=== PATIENT | female | born 1935 | race Caucasian/White ===

== ENCOUNTER → 2016-08-29 | Outpatient (CLI) | payer MEDICARE ==
[2016-08-29 14:19] LABS: CH 32.8; CHCM 34.4; HCT 41.4 % (34.0-46.0); HDW 2.51; HGB 13.8 gm/dL (11.4-16.0); MCH 31.9 pg (25.0-35.0); MCHC 33.3 g/dL (31.0-37.0); MCV 95.7 fL (80.0-100.0); Mean Platelet Volume 7.5; RBC 4.33 m/uL (3.80-5.40); WBC 6.5 k/uL (3.8-10.6)
== END | disposition home or self-care (01) ==
LOC: LABPAT 13:53
PROVIDERS: ATTEND Otolaryngology
DX: Z01.818 Encounter for other preprocedural examination (principal)
CPT/HCPCS: 85027

== ENCOUNTER 2016-09-07 10:24 | Day surgery (SDC) | payer MEDICARE ==
[2016-09-06 08:41] VITALS: BMI 30.2
--- NOTE | 2016-09-07 07:22 | HP ---
DATE OF ADMISSION: CHIEF COMPLAINT: Perforation of the left tympanic membrane. HISTORY OF PRESENT ILLNESS: This patient is a 81-year-old female who was recently seen in my office complaining having a plugged sensation in both ears. She wears bilateral hearing aids. At a time that she was seen in my office, clinical examination of the ears initially revealed bilaterally impacted cerumen which was removed without any difficulty. In addition to this, it was noted that there was a perforation in the left tympanic membrane. The patient states that she has had multiple ear surgeries at the [facility] over the years. The patient was advised that that the perforation could be closed using the Kartush patch and this would most likely improve the efficiency hearing aid. Therefore, she is scheduled undergo insertion of a left Kartush patch to a perforation of the left tympanic membrane under IV sedation or general anesthetic, depending on the Anesthesia Department's preference. Past medical history reveals the patient has ALLERGIES TO PENICILLIN AND SULFA. Current medications include Prevacid, losartan, Zoloft and hydrochlorothiazide. REVIEW OF SYSTEMS: Cardiovascular is positive for hypertension. Gastrointestinal system is positive for GERD. The remainder of the review of systems is essentially unremarkable. PHYSICAL EXAMINATION: This patient is a very pleasant 81-year-old female who is alert and cooperative. HEENT EXAMINATION: Patient is normocephalic. Right tympanic membrane is unremarkable. Left tympanic membrane has a small central perforation in the left tympanic membrane. The middle ear space appears to be free of any fluid or infection. Pupils are equal, round, and reactive to light and accommodation. Extraocular movements are within normal limits. Intranasal examination reveals moderate septal deviation with compensatory hypertrophy of inferior turbinates and a moderate amount of mucus on the mucous membranes and draining down the posterior pharyngeal wall. Palpation of the neck, cranial nerves II through XII and the remainder of the head and neck exam are all within normal limits. CHEST/CARDIOVASCULAR: Both lung gonzales are clear to percussion and auscultation. Patient is in regular sinus rhythm. S1 and S2 are present without any murmurs, S3s or S4s. Peripheral pulses are bilaterally symmetrical. ABDOMEN: There is no evidence of any masses, megaly or tenderness. The abdomen is soft. Skin is unremarkable. Musculoskeletal and neurological are within normal limits. PELVIC/RECTAL EXAM: The pelvic rectal exam is deferred at this time because the patient has done a regular basis at her family physician's office. The remainder of physical exam is unremarkable. IMPRESSION: Perforation of the left tympanic membrane. PLAN: The patient is scheduled to undergo insertion of a Kartush patch to a perforation of the left tympanic membrane under either IV sedation or general anesthesia, depending upon the anesthesia department's preference. Attention RNs in the presurgical area: I have not ordered any presurgical medications for this patient. That is to say, I have not ordered any presurgical prophylactic antibiotics for this patient. If the pharmacy department sends any presurgical prophylactic antibiotics to the presurgical area for this patient they should be returned and the patient's account should be credited appropriately. Again, I have not ordered any presurgical medications for this patient. I have explained the operation/procedure to the patient, including the risks, benefits, side effects, alternative therapies (including not receiving the proposed treatment or service), the likelihood of the patient achieving his/her goals, and potential recuperation problems for the procedure/sedation/analgesia, as well as any blood products, if indicated. I also explained to the patient the risks, benefits, and side effects of the alternatives, as well as the risks related to not receiving the proposed procedure, care treatment or services.
[~2016-09-07 10:24] MED LIST: DEXAMETHASONE SOD PHOSPHATE 10 MG/ML 1 ML VIAL IV ONE; HYDROmorphone 1 MG/ML 1 ML SYRINGE IVP PRN; LACTATED RINGERS 1,000 ML IV SCH; MIDAZOLAM 2 MG/2 ML VIAL IV PRN; ONDANSETRON 4 MG/2 ML VIAL IVP ONE; Pre Op ABX Message 1 EACH MISC MISCELLANE ONE; SCOPOLAMINE 1.5MG/72HR PATCH TRANSDERM ONE
[2016-09-07 10:47] VITALS: RESP 16; TEMP 97.4
[2016-09-07] MEDS ORDERED: LIDOCAINE 1% 20 ML VIAL (10MG/ML) FOR IV START INTRADERMA ONE (10:47)
[2016-09-07] MEDS ORDERED: OFLOXACIN 0.3% OPHTH DROPS 5 ML BOTTLE LEFT EAR ONE (12:14)
[2016-09-07] MEDS ORDERED: LIDOCAINE 1% INJ 10MG/ML (20 ML MDV) ONE (12:26)
[2016-09-07] MEDS ORDERED: PROPOFOL 10 MG/ML 20 ML VIAL IV ONE (12:26)
[2016-09-07] MEDS ORDERED: fentaNYL (PF) 50 MCG/ML 2 ML AMP ONE (12:26)
[2016-09-07] MEDS ORDERED: MIDAZOLAM 2 MG/2 ML VIAL ONE (12:26)
[2016-09-07 14:08] VITALS: BP 143/77; PULSE 77
--- NOTE | 2016-09-09 14:55 | OP ---
DATE OF SERVICE: 09/07/2016 SURGEON: CELENA CAPELLAN MD NUTRITIONALIST: PREOPERATIVE DIAGNOSIS: Perforation of the left tympanic membrane. POSTOPERATIVE DIAGNOSIS: Perforation of the left tympanic membrane. OPERATION: Insertion of a 5 mm Kartush patch to a perforation of the left tympanic membrane. ANESTHESIA: IV sedation with MAC. ESTIMATED BLOOD LOSS: Zero. SPECIMENS REMOVED: COMPLICATIONS: None. OPERATIVE FINDINGS: DESCRIPTION OF PROCEDURE: The patient was placed on the operating table in the supine position after uneventful IV induction and mask anesthesia, satisfactory IV sedation was obtained. Next, the patient's left ear was draped in the usual and customary fashion, and following this, using the Zeiss operating microscope and #3 Aural speculum, the left external auditory canal was cleansed of all wax and debris. Inspection revealed the patient had a central perforation and it was elected to use a 5 mm Kartush patch to cover this perforation. This patch was initially dipped in Ofloxacin otic solution and subsequently the lower leaf of the patch was trimmed to accommodate the ossicles in the middle ear space. Next, the patch was carefully placed in the perforation in the usual fashion and was carefully seated appropriately to cover the entire perforation. This was done without any significant difficulty. At this point, the procedure was terminated. There were no intraoperative complications. The patient tolerated the procedure well and was returned to the recovery room in satisfactory condition.
== END 2016-09-07 14:40 | disposition home or self-care (01) ==
LOC: OR 10:24
PROVIDERS: ATTEND Otolaryngology
DX: H72.92 Unspecified perforation of tympanic membrane, left ear (principal); I10 Essential (primary) hypertension; E78.5 Hyperlipidemia, unspecified; K21.9 Gastro-esophageal reflux disease without esophagitis; Z88.0 Allergy status to penicillin; Z88.2 Allergy status to sulfonamides; Z79.899 Other long term (current) drug therapy
CPT/HCPCS: 69610; J2250; J1100; J2405; J2001; J3010; J2704

== ENCOUNTER 2016-10-22 08:39 | Day surgery (SDC) | payer MEDICARE ==
[2016-10-18 15:04] VITALS: BMI 30.2
--- NOTE | 2016-10-22 05:13 | HP ---
DATE OF ADMISSION: Chief complaint is fluid in the right ear. HISTORY OF PRESENT ILLNESS: This patient is a 81-year-old female who was recently seen in my office complaining of a plugged sensation in her right ear. At this time the patient was seen in my office, clinical examination of the right ear revealed evidence of fluid and negative pressure in the right middle ear space representing, so-called chronic right serous otitis media. Patient was placed on a course of oral steroids namely Decadron for a period of approximately 10 days. Approximately 2 weeks later the patient was re-examined in the office and at that time stated that the right ear still felt as if it was plugged. Clinical examination once again revealed the patient had chronic right serous otitis media, so-called glue ear. It was therefore recommended that the patient undergo a right myringotomy with insertion of a ventilation tube under IV sedation with MAC. Past medical history reveals that the patient has allergies to PENICILLIN and to SULFA. Current medications include Prevacid, losartan, Zoloft and Symbicort inhaler. Previous surgeries include breast biopsy, which was positive for carcinoma, reconstruction of the left middle ear, right strabismus surgery, hysterectomy for cancer of the uterus, tonsillectomy, adenoidectomy, left knee replacement, multiple skin cancers removed, bunionectomy, urethral lithotomy, insertion of a left Kartush patch. ( ) is negative for diabetes mellitus, but positive for hypertension and asthma. Review of systems reveals that the cardiovascular system is positive for hypertension. Respiratory system is positive for asthma. Gastrointestinal system is positive for GERD. The remainder of review of systems is unremarkable. PHYSICAL EXAMINATION: This patient is a 81-year-old female who is alert and cooperative. HEENT EXAMINATION: Patient is normocephalic. Examination of left ear revealed the patient has a Kartush patch that is intact and in place. Examination of right ear reveals right tympanic membrane is dull with fluid in the right middle ear space. Pupils equal, round, and reactive to light and accommodation. Extraocular movements are within normal limits. Intranasal examination reveals moderate to severe septal deviation with compensatory hypertrophy of the inferior turbinates and moderate amount of mucus on mucous membranes draining down the posterior pharynx. Examination of oropharynx, palpation of the neck, cranial nerves 2 through 12 and remainder of the head and neck exam are all within normal limits. CHEST/CARDIOVASCULAR: Both lung gonzales are clear to percussion and auscultation. The patient is in regular sinus rhythm. S1 and S2 are present without any murmurs, S3s or S4s. Peripheral pulses are bilaterally symmetrical and within normal limits. ABDOMEN: There is no evidence of any masses, megaly or tenderness. The abdomen is soft. Skin is unremarkable. Musculoskeletal and neurological are within normal limits. PELVIC/RECTAL EXAM: The pelvic rectal exam is deferred at this time because the patient has this done on a regular basis at her family physician's office. The remainder of physical exam is essentially unremarkable. IMPRESSION: Chronic right serous otitis media. PLAN: The patient is scheduled to undergo a right myringotomy with insertion of a ventilation tube under IV sedation with MAC in the a.m. ATTENTION RNS IN THE PRESURGICAL AREA: I have not ordered any presurgical prophylactic antibiotics for this patient and therefore if the pharmacy department sends any presurgical prophylactic antibiotics to the presurgical area for this patient, please cancel that order and return the medication to the pharmacy department and make sure that the patient's account is credited appropriately. I have not ordered any presurgical medications for this patient. I have explained the operation/procedure to the patient, including the risks, benefits, side effects, alternative therapies (including not receiving the proposed treatment or service), the likelihood of the patient achieving his/her goals, and potential recuperation problems for the procedure/sedation/analgesia, as well as any blood products, if indicated. I also explained to the patient the risks, benefits, and side effects of the alternatives, as well as the risks related to not receiving the proposed procedure, care treatment or services.
[~2016-10-22 08:39] MED LIST changes: -DEXAMETHASONE SOD PHOSPHATE 10 MG/ML 1 ML VIAL IV ONE; -SCOPOLAMINE 1.5MG/72HR PATCH TRANSDERM ONE
[2016-10-22 09:02] VITALS: RESP 16; TEMP 97.9
[2016-10-22] MEDS ORDERED: LIDOCAINE 1% 20 ML VIAL (10MG/ML) FOR IV START INTRADERMA ONE (09:29)
[2016-10-22] MEDS ORDERED: OFLOXACIN 0.3% OTIC DROPS 5 ML BTL RIGHT EAR ONE (09:44)
[2016-10-22] MEDS ORDERED: PROPOFOL 10 MG/ML 20 ML VIAL IV ONE (10:13)
[2016-10-22] MEDS ORDERED: fentaNYL (PF) 50 MCG/ML 2 ML AMP ONE (10:13)
[2016-10-22] MEDS ORDERED: MIDAZOLAM 2 MG/2 ML VIAL ONE (10:13)
[2016-10-22] MEDS ORDERED: LIDOCAINE 1% INJ 10MG/ML (20 ML MDV) ONE (10:13)
[2016-10-22 11:02] VITALS: BP 137/78; PULSE 67
--- NOTE | 2016-10-22 23:33 | OP ---
DATE OF SERVICE: 10/22/2016 SURGEON: CELENA CAPELLAN MD NURSE LICENSED PRACTICAL: PREOPERATIVE DIAGNOSIS: Chronic right serous otitis media. POSTOPERATIVE DIAGNOSIS: Chronic right serous otitis media. OPERATION: Right myringotomy with insertion of an Activent ventilation tube. ANESTHESIA: IV sedation with M.A.C. ESTIMATED BLOOD LOSS: SPECIMENS REMOVED: COMPLICATIONS: None. OPERATIVE PROCEDURE: The patient was placed on the operating table in supine position. After uneventful induction and IV sedation, satisfactory sedation was obtained. Next the patient's right ear was draped in the usual and customary fashion, following which, using the Zeiss operating microscope and a #3 aural speculum, the right external auditory canal was cleansed of all wax and debris. 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 Using the myringotomy knife, an incision was made in the anterior/inferior quadrant of the right tympanic membrane. Middle ear space was suctioned free of a small amount of fluid and an Activent Khushi-Bobbin type ventilation tube was inserted through the previously made myringotomy incision without difficulty. At this point the procedure was terminated. There were no intraoperative complications. The patient tolerated the procedure well and was returned to the recovery room in satisfactory condition.
== END 2016-10-22 11:43 | disposition home or self-care (01) ==
LOC: OR 08:39
PROVIDERS: ATTEND Otolaryngology
DX: H65.21 Chronic serous otitis media, right ear (principal); J34.2 Deviated nasal septum; J34.3 Hypertrophy of nasal turbinates; H74.01 Tympanosclerosis, right ear; I10 Essential (primary) hypertension; J45.909 Unspecified asthma, uncomplicated; K21.9 Gastro-esophageal reflux disease without esophagitis; Z87.891 Personal history of nicotine dependence; Z79.51 Long term (current) use of inhaled steroids; Z79.899 Other long term (current) drug therapy; Z88.0 Allergy status to penicillin; Z88.2 Allergy status to sulfonamides
CPT/HCPCS: 69436; J2250; J2405; J2001; J3010; J2704

== ENCOUNTER → 2016-10-30 | Outpatient (CLI) | payer MEDICARE ==
--- NOTE | 2016-11-01 10:11 | MM ---
Reason for exam: history of breast cancer, mastectomy. Last mammogram was performed 1 year and 3 months ago. History: Patient is postmenopausal, has history of ovarian cancer at age 61, has history of breast cancer at age 48, has history of high-risk lesion on a previous biopsy at age 48, and is nulliparous. Family history of breast cancer in paternal aunt. Mastectomy of the left breast, 1983. Physical Findings: Nurse did not find any significant physical abnormalities on exam. MG Diagnostic Mammo RT w CAD CC and MLO view(s) were taken of the right breast. Prior study comparison: July 28, 2015, right breast MG 3d diag mammo w/cad RT. The breast tissue is heterogeneously dense. This may lower the sensitivity of mammography. No significant new findings when compared with previous films. These results were verbally communicated with the patient and result sheet given to the patient on 10/30/16. ASSESSMENT: Benign, BI-RAD 2 RECOMMENDATION: Follow-up diagnostic mammogram of the right breast in 1 year.
== END | disposition home or self-care (01) ==
LOC: RADMAMWWP 13:27
PROVIDERS: ATTEND Family Medicine
DX: Z08 Encounter for follow-up examination after completed treatment for malignant neoplasm (principal); Z85.3 Personal history of malignant neoplasm of breast

== ENCOUNTER → 2018-01-23 | Outpatient (CLI) | payer MEDICARE ==
--- NOTE | 2018-01-25 10:06 | MM ---
Reason for exam: additional evaluation requested from prior study. Last mammogram was performed 1 year and 3 months ago. History: Patient is postmenopausal, has history of ovarian cancer at age 61, has history of breast cancer at age 48, has history of high-risk lesion on a previous biopsy at age 48, and is nulliparous. Family history of breast cancer in paternal aunt. Mastectomy of the left breast, 1983. Physical Findings: Nurse did not find any significant physical abnormalities on exam. MG 3D Diag Mammo W/Cad RT CC, MLO, and ML view(s) were taken of the right breast. Prior study comparison: October 30, 2016, right breast MG diagnostic mammo RT w CAD. July 28, 2015, right breast MG 3d diag mammo w/cad RT. May 03, 2014, right breast MG diagnostic mammo RT w CAD. The breast tissue is heterogeneously dense. This may lower the sensitivity of mammography. Finding: There are benign vascular, round, linear, diffuse and grouped calcifications in the right breast. No discrete abnormality. These results were verbally communicated with the patient and result sheet given to the patient on 01/23/18. ASSESSMENT: Benign, BI-RAD 2 RECOMMENDATION: Follow-up diagnostic mammogram of the right breast in 1 year.
== END | disposition home or self-care (01) ==
LOC: RADMAMWWP 12:47
PROVIDERS: ATTEND Family Medicine
DX: Z08 Encounter for follow-up examination after completed treatment for malignant neoplasm (principal); Z85.3 Personal history of malignant neoplasm of breast
CPT/HCPCS: 77065; G0279; 77061

== ENCOUNTER → 2019-01-01 | Outpatient (CLI) | payer MEDICARE ==
--- NOTE | 2019-01-01 15:53 | US ---
EXAMINATION TYPE: US venous doppler duplex LE RT DATE OF EXAM: 01/01/2019 3:43 PM COMPARISON: NONE CLINICAL HISTORY: DVT RT Leg, knee area. Posterior right knee pain. No hx of blood clots. No blood t hinners. No redness or swelling. SIDE PERFORMED: Right TECHNIQUE: The lower extremity deep venous system is examined utilizing real time linear array sonog nithin with graded compression, doppler sonography and color-flow sonography. VESSELS IMAGED: External Iliac Vein (EIV) Common Femoral Vein Deep Femoral Vein Greater Saphenous Vein * Femoral Vein Popliteal Vein Small Saphenous Vein * Proximal Calf Veins (* superficial vessels) Right Leg: Negative for DVT Grayscale, color doppler, spectral doppler imaging performed of the deep veins of the right lower ext remity. There is normal flow, compressibility, vascular waveforms. IMPRESSION: No ultrasound evidence for acute DVT in the right lower extremity.
== END | disposition home or self-care (01) ==
LOC: RADMAMWWP 15:16
PROVIDERS: ATTEND Podiatrist Foot & Ankle Surgery
DX: I82.401 Acute embolism and thrombosis of unspecified deep veins of right lower extremity (principal)

== ENCOUNTER → 2019-01-27 | Outpatient (CLI) | payer MEDICARE ==
--- NOTE | 2019-01-27 14:21 | MM ---
Reason for exam: additional evaluation requested from prior study. Last mammogram was performed 1 year ago. History: Patient is postmenopausal, has history of ovarian cancer at age 61, has history of breast cancer at age 48, has history of high-risk lesion on a previous biopsy at age 48, and is nulliparous. Family history of breast cancer in paternal aunt. Mastectomy of the left breast, 1983. Physical Findings: Nurse did not find any significant physical abnormalities on exam. MG 3D Diag Mammo W/Cad RT CC, MLO, and ML view(s) were taken of the right breast. Prior study comparison: January 23, 2018, right breast MG 3d diag mammo w/cad RT. October 30, 2016, right breast MG diagnostic mammo RT w CAD. The breast tissue is heterogeneously dense. This may lower the sensitivity of mammography. There are benign appearing right calcifications. Posterior depth superior breast group on MLO is stable from 2016. No suspicious abnormality. No significant new findings when compared with previous films. These results were verbally communicated with the patient and result sheet given to the patient on 01/27/19. ASSESSMENT: Benign, BI-RAD 2 RECOMMENDATION: Follow-up diagnostic mammogram of the right breast in 1 year.
== END | disposition home or self-care (01) ==
LOC: RADMAMWWP 12:57
PROVIDERS: ATTEND Family Medicine
DX: Z85.3 Personal history of malignant neoplasm of breast (principal)
CPT/HCPCS: 77065; G0279; 77061

== ENCOUNTER 2020-08-01 09:10 | Day surgery (SDC) | payer MEDICARE ==
[2020-07-29 11:24] VITALS: BMI 29.2
--- NOTE | 2020-07-31 19:55 | HP ---
HISTORY AND PHYSICAL CHIEF COMPLAINT: Fluid in the left ear. HISTORY OF PRESENT ILLNESS: This patient is an 85-year-old female who was recently seen in my office for evaluation of decreased hearing in her left ear. She underwent a tympanoplasty without mastoidectomy with reconstruction of the ossicles of her left ear at the [facility] several years ago. At that time she had a ventilation tube placed in the left ear after surgery. There is extensive scar tissue of the left tympanic membrane. At the time that she was seen in my office, clinical examination of the left ear revealed that the left tympanic membrane was dull with evidence of fluid in the left middle ear space. The patient was placed on multiple courses of oral antibiotics and oral steroids without any significant improvement. On the last visit, the patient said that the left ear still felt blocked and clinical examination revealed that there was still fluid in the left middle ear space without evidence of any perforation. It was therefore recommended that the patient undergo a left myringotomy, insertion of a ventilation tube, possible possibly a Jaye T-type ventilation tubes under IV sedation with MAC. PAST MEDICAL HISTORY: Past medical history reveals patient has: ALLERGIES: TO PENICILLIN AND SULFA. CURRENT MEDICATIONS: Include Olmesartan/HCTZ, Flovent, Prevacid, Effexor. REVIEW OF SYSTEMS: Cardiovascular: Positive for hypertension. RESPIRATORY: Positive for asthma. Metabolic/endocrine is negative. GASTROINTESTINAL: Positive for GERD, gastroesophageal reflux disorder. The remainder of the review of systems in unremarkable. PREVIOUS SURGERIES: Include right myringotomy, with insertion of right ventilation tube, insertion of a left Kartush patch, left knee replacement, mastectomy for carcinoma, right strabismus surgery, hysterectomy for carcinoma of the uterus, tonsillectomy, adenoidectomy, tympanoplasty without mastoidectomy and reconstruction of the middle ear ossicles, urethral lithotomy, bunionectomy, and multiple skin cancers removed. PHYSICAL EXAMINATION: This patient is an 85-year-old female who was alert and cooperative. HEENT exam: The patient is normocephalic. Examination right ear is unremarkable. Examination of the left ear reveals left tympanic membrane shows scar tissue and evidence of fluid in the left middle ear space. Pupils equal, round, react to light and accommodation. Extraocular movements within normal limits. Intranasal examination reveals moderate to severe septal deviation with compensatory hypertrophy of the inferior turbinates and a moderate amount of mucus on the mucous membranes and draining down the posterior pharynx. Examination of the oropharynx, cranial nerves 2 through 12 and the remainder of the head and neck exam are within normal limits. Chest/cardiovascular: Both lung gonzales are clear to percussion and auscultation. The patient is in regular sinus rhythm. S1 and S2 are present. No murmurs S3s or S4s. Peripheral pulses are bilaterally symmetrical and within normal limits. ABDOMEN: There is no evidence any masses, megaly or tenderness. The abdomen is soft. Skin, neurological are within normal limits. MUSCULOSKELETAL: Within normal limits. Pelvic/rectal exam: The pelvic rectal exam is deferred at this time because the patient has this done on a regular basis at her family physician's office.The remainder of the physical exam is within normal limits. IMPRESSION: Chronic left serous otitis media. PLAN: The patient is scheduled to undergo a left myringotomy with insertion of a ventilation tube, possibly a Jaye T-type ventilation tube, with IV sedation with M.A.C.. Attention RNs in the pre-surgical area: The only pre-surgical prophylactic antibiotic that I have ordered for this patient is clindamycin 900 mg IV to be given in the pre- surgical area before surgery. If the pharmacy department sends a different pre- surgical prophylactic/antibiotic combination, please cancel that order and return the medication to the pharmacy department and make sure that the patient's account is credited appropriately. The patient is given clindamycin because of an ALLERGY TO PENICILLIN and because of a previous left knee replacement. MMODL / IJN: [id number] / MTDD
[~2020-08-01 09:10] MED LIST changes: -HYDROmorphone 1 MG/ML 1 ML SYRINGE IVP PRN; -LACTATED RINGERS 1,000 ML IV SCH; -MIDAZOLAM 2 MG/2 ML VIAL IV PRN; -ONDANSETRON 4 MG/2 ML VIAL IVP ONE
[2020-08-01] MEDS ORDERED: CLINDAMYCIN 900 MG in DEXTROSE 5% IN WATER 50 ML IVPB ONE ×2 (09:45)
[2020-08-01] MEDS ORDERED: LACTATED RINGERS 1,000 ML IV ONE ×2 (09:50→12:29)
[2020-08-01] MEDS ORDERED: LIDOCAINE 1% (10MG/ML) FOR IV START INTRADERMA ONE (09:51)
[2020-08-01] MEDS ORDERED: ONDANSETRON 4 MG/2 ML VIAL ONE (10:05)
[2020-08-01] MEDS ORDERED: ONDANSETRON 4 MG/2 ML VIAL IVP ONE (10:08)
[2020-08-01] MEDS ORDERED: ePHEDrine SULFATE/0.9% NACL/PF 50 MG/5 ML SYRINGE IV ONE (11:49)
[2020-08-01] MEDS ORDERED: fentaNYL (PF) 50 MCG/ML 2 ML AMP ONE (11:49)
[2020-08-01] MEDS ORDERED: PROPOFOL 10 MG/ML 20 ML VIAL IV ONE (11:49)
[2020-08-01] MEDS ORDERED: LIDOCAINE 1% INJ 10MG/ML (20 ML MDV) ONE (11:49)
[2020-08-01] MEDS ORDERED: MIDAZOLAM 2 MG/2 ML VIAL ONE (11:49)
[2020-08-01] MEDS ORDERED: OFLOXACIN 0.3% OPHTH DROPS 5 ML BOTTLE LEFT EAR ONE (12:10)
[2020-08-01] MEDS ORDERED: EPINEPHrine (PF) 1 MG/ML AMP MISCELLANE ONE (12:15)
[2020-08-01 12:42] VITALS: TEMP 97.2
[2020-08-01 12:55] VITALS: RESP 16
[2020-08-01 13:35] VITALS: BP 105/62; PULSE 100
--- NOTE | 2020-08-01 19:34 | OP ---
OPERATIVE REPORT DATE OF SURGERY: 08/01/2020. PREOPERATIVE DIAGNOSIS: Chronic left serous otitis media. POSTOPERATIVE DIAGNOSIS: Chronic left serous otitis media. ANESTHESIA: IV sedation with M.A.C. OPERATIVE PROCEDURE: Left myringotomy with insertion of a Jaye-type T-tube. SURGEON: Dr. Russell Armando COMPLICATIONS: None. ESTIMATED BLOOD LOSS: Zero. OPERATIVE PROCEDURE DESCRIPTION: The patient was placed on the operating table in supine position. After uneventful IV sedation, satisfactory sedation was obtained. Next, the patient's left ear was prepped and draped in the usual and customary fashion. Following this, using the Zeiss operating microscope and a #3 aural speculum, the left external auditory canal was cleansed of all wax and debris. Inspection of the left tympanic membrane revealed that approximately 85% of the tympanic membrane was scarred with tympanosclerosis and calcium deposits. Centrally there was an area of viable tympanic membrane where an incision could be made. Therefore, using the myringotomy knife, an incision was made in this area in the anterior inferior quadrant, and the left middle ear space was suctioned free of all fluid. There also appeared to be some additional material in the left middle ear space which most likely related to the patient's previous ossicular reconstruction. Next, a Jaye-type T-tube was inserted through the previously made myringotomy incision without difficulty. At this point, the procedure was terminated. There were no intraoperative complications. The patient tolerated the procedure well and was returned to the recovery room in satisfactory condition. MMODL / IJN: [id number] /
== END 2020-08-01 13:45 | disposition home or self-care (01) ==
LOC: OR 09:10
PROVIDERS: ATTEND Otolaryngology
DX: H65.22 Chronic serous otitis media, left ear (principal); I10 Essential (primary) hypertension; E78.5 Hyperlipidemia, unspecified; J44.9 Chronic obstructive pulmonary disease, unspecified; K21.9 Gastro-esophageal reflux disease without esophagitis; Z88.0 Allergy status to penicillin; Z88.2 Allergy status to sulfonamides; Z87.891 Personal history of nicotine dependence; Z87.442 Personal history of urinary calculi; Z79.899 Other long term (current) drug therapy
CPT/HCPCS: 69436; J2250; J2405; J0171; J2001; J3010; J2704

== ENCOUNTER → 2020-10-26 | Outpatient (CLI) | payer MEDICARE ==
--- NOTE | 2020-10-26 15:16 | CONS ---
CONSULTATION DATE OF SERVICE: 10/26/2020 INTERVAL HISTORY: This 85-year-old lady has been evaluated in the sleep center for possible obstructive sleep apnea-hypopnea syndrome and for significant amount of leg movements during the sleep. HISTORY OF PRESENT ILLNESS/SLEEP-WAKE EVALUATION: Patient's usual sleep schedule from 11 p.m. until 8 a.m. and she usually gets out of bed around 10 a.m. No problems with falling asleep. No TV in the bedroom. She sleeps in different position. She snores and wakes up from sleep 3 times with a dry mouth, heartburn and sweating. No history of nocturia. In the morning patient wakes up tired and has difficulties paying attention, problems with the memory, concentration, irritability, depression and anxiety. [place] Sleepiness Scale increased to 14. PAST MEDICAL HISTORY: Positive for hypertension, anxiety, arthritis of the neck and hands, lungs problems, possible COPD, prediabetes. PAST SURGICAL HISTORY: Treatment for cancer of the left breast with left side mastectomy, hysterectomy for ovarian cancer, left knee replacement, surgery for left ear problems for reconstruction of the middle ear. MEDICATIONS: Olmesartan hydrochlorothiazide 40-25 mg once a day, Flovent 44 mcg 3 times a day, lansoprazole once a day, sertraline 100 mg once a day, folic acid, turmeric. SOCIAL HISTORY: Positive for smoking for 30 pack years, quit in 1991. Alcohol consumption none for the last 40 years. FAMILY HISTORY: Diabetes, alcoholism. REVIEW OF SYSTEMS: Tiredness and sleepiness during the day. Patient takes 2 naps, usually afternoon, episodes of wheezing. PHYSICAL EXAMINATION: GENERAL: A lady without distress. VITAL SIGNS: BP 154/71, HR 87, RR 12, height 5 feet 2 inches, weight 165.8 pounds, temperature 97.9, oxygen saturation at room air 98%. Body mass index 30.1. HEENT: PERRLA, EOMI, evaluation of oropharynx showed tongue protrudes midline. NECK: Supple, no JVD. Thyroid is not palpable. LUNGS: Clear to percussion and to auscultation. Good air exchange. No wheezing or rhonchi. HEART: S1, S2 regular. No murmurs, gallops, or rubs. ABDOMEN: Soft and nontender. Bowel sounds are present. No organomegaly appreciated. EXTREMITIES: No clubbing or cyanosis. TURBO GENERATOR OILER: Awake, alert, and oriented X3. Cranial nerves 2 to 7 intact. There is no fasciculation or atrophy. noted. No focal deficits observed. IMPRESSION: 1. Snoring, awakenings from sleep, extremely low position of soft palate, sleepiness. [place] Sleepiness Scale increased to 14. Possible obstructive sleep apnea- hypopnea syndrome. 2. Restless leg symptoms. 3. History of twitching legs during the night, periodic limb movements. 4. Hypertension. 5. Anxiety. 6. Arthritis of neck and hands. 7. Chronic obstructive pulmonary disease. 8. Prediabetes. 9. Status post left mastectomy for breast carcinoma. 10.History of ovarian cancer, status post total hysterectomy. 11.Status post left knee replacement. 12.Status post left internal ear reconstruction surgery. PLAN: 1. Polysomnography for evaluation of patient's breathing during sleep and also to check for periodic limb movements. 2. CPAP/BiPAP titration if sleep study confirms obstructive sleep apnea-hypopnea syndrome. 3. Preferable position during sleep on the side. 4. No driving if patient feels any sleepiness. 5. I will see patient for follow up visit to explain results of testing and following plan. Thank you very much for referring this patient for consultation. Sincerely, Chris Woods MD, PhD, FAASM Diplomat of [place] [employer] [employer] Information Services Vice President of [facility] [place] MMDANYELL / CASSANDRA: [id number] /
== END ==
LOC: SLEEP 13:39
PROVIDERS: ATTEND Internal Medicine
DX: R06.83 Snoring (principal); G25.81 Restless legs syndrome; G47.61 Periodic limb movement disorder; I10 Essential (primary) hypertension; F41.9 Anxiety disorder, unspecified; M47.812 Spondylosis without myelopathy or radiculopathy, cervical region; M19.042 Primary osteoarthritis, left hand; M19.041 Primary osteoarthritis, right hand; J44.9 Chronic obstructive pulmonary disease, unspecified; F32.9 Major depressive disorder, single episode, unspecified; R73.03 Prediabetes; Z90.12 Acquired absence of left breast and nipple; Z85.43 Personal history of malignant neoplasm of ovary; Z90.710 Acquired absence of both cervix and uterus; Z96.652 Presence of left artificial knee joint; Z96.29 Presence of other otological and audiological implants; Z85.3 Personal history of malignant neoplasm of breast; Z79.899 Other long term (current) drug therapy; Z87.891 Personal history of nicotine dependence; Z79.51 Long term (current) use of inhaled steroids
CPT/HCPCS: 99211

== ENCOUNTER → 2021-04-06 | Outpatient (CLI) | payer MEDICARE ==
--- NOTE | 2021-04-06 18:08 | SFUN ---
SLEEP CENTER FOLLOW UP NOTE DATE OF SERVICE: 04/06/2021. This 85-year-old lady has been followed in Sleep Center for treatment of obstructive sleep apnea-hypopnea syndrome. Recently the patient had a polysomnogram which showed moderate obstructive sleep apnea- hypopnea syndrome. Then the patient had CPAP titration. Today is her first visit after starting to use her CPAP equipment. At present the patient is using a full-face mask. I feel that there is some leak from the mask. She also tried a nasal pillow mask, and she likes the nasal pillow mask better. [place] Sleepiness Scale today is 8. I discussed results of the polysomnogram and CPAP titration with the patient in detail. Her questions about the result of her sleep studies were answered in detail. I checked her CPAP unit. Range of the pressure is 5 to 15 with average pressure 13.9, usage 29/30 nights and 25/30 nights for more than 4 hours, indicating good compliance. Leak is 16 L/minute, which is borderline. Apnea-hypopnea index is 4.7, which is normal. The patient still feels some tiredness during the day. Both sleep studies showed a significant amount of periodic limb movements, in severe range. MEDICATIONS: Lansoprazole, sertraline 100 mg once a day, folic acid, turmeric, Flovent 45 mcg 4 times a day, olmesartan/hydrochlorothiazide 40/25 mg once a day. PHYSICAL EXAMINATION: GENERAL APPEARANCE: Pleasant patient in no distress. VITAL SIGNS: BP 142/60, HR 75, RR 16, weight 163.6, temperature 97.3, oxygen saturation at room air 95%. HEENT: PERRLA, EOMI, evaluation of oropharynx showed tongue protrudes midline. NECK: Supple, no JVD. Thyroid is not palpable. LUNGS: Clear to percussion and to auscultation. Good air exchange. No wheezing or rhonchi. HEART: S1, S2 regular. No murmurs, gallops, or rubs. ABDOMEN: Soft and nontender. Bowel sounds are present. No organomegaly appreciated. EXTREMITIES: No clubbing or cyanosis. PILL MACHINE OPERATOR: Awake, alert, and oriented X3. Cranial nerves 2 to 7 intact. There is no fasciculation or atrophy. noted. No focal deficits observed. IMPRESSION: 1. Moderate obstructive sleep apnea-hypopnea syndrome. Apnea-hypopnea index 26.8 with oxygen desaturation to 81.4%. Patient demonstrated good compliance with treatment. Normal respiration on CPAP. Patient is experiencing some discomfort with the full- face mask; dryness in the mouth. 2. Severe periodic limb movements documented during both sleep studies. 3. Hypertension. 4. Anxiety. 5. History of chronic obstructive pulmonary disease. 6. Prediabetes. 7. Status post left mastectomy for breast carcinoma. 8. History of ovarian carcinoma, status post total hysterectomy. 9. Status post left knee replacement. 10.Status post left internal ear reconstruction surgery. PLAN: 1. Patient will try to use nasal pillow mask with a chin strap. Prescription for chin strap was written. 2. Prescription for Mirapex 0.125 mg 1-2 tablets at bedtime. 3. Patient will continue to use PAP equipment every night for the whole night. 4. Sleep hygiene with regular time in bed for at least 7-1/2 to 8 hours. 5. Precautions related to driving. No driving if feeling sleepiness. 6. I will maintain all necessary prescription for PAP supplies including mask, tube, filters. 7. Watching weight. 8. Follow-up visit in 6 months or earlier if patient has any problems. 9. I discussed with the patient in detail how to keep the machine. I explained to her how to adjust humidity, the necessity of changing the air filter at least once a month. Thank you very much for allowing me to participate in the management of your patient. Sincerely, Chris Woods MD, PhD, FAASM Diplomat of [place] [employer] Sleep Medicine Board of [place] [employer] Hog Buyer of [facility] [place] MMPRAMODL / YESSICAN: [id number] /
== END ==
LOC: SLEEP 10:59
PROVIDERS: ATTEND Internal Medicine
DX: G47.33 Obstructive sleep apnea (adult) (pediatric) (principal); G47.36 Sleep related hypoventilation in conditions classified elsewhere; G47.61 Periodic limb movement disorder; I10 Essential (primary) hypertension; F41.9 Anxiety disorder, unspecified; J44.9 Chronic obstructive pulmonary disease, unspecified; R73.03 Prediabetes; Z90.12 Acquired absence of left breast and nipple; Z85.43 Personal history of malignant neoplasm of ovary; Z96.652 Presence of left artificial knee joint; Z98.890 Other specified postprocedural states; Z90.711 Acquired absence of uterus with remaining cervical stump; Z99.89 Dependence on other enabling machines and devices; Z88.0 Allergy status to penicillin; Z88.2 Allergy status to sulfonamides

== ENCOUNTER 2021-05-17 00:18 | Inpatient (IN) | payer MEDICARE ==
[2021-05-17] MEDS ORDERED: SODIUM CHLORIDE 0.9% 500 ML 500 ML IV STA (00:41)
[2021-05-17 01:58] LABS: Basophils # (A) 0.1 k/uL (0-0.2); Basophils % (A) 1 %; Eosinophils # (A) 0.3 k/uL (0-0.7); Eosinophils % (A) 2 %; HCT 40.6 % (34.0-46.0); HGB 13.8 gm/dL (11.4-16.0); Lymphocytes # (A) 1.5 k/uL (1.0-4.8); Lymphocytes % (A) 13 %; MCV 93.9 fL (80.0-100.0); Mean Platelet Volume 7.3; Monocytes # (A) 0.4 k/uL (0-1.0); Monocytes % (A) 4 %; Neutrophils # (A) 8.5 k/uL (1.3-7.7); Neutrophils % (A) 79 %; Platelet Count 268 k/uL (150-450); RBC 4.33 m/uL (3.80-5.40); WBC 10.8 k/uL (3.8-10.6)
[2021-05-17 02:06] LABS: Appearance,Urine Clear (Clear); Bilirubin,Urine Negative (Negative); Blood,Urine Negative (Negative); Color,Urine Light Yellow; Glucose,Urine (UA) Negative (Negative); Ketones,Urine Negative (Negative); Leukocyte Esterase,Urine Negative (Negative); Nitrite,Urine Negative (Negative); PH, Urine 6.5 (5.0-8.0); Protein,Urine Negative (Negative); Urobilinogen,Urine <2.0 mg/dL (<2.0)
[2021-05-17 02:27] LABS: Albumin 4.3 g/dL (3.5-5.0); Calcium 9.8 mg/dL (8.4-10.2); Potassium 4.1 mmol/L (3.5-5.1); Total Bilirubin 0.4 mg/dL (0.2-1.3); Total Protein 7.2 g/dL (6.3-8.2)
--- NOTE | 2021-05-17 03:06 | ED ---
Abdominal Pain HPI - General Chief Complaint: Abdominal Pain Stated Complaint: Abd Pain Time Seen by Provider: 05/17/21 00:33 Source: patient, EMS Mode of arrival: EMS Limitations: no limitations - History of Present Illness Initial Comments: 85-year-old female patient presents to the emergency department today for evaluation of lower abdominal pain and nausea after eating a lot of Nanci candy today. Patient states that she started having pain just a couple hours prior to arrival. States she thought it was gas but was unable to. Denies taking any medication for her symptoms. She has not had any vomiting. States she did have a bowel movement earlier in the day. A short brief episode of diarrhea this evening. She denies any fevers but states she has been chilled. She has had bowel obstruction in the past. She has had hysterectomy and hernia repair. She denies any chest pain or shortness of breath. Denies any hematuria, dysuria, urinary urgency, urinary frequency. - Related Data Home Medications Medication Instructions Recorded Confirmed Lansoprazole [Prevacid] 15 mg PO DAILY 08/11/14 08/01/20 Fluticasone Propionate [Flovent 2 puff INHALATION BID 07/29/20 08/01/20 Hfa 44 mcg] Folic Acid 0.8 mg PO DAILY 07/29/20 08/01/20 Multivitamins, Thera [Multivitamin 1 tab PO DAILY 07/29/20 08/01/20 (formulary)] Olmesartan/Hydrochlorothiazide 1 each PO DAILY 07/29/20 08/01/20 [Olmesartan-Hctz 40-25 mg Tab] Sertraline [Zoloft] 100 mg PO DAILY 07/29/20 08/01/20 Allergies Allergy/AdvReac Type Severity Reaction Status Date / Time Penicillins Allergy Rash/Hives Verified 08/01/20 09:40 Sulfa (Sulfonamide Allergy Unknown Verified 08/01/20 09:40 Antibiotics) Childhood Review of Systems ROS Statement: Those systems with pertinent positive or pertinent negative responses have been documented in the HPI. ROS Other: All systems not noted in ROS Statement are negative. Past Medical History Past Medical History: Cancer, GERD/Reflux, Hearing Disorder / Deafness, Hypertension, Osteoarthritis (OA), Respiratory Disorder, Skin Disorder Additional Past Medical History / Comment(s): HX AURA MIGRAINES HX LT BREAST CA, OVARIAN CA, & SKIN CA (NUMEROUS SITES). BRONCHITIS. VARICOSE VEINS. HX KIDNEY STONES-YRS AGO. 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 LT MASTECTOMY. LT TOTAL KNEE. KIDNEY STONE SURGICALLY REMOVED YRS AGO. alexia cataracts with lens implants Past Anesthesia/Blood Transfusion Reactions: Previous Problems w/ Anesthesia Additional Past Anesthesia/Blood Transfusion Reaction / Comment(s): HAD HEMORRHAGING W/ INTUBATION FOR EAR SURGERY-SURGERY WAS CANCELLED AT THAT TIME; POSS DIFF INTUBATING. was in ICU for 3 days. pt states her PCP has been unable to get anesthesia record from [facility]. Past Psychological History: Anxiety Smoking Status: Former smoker - Past Family History Father Family Medical History: Cancer Mother Family Medical History: Cancer Mother Brother(s) Family Medical History: Cancer Brother(s) Family Medical History: Cancer General Exam Limitations: no limitations General appearance: alert, in no apparent distress, other (This is a well- developed, well-nourished elderly female patient in no acute distress.) ENT exam: Present: normal exam, normal oropharynx, mucous membranes moist Respiratory exam: Present: normal lung sounds bilaterally. Absent: respiratory distress, wheezes, rales, rhonchi, stridor Cardiovascular Exam: Present: regular rate, normal rhythm, normal heart sounds. Absent: systolic murmur, diastolic murmur, rubs, gallop, clicks GI/Abdominal exam: Present: soft, tenderness (Lower abdominal tenderness), normal bowel sounds. Absent: distended, guarding, rebound, rigid Neurological exam: Present: alert, oriented X3, CN II-XII intact Psychiatric exam: Present: normal affect, normal mood Skin exam: Present: warm, dry, intact, normal color. Absent: rash Course Vital Signs 05/17/21 00:21 Temperature 98.0 F Pulse Rate 92 Respiratory 96 H Rate Blood Pressure 167/80 O2 Sat by Pulse 97 Oximetry Medical Decision Making - Medical Decision Making 85-year-old female patient presents to the emergency department for evaluation of lower abdominal pain and nausea. Unable to pass gas this evening. Does have history of bowel obstruction. Physical examination did reveal lower abdominal tenderness. She is afebrile. Labs showed acute kidney injury.. CT abdomen and pelvis did reveal partial small bowel obstruction. To be admitted to the hospital for further evaluation and monitoring. She is agreeable this plan. My attending is Dr. Hayes. - Lab Data Result diagrams: 05/17/21 01:25 05/17/21 01:25 Lab Results 05/17/21 05/17/21 05/17/21 Range/Units 01:25 01:25 01:25 WBC 10.8 H (3.8-10.6) k/uL RBC 4.33 (3.80-5.40) m/uL Hgb 13.8 (11.4-16.0) gm/dL Hct 40.6 (34.0-46.0) % MCV 93.9 (80.0-100.0) fL MCH 32.0 (25.0-35.0) pg MCHC 34.0 (31.0-37.0) g/dL RDW 12.0 (11.5-15.5) % Plt Count 268 (150-450) k/uL MPV 7.3 Neutrophils % 79 % Lymphocytes % 13 % Monocytes % 4 % Eosinophils % 2 % Basophils % 1 % Neutrophils # 8.5 H (1.3-7.7) k/uL Lymphocytes # 1.5 (1.0-4.8) k/uL Monocytes # 0.4 (0-1.0) k/uL Eosinophils # 0.3 (0-0.7) k/uL Basophils # 0.1 (0-0.2) k/uL Sodium 138 (137-145) mmol/L Potassium 4.1 (3.5-5.1) mmol/L Chloride 106 (98-107) mmol/L Carbon Dioxide 20 L (22-30) mmol/L Anion Gap 12 mmol/L BUN 28 H (7-17) mg/dL Creatinine 1.22 H (0.52-1.04) mg/dL Est GFR (CKD-EPI)AfAm 47 (>60 ml/min/1.73 sqM) Est GFR (CKD-EPI)NonAf 41 (>60 ml/min/1.73 sqM) Glucose 147 H (74-99) mg/dL Plasma Lactic Acid Robbi (0.7-2.0) mmol/L Calcium 9.8 (8.4-10.2) mg/dL Total Bilirubin 0.4 (0.2-1.3) mg/dL AST 28 (14-36) U/L ALT 19 (4-34) U/L Alkaline Phosphatase 104 (38-126) U/L Troponin I (0.000-0.034) ng/mL Total Protein 7.2 (6.3-8.2) g/dL Albumin 4.3 (3.5-5.0) g/dL Lipase 14 L (23-300) U/L Urine Color Light Yellow Urine Appearance Clear (Clear) Urine pH 6.5 (5.0-8.0) Ur Specific [place] 1.010 (1.001-1.035) Urine Protein Negative (Negative) Urine Glucose (UA) Negative (Negative) Urine Ketones Negative (Negative) Urine Blood Negative (Negative) Urine Nitrite Negative (Negative) Urine Bilirubin Negative (Negative) Urine Urobilinogen <2.0 (<2.0) mg/dL Ur Leukocyte Esterase Negative (Negative) 05/17/21 05/17/21 Range/Units 01:25 01:25 WBC (3.8-10.6) k/uL RBC (3.80-5.40) m/uL Hgb (11.4-16.0) gm/dL Hct (34.0-46.0) % MCV (80.0-100.0) fL MCH (25.0-35.0) pg MCHC (31.0-37.0) g/dL RDW (11.5-15.5) % Plt Count (150-450) k/uL MPV Neutrophils % % Lymphocytes % % Monocytes % % Eosinophils % % Basophils % % Neutrophils # (1.3-7.7) k/uL Lymphocytes # (1.0-4.8) k/uL Monocytes # (0-1.0) k/uL Eosinophils # (0-0.7) k/uL Basophils # (0-0.2) k/uL Sodium (137-145) mmol/L Potassium (3.5-5.1) mmol/L Chloride (98-107) mmol/L Carbon Dioxide (22-30) mmol/L Anion Gap mmol/L BUN (7-17) mg/dL Creatinine (0.52-1.04) mg/dL Est GFR (CKD-EPI)AfAm (>60 ml/min/1.73 sqM) Est GFR (CKD-EPI)NonAf (>60 ml/min/1.73 sqM) Glucose (74-99) mg/dL Plasma Lactic Acid Robbi 1.2 (0.7-2.0) mmol/L Calcium (8.4-10.2) mg/dL Total Bilirubin (0.2-1.3) mg/dL AST (14-36) U/L ALT (4-34) U/L Alkaline Phosphatase (38-126) U/L Troponin I <0.012 (0.000-0.034) ng/mL Total Protein (6.3-8.2) g/dL Albumin (3.5-5.0) g/dL Lipase (23-300) U/L Urine Color Urine Appearance (Clear) Urine pH (5.0-8.0) Ur Specific [place] (1.001-1.035) Urine Protein (Negative) Urine Glucose (UA) (Negative) Urine Ketones (Negative) Urine Blood (Negative) Urine Nitrite (Negative) Urine Bilirubin (Negative) Urine Urobilinogen (<2.0) mg/dL Ur Leukocyte Esterase (Negative) - EKG Data -: EKG Interpreted by [facility] EKG Comments: EKG obtained at this 1:30 shows sinus rhythm with an incomplete right bundle branch block. Ventricular rate is 83, PA interval 154, QRS duration 112, QT 382, QTc 448. - Radiology Data Radiology results: report reviewed, image reviewed T abdomen and pelvis was obtained without contrast. Report reviewed in its entirety. Impression by Dr. Edmonds shows dilated small bowel suggestive of partial mechanical small bowel obstruction. Mild free fluid in the pelvis. Sigmoid diverticulosis. Disposition Clinical Impression: Small bowel obstruction, Acute kidney injury Disposition: ADMITTED IP TO [facility] Condition: Serious Referrals: Maribeth Campo MD [Primary Care Provider] - 1-2 days Decision to Admit Reason: Admit from EC Decision Date: 05/17/21 Decision Time: 03:39
--- NOTE | 2021-05-17 03:11 | CT ---
EXAMINATION TYPE: CT abdomen pelvis wo con DATE OF EXAM: 05/17/2021 COMPARISON: None HISTORY: ABD PAIN, VOMITING CT DLP: 559.70 mGycm Automated exposure control for dose reduction was used. Images obtained from the diaphragm to the floor the pelvis without contrast. FINDINGS: Lung bases are clear. There is no pleural effusion. Heart size is normal. There is no pericardial eff usion. There is hiatal hernia. Stomach is intact. Liver spleen pancreas gallbladder appear intact. The bile ducts are not dilated. There is no adrenal mass. Kidneys have normal size. There is no hydronephrosis. There is 4 mm calculu s upper pole left kidney. Ureters are not dilated. There is no retroperitoneal adenopathy. Bladder di stends smoothly. There is mild free fluid in the pelvis. There is no inguinal hernia. There is no cory dence of pelvic mass. There is previous surgery in the pelvis. There are some mildly dilated loops of small bowel in the upper abdomen.. The small bowel measures up to 3.3 cm. There are multiple fluid levels. Transition point not seen. Terminal ileum is not dilated . There are multiple sigmoid diverticula. There is no diverticulitis. There is multilevel lumbar spondylotic changes. There is mild dextroscoliosis. There is lumbar multil evel spinal stenosis due to endplate spur formation and facet arthropathy. There is no compression fr acture. There is multilevel facet arthropathy. Abdominal aorta is atheromatous. IMPRESSION: Dilated small bowel suggestive of partial mechanical small bowel obstruction. Mild free fluid in the pelvis. Sigmoid diverticulosis.
[2021-05-17] MEDS ORDERED: NALOXONE 0.4 MG/ML 1 ML VIAL IV PRN (03:27)
[2021-05-17] MEDS ORDERED: ONDANSETRON 4 MG/2 ML VIAL IVP PRN (03:36)
[2021-05-17] MEDS: MORPHINE SULFATE 2 MG/ML SYRINGE IV PRN ×2 (04:32→10:00)
[2021-05-17] MEDS: SODIUM CHLORIDE 0.9% 1,000 ML IV SCH ×2 (04:47→20:51)
--- NOTE | 2021-05-17 12:40 | P.HPIM ---
History of Present Illness Patient is a pleasant 85-year-old female came in with complaints of crampy moderate severe lower abdominal pain along with nausea vomiting which she attributes to a lot of Nanci and the she was eating. Patient has bowel movement was yesterday patient is found to have partial small bowel obstruction because of which patient is being admitted with NG tube. Patient is also hyponatremic and does have acute renal failure secondary to nausea vomiting. Patient denied any fever chills. REVIEW OF SYSTEMS: CONSTITUTIONAL: No fever, no malaise, no fatigue. HEENT: No recent visual problems or hearing problems. Denied any sore throat. CARDIOVASCULAR: No chest pain, orthopnea, PND, no palpitations, no syncope. PULMONARY: No shortness of breath, no cough, no hemoptysis. GASTROINTESTINAL: As mentioned in HPI. NEUROLOGICAL: No headaches, no weakness, no numbness. HEMATOLOGICAL: Denies any bleeding or petechiae. GENITOURINARY: Denies any burning micturition, frequency, or urgency. MUSCULOSKELETAL/RHEUMATOLOGICAL: Denies any joint pain, swelling, or any muscle pain. ENDOCRINE: Denies any polyuria or polydipsia. The rest of the 14-point review of systems is negative. PHYSICAL EXAMINATION: GENERAL: The patient is alert and oriented x3, not in any acute distress. Well developed, well nourished. HEENT: Pupils are round and equally reacting to light. EOMI. No scleral icterus. No conjunctival pallor. Normocephalic, atraumatic. No pharyngeal erythema. No thyromegaly. CARDIOVASCULAR: S1 and S2 present. No murmurs, rubs, or gallops. PULMONARY: Chest is clear to auscultation, no wheezing or crackles. ABDOMEN: Soft, nontender, nondistended, bowel sounds present no palpable organomegaly. MUSCULOSKELETAL: No joint swelling or deformity. EXTREMITIES: No cyanosis, clubbing, or pedal edema. NEUROLOGICAL: Gross neurological examination did not reveal any focal deficits. SKIN: No rashes. Assessment and plan -partial small bowel obstruction: Conservative measures, IV fluids continue with NG tube with low intermittent suction, avoid morphine if possible, patient will be started on IV Tylenol for pain. -Acute renal failure prerenal azotemia secondary to intravascular depletion from nausea vomiting patient can you done IV fluids increase the rate of IV fluids -Hypertension: Holding off on ESTRELLA inhibitor and a diuretic temporarily for now -Gastroesophageal reflux disease DVT prophylaxis: Subcutaneous heparin Past Medical History Past Medical History: Cancer, GERD/Reflux, Hearing Disorder / Deafness, Hypertension, Osteoarthritis (OA), Respiratory Disorder, Skin Disorder Additional Past Medical History / Comment(s): HX AURA MIGRAINES HX LT BREAST CA, OVARIAN CA, & SKIN CA (NUMEROUS SITES). BRONCHITIS. VARICOSE VEINS. HX KIDNEY STONES-YRS AGO. SQUAXIN ALEXIA EARS- WEARS ALEXIA AIDS - LT EAR WORSE (RECENTLY PATCHED), "prediabetic"-no rx History of Any Multi-Drug Resistant Organisms: None Reported Past Surgical History: Breast Surgery, Ear Surgery, Hysterectomy, Joint Replacem ent, Orthopedic Surgery, Tubal Ligation Additional Past Surgical History / Comment(s): LEFT EAR SURGERY X3, PATCH DONE, ALEXIA BUNIONECTOMY. LT MASTECTOMY. LT TOTAL KNEE. KIDNEY STONE SURGICALLY REMOVED YRS AGO. alexia cataracts with lens implants Past Anesthesia/Blood Transfusion Reactions: Previous Problems w/ Anesthesia Additional Past Anesthesia/Blood Transfusion Reaction / Comment(s): HAD HEMORRHAGING W/ INTUBATION FOR EAR SURGERY-SURGERY WAS CANCELLED AT THAT TIME; POSS DIFF INTUBATING. was in ICU for 3 days. pt states her PCP has been unable to get anesthesia record from [facility]. Past Psychological History: Anxiety Smoking Status: Former smoker - Past Family History Father Family Medical History: Cancer Mother Family Medical History: Cancer Mother Brother(s) Family Medical History: Cancer Brother(s) Family Medical History: Cancer Medications and Allergies Home Medications Medication Instructions Recorded Confirmed Type Fluticasone Propionate [Flovent 2 puff INHALATION RT-BID 07/29/20 05/17/21 History Hfa 44 mcg] Folic Acid 0.8 mg PO DAILY 07/29/20 05/17/21 History Olmesartan/Hydrochlorothiazide 1 tab PO DAILY 07/29/20 05/17/21 History [Olmesartan-Hctz 40-25 mg Tab] Sertraline [Zoloft] 100 mg PO DAILY 07/29/20 05/17/21 History Ammonium Lactate Cream [Lac-Hydrin 1 applic TOPICAL DAILY 05/17/21 05/17/21 History 12% Cream] Multivit-Min/Iron/Folic/Lutein 1 tab PO DAILY 05/17/21 05/17/21 History [Centrum Silver Women Tablet] Omeprazole 20 mg PO DAILY 05/17/21 05/17/21 History Allergies Allergy/AdvReac Type Severity Reaction Status Date / Time Penicillins Allergy Rash/Hives Verified 05/17/21 07:12 Sulfa (Sulfonamide Allergy Rash/Hives Verified 05/17/21 07:12 Antibiotics) Physical Exam Vitals: Vital Signs Temp Pulse Resp BP Pulse Ox 05/17/21 10:00 97.9 F 80 18 143/80 98 05/17/21 06:19 85 16 135/61 95 05/17/21 04:11 98.0 F 94 20 157/81 96 05/17/21 00:21 98.0 F 92 16 167/80 97 Intake and Output 05/16/21 05/17/21 05/17/21 22:59 06:59 14:59 Other: Weight 74.843 kg Results CBC & Chem 7: 05/17/21 01:25 05/17/21 01:25 Labs: Abnormal Lab Results - Last 24 Hours (Table) 05/17/21 05/17/21 Range/Units 01:25 01:25 WBC 10.8 H (3.8-10.6) k/uL Neutrophils # 8.5 H (1.3-7.7) k/uL Carbon Dioxide 20 L (22-30) mmol/L BUN 28 H (7-17) mg/dL Creatinine 1.22 H (0.52-1.04) mg/dL Glucose 147 H (74-99) mg/dL Lipase 14 L (23-300) U/L
--- NOTE | 2021-05-17 12:45 | P.GSCN ---
<Mago Atkinson - Last Filed: 05/17/21 12:40> History of Present Illness Consult date: 05/17/21 History of present illness: CHIEF COMPLAINT: Abdominal pain HISTORY OF PRESENT ILLNESS: This is an 85-year-old female with a prior history of bowel obstruction requiring lysis of adhesions 40 years ago. Patient reports that she started to have lower abdominal pain yesterday evening around [address] she ate a bunch of Nanci candy. Patient had nausea and vomiting. She did have an episode of diarrhea. She reports that her abdomen was distended. Her prior surgical history includes hysterectomy and tubal ligation. Patient has computed tomography scan abdomen showed evidence of a partial mechanical small bowel obstruction. Patient had NG tube placed in the emergency room. Surgical consult was placed for small bowel obstruction. Patient does admit to passing a small amount of gas since NG tube placed. Patient denies any fever, chills or sweats. PAST MEDICAL HISTORY: See list. PAST SURGICAL HISTORY: See list. MEDICATIONS: See list. ALLERGIES: See list. SOCIAL HISTORY: No illicit drug use. REVIEW OF SYSTEMS: CONSTITUTIONAL: Denies fever or chills. HEENT: Denies blurred vision, vision changes, or eye pain. Denies hemoptysis CARDIOVASCULAR: Denies chest pain or pressure. RESPIRATORY: No shortness of breath. GASTROINTESTINAL: See HPI for pertinent findings HEMATOLOGIC: Denies bleeding disorders. GENITOURINARY: Denies any blood in urine or increased urinary frequency. SKIN: Denies pruitis. Denies rash. PHYSICAL EXAM: VITAL SIGNS: Reviewed GENERAL: Well-developed in no acute distress. HEENT: No sclera icterus. Extraocular movements grossly intact. Moist buccal mucosa. Head is atraumatic, normocephalic. No nasal drainage. ABDOMEN: Soft. Distended. Tenderness to palpation of lower abdomen. NEUROLOGIC: Alert and oriented. Cranial nerves II through XII grossly intact. LABORATORY DATA: WBC 10.8 Hgb 13.8 platelets 268 sodium 138 potassium 4.1 creatinine 1.22 lactic acid 1.2 LFTs normal urinalysis negative COVID-19 not detected IMAGING: Computed tomography scan abdomen and pelvis shows dilated small bowel suggestive of partial mechanical small bowel obstruction. Mild free fluid in the pelvis. Sigmoid diverticulosis. ASSESSMENT: 1. Partial mechanical small bowel obstruction 2. Prior history of bowel obstruction secondary to adhesions status post lysis of adhesions several years ago PLAN: -Check abdominal x-ray in the morning for follow-up on bowel obstruction -Continue NG tube for decompression -Keep patient nothing by mouth -Continue IV fluids -Continue pain medication as needed -GI prophylaxis Protonix and DVT prophylaxis subcu heparin Physician Solar Energy System Installer Helper note has been reviewed by physician. Signing provider agrees with the documented findings, assessment, and plan of care. Past Medical History Past Medical History: Cancer, GERD/Reflux, Hearing Disorder / Deafness, H ypertension, Osteoarthritis (OA), Respiratory Disorder, Skin Disorder Additional Past Medical History / Comment(s): HX AURA MIGRAINES HX LT BREAST CA, OVARIAN CA, & SKIN CA (NUMEROUS SITES). BRONCHITIS. VARICOSE VEINS. HX KIDNEY STONES-YRS AGO. [place] ALEXIA EARS- WEARS ALEXIA AIDS - LT EAR WORSE (RECENTLY PATCHED), "prediabetic"-no rx History of Any Multi-Drug Resistant Organisms: None Reported Past Surgical History: Breast Surgery, Ear Surgery, Hysterectomy, Joint Replacement, Orthopedic Surgery, Tubal Ligation Additional Past Surgical History / Comment(s): LEFT EAR SURGERY X3, PATCH DONE, ALEXIA BUNIONECTOMY. LT MASTECTOMY. LT TOTAL KNEE. KIDNEY STONE SURGICALLY REMOVED YRS AGO. alexia cataracts with lens implants Past Anesthesia/Blood Transfusion Reactions: Previous Problems w/ Anesthesia Additional Past Anesthesia/Blood Transfusion Reaction / Comm: HAD HEMORRHAGING W/ INTUBATION FOR EAR SURGERY-SURGERY WAS CANCELLED AT THAT TIME; POSS DIFF INTUBATING. was in ICU for 3 days. pt states her PCP has been unable to get anesthesia record from [facility]. Past Psychological History: Anxiety Smoking Status: Former smoker - Past Family History Father Family Medical History: Cancer Mother Family Medical History: Cancer Mother Brother(s) Family Medical History: Cancer Brother(s) Family Medical History: Cancer Medications and Allergies Home Medications Medication Instructions Recorded Confirmed Type Fluticasone Propionate [Flovent 2 puff INHALATION RT-BID 07/29/20 05/17/21 Histo ry Hfa 44 mcg] Folic Acid 0.8 mg PO DAILY 07/29/20 05/17/21 History Olmesartan/Hydrochlorothiazide 1 tab PO DAILY 07/29/20 05/17/21 History [Olmesartan-Hctz 40-25 mg Tab] Sertraline [Zoloft] 100 mg PO DAILY 07/29/20 05/17/21 History Ammonium Lactate Cream [Lac-Hydrin 1 applic TOPICAL DAILY 05/17/21 05/17/21 History 12% Cream] Multivit-Min/Iron/Folic/Lutein 1 tab PO DAILY 05/17/21 05/17/21 History [Centrum Silver Women Tablet] Omeprazole 20 mg PO DAILY 05/17/21 05/17/21 History Allergies Allergy/AdvReac Type Severity Reaction Status Date / Time Penicillins Allergy Rash/Hives Verified 05/17/21 07:12 Sulfa (Sulfonamide Allergy Rash/Hives Verified 05/17/21 07:12 Antibiotics) Surgical - Exam Vital Signs Temp Pulse Resp BP Pulse Ox 98.0 F 92 16 167/80 97 05/17/21 00:21 05/17/21 00:21 05/17/21 00:21 05/17/21 00:21 05/17/21 00:21 Results - Labs 05/17/21 01:25 05/17/21 01:25 Abnormal Lab Results - Last 24 Hours (Table) 05/17/21 05/17/21 Range/Units 01:25 01:25 WBC 10.8 H (3.8-10.6) k/uL Neutrophils # 8.5 H (1.3-7.7) k/uL Carbon Dioxide 20 L (22-30) mmol/L BUN 28 H (7-17) mg/dL Creatinine 1.22 H (0.52-1.04) mg/dL Glucose 147 H (74-99) mg/dL Lipase 14 L (23-300) U/L Diabetes panel 05/17/21 Range/Units 01:25 Sodium 138 (137-145) mmol/L Potassium 4.1 (3.5-5.1) mmol/L Chloride 106 (98-107) mmol/L Carbon Dioxide 20 L (22-30) mmol/L BUN 28 H (7-17) mg/dL Creatinine 1.22 H (0.52-1.04) mg/dL Glucose 147 H (74-99) mg/dL Calcium 9.8 (8.4-10.2) mg/dL AST 28 (14-36) U/L ALT 19 (4-34) U/L Alkaline Phosphatase 104 (38-126) U/L Total Protein 7.2 (6.3-8.2) g/dL Albumin 4.3 (3.5-5.0) g/dL Calcium panel 05/17/21 Range/Units 01:25 Calcium 9.8 (8.4-10.2) mg/dL Albumin 4.3 (3.5-5.0) g/dL Pituitary panel 05/17/21 Range/Units 01:25 Sodium 138 (137-145) mmol/L Potassium 4.1 (3.5-5.1) mmol/L Chloride 106 (98-107) mmol/L Carbon Dioxide 20 L (22-30) mmol/L BUN 28 H (7-17) mg/dL Creatinine 1.22 H (0.52-1.04) mg/dL Glucose 147 H (74-99) mg/dL Calcium 9.8 (8.4-10.2) mg/dL Adrenal panel 05/17/21 Range/Units 01:25 Sodium 138 (137-145) mmol/L Potassium 4.1 (3.5-5.1) mmol/L Chloride 106 (98-107) mmol/L Carbon Dioxide 20 L (22-30) mmol/L BUN 28 H (7-17) mg/dL Creatinine 1.22 H (0.52-1.04) mg/dL Glucose 147 H (74-99) mg/dL Calcium 9.8 (8.4-10.2) mg/dL Total Bilirubin 0.4 (0.2-1.3) mg/dL AST 28 (14-36) U/L ALT 19 (4-34) U/L Alkaline Phosphatase 104 (38-126) U/L Total Protein 7.2 (6.3-8.2) g/dL Albumin 4.3 (3.5-5.0) g/dL <Calvin Campo - Last Filed: 05/18/21 13:23> History of Present Illness History of present illness: As above. Patient doing well today. She is passing gas. No pain. X-rays noted. Remove nasogastric tube and begin clear liquids. Possible discharge tomorrow. Surgical - Exam Vital Signs Temp Pulse Resp BP Pulse Ox 98.0 F 92 16 167/80 97 05/17/21 00:21 05/17/21 00:21 05/17/21 00:21 05/17/21 00:21 05/17/21 00:21 Results - Labs 05/18/21 04:20 05/18/21 04:20 Abnormal Lab Results - Last 24 Hours (Table) 05/18/21 05/18/21 Range/Units 04:20 04:20 RBC 3.48 L (3.80-5.40) m/uL Hct 33.7 L (34.0-46.0) % Sodium 136 L (137-145) mmol/L BUN 19 H (7-17) mg/dL Diabetes panel 05/18/21 Range/Units 04:20 Sodium 136 L (137-145) mmol/L Potassium 3.6 (3.5-5.1) mmol/L Chloride 107 (98-107) mmol/L Carbon Dioxide 22 (22-30) mmol/L BUN 19 H (7-17) mg/dL Creatinine 1.01 (0.52-1.04) mg/dL Glucose 93 (74-99) mg/dL Calcium 8.6 (8.4-10.2) mg/dL Calcium panel 05/18/21 Range/Units 04:20 Calcium 8.6 (8.4-10.2) mg/dL Pituitary panel 05/18/21 Range/Units 04:20 Sodium 136 L (137-145) mmol/L Potassium 3.6 (3.5-5.1) mmol/L Chloride 107 (98-107) mmol/L Carbon Dioxide 22 (22-30) mmol/L BUN 19 H (7-17) mg/dL Creatinine 1.01 (0.52-1.04) mg/dL Glucose 93 (74-99) mg/dL Calcium 8.6 (8.4-10.2) mg/dL Adrenal panel 05/18/21 Range/Units 04:20 Sodium 136 L (137-145) mmol/L Potassium 3.6 (3.5-5.1) mmol/L Chloride 107 (98-107) mmol/L Carbon Dioxide 22 (22-30) mmol/L BUN 19 H (7-17) mg/dL Creatinine 1.01 (0.52-1.04) mg/dL Glucose 93 (74-99) mg/dL Calcium 8.6 (8.4-10.2) mg/dL
[2021-05-17] MEDS: ACETAMINOPHEN IV (For NPO) 1,000 MG in EMPTY BAG 1 BAG IVPB SCH ×3 (14:19→23:44)
[2021-05-17] MEDS: HEPARIN SODIUM,PORCINE/PF 5,000 UNIT/0.5 ML SYRINGE SQ SCH (20:51)
[2021-05-17] MEDS: FLUTICASONE 44 MCG INHALER INHALATION SCH (21:56)
[2021-05-18 04:31] LABS: HCT 33.7 % (34.0-46.0); HGB 11.6 gm/dL (11.4-16.0); MCH 33.5 pg (25.0-35.0); MCHC 34.5 g/dL (31.0-37.0); MCV 96.9 fL (80.0-100.0); Mean Platelet Volume 7.8; Platelet Count 187 k/uL (150-450); RBC 3.48 m/uL (3.80-5.40); RDW 11.5 % (11.5-15.5); WBC 5.9 k/uL (3.8-10.6)
[2021-05-18 04:40] LABS: Calcium 8.6 mg/dL (8.4-10.2); Potassium 3.6 mmol/L (3.5-5.1)
[2021-05-18] MEDS: SODIUM CHLORIDE 0.9% 1,000 ML IV SCH ×2 (04:59→13:41)
[2021-05-18] MEDS: ACETAMINOPHEN IV (For NPO) 1,000 MG in EMPTY BAG 1 BAG IVPB SCH (05:33)
[2021-05-18] MEDS: FLUTICASONE 44 MCG INHALER INHALATION SCH ×2 (07:56→20:42)
[2021-05-18] MEDS: SERTRALINE 100 MG TAB PO SCH (08:11)
[2021-05-18] MEDS: PANTOPRAZOLE 40 MG/10 ML VIAL IVP SCH (08:20)
[2021-05-18] MEDS: HEPARIN SODIUM,PORCINE/PF 5,000 UNIT/0.5 ML SYRINGE SQ SCH ×2 (08:20→20:41)
--- NOTE | 2021-05-18 10:06 | XR ---
EXAMINATION TYPE: XR abdomen 2V DATE OF EXAM: 05/18/2021 COMPARISON: NONE HISTORY: Pain TECHNIQUE: One view abdominal series FINDINGS: The osseous structures are intact. The bowel gas pattern is nonspecific. NG tube is seen with the ti p near the GE junction. Recommend advancement of the catheter. Postsurgical change in the pelvis with arthropathy of the hips and degenerative change of the spine with scoliosis. Punctate the left sided calcification could represent a small renal stone. Bowel gas pattern nonspecific with no obstruction . IMPRESSION: 1. Bowel gas pattern nonspecific with no obstruction. Air is seen within the rectum. NG tube could be advanced and is seen in the tip at the level of the GE junction.
--- NOTE | 2021-05-18 13:03 | P.PN ---
Subjective Progress Note Date: 05/18/21 CHIEF COMPLAINT: Abdominal pain HISTORY OF PRESENT ILLNESS: Surgical service is following in regards to bar hilario's partial mechanical small bowel obstruction. Patient denies any abdominal pain. She denies any nausea. She is having flatus. Minimal output through NG tube. Afebrile. WBC is 5.9 hgb 11.6 platelets 187 sodium 136 potassium 3.6 creatinine 1.01 abdominal x-ray shows bowel gas pattern nons pecific with no obstruction. Air is seen within the rectum. PHYSICAL EXAM: VITAL SIGNS: Reviewed. GENERAL: Well-developed in no acute distress. HEENT: No sclera icterus. Extraocular movements grossly intact. Moist buccal mucosa. Head is atraumatic, normocephalic. ABDOMEN: Soft. Nondistended. Nontender. NEUROLOGIC: Alert and oriented. Cranial nerves II through XII grossly intact. ASSESSMENT: 1. Partial mechanical small bowel obstruction showing improvement 2. Prior history of bowel obstruction secondary to adhesions status post lysis of adhesions several years ago PLAN: -Discontinue NG tube -Start clear liquid diet -Encourage patient to ambulate -Continue supportive care Physician Manager Msw note has been reviewed by physician. Signing provider agrees with the documented findings, assessment, and plan of care. Objective - Vital Signs Vital signs: Vital Signs Temp 98.9 F 05/18/21 08:00 Pulse 79 05/18/21 08:00 Resp 17 05/18/21 08:00 BP 149/76 05/18/21 08:00 Pulse Ox 95 05/18/21 08:00 Intake & Output 05/17/21 05/18/21 05/18/21 18:59 06:59 18:59 Intake Total 300 Output Total 70 Balance 300 -70 Weight 74.843 kg Intake: Intake, IV Titration 300 Amount Sodium Chloride 0.9% 1, 300 000 ml @ 100 mls/hr IV . Q10H [facility] Rx#:[id number] Output: Gastric Drainage 70 Other: Voiding Method Toilet Toilet # Voids 1 1 - Labs CBC & Chem 7: 05/18/21 04:20 05/18/21 04:20 Labs: Abnormal Lab Results - Last 24 Hours (Table) 05/18/21 05/18/21 Range/Units 04:20 04:20 RBC 3.48 L (3.80-5.40) m/uL Hct 33.7 L (34.0-46.0) % Sodium 136 L (137-145) mmol/L BUN 19 H (7-17) mg/dL
[2021-05-18] MEDS ORDERED: ACETAMINOPHEN TAB 325 MG TAB PO PRN (13:55)
--- NOTE | 2021-05-18 14:00 | P.PN ---
Subjective Progress Note Date: 05/18/21 Patient is a pleasant 85-year-old female came in with complaints of crampy moderate severe lower abdominal pain along with nausea vomiting which she attributes to a lot of Nanci and the she was eating. Patient has bowel movement was yesterday patient is found to have partial small bowel obstruction because of which patient is being admitted with NG tube. Patient is also hyponatremic and does have acute renal failure secondary to nausea vomiting. Patient denied any fever chills. 05/18/2021 Patient evaluated today resting in bed, NGT was in place. She states that her abdomen is much softer than yesterday and she is passing alot of gas but no bowel movement yet. She denies any nausea, vomiting, or diarrhea. She was evaluated today by surgical who recommends discontinuing the NG tube and star ting clear liquid diet. Patient states her last BM was yesterday, and they have been moving "as normal", she denies diarrhea at home. WBC improved today it is now 5.9, sodium 136, Bun 19, creatinine 1.01. Potassium today 3.6. Vital signs: 97.6, heart 62, blood pressure 146/63, 98% room air. ROS Constitutional: Denied any fatigue denied any fever. Cardio vascular: denied any chest pain, palpitations Gastrointestinal denied any nausea vomiting, diarrhea, denies abdominal pain Pulmonary: Denied any shortness of breath cough Neurologic denied any new focal deficits All inpatient medications were reviewed and appropriate changes in these medications as dictated in the interval history and assessment and plan. PHYSICAL EXAMINATION: GENERAL: The patient is alert and oriented x3, not in any acute distress. Well developed, well nourished. HEENT: Pupils are round and equally reacting to light. EOMI. No scleral icterus. No conjunctival pallor. Normocephalic, atraumatic. No pharyngeal erythema. No thyromegaly. NGT in place right nare. CARDIOVASCULAR: S1 and S2 present. No murmurs, rubs, or gallops. PULMONARY: Chest is clear to auscultation, no wheezing or crackles. ABDOMEN: Soft, nontender, nondistended, bowel sounds present no palpable organomegaly. MUSCULOSKELETAL: No joint swelling or deformity. EXTREMITIES: No cyanosis, clubbing, or pedal edema. NEUROLOGICAL: Gross neurological examination did not reveal any focal deficits. SKIN: No rashes. Assessment and plan -Partial small bowel obstruction, s/p decompression with NG Tube -Acute renal failure prerenal azotemia secondary to intravascular depletion from nausea vomiting -Hypertension: Holding off on ESTRELLA inhibitor and a diuretic temporarily for now -Gastroesophageal reflux disease DVT prophylaxis: Subcutaneous heparin Plan Discontinue NG Tube today Start patient on clear liquid diet as recommended by surgical Repeat labs tomorrow. Objective - Vital Signs Vital signs: Vital Signs Temp 98.9 F 05/18/21 08:00 Pulse 79 05/18/21 08:00 Resp 17 05/18/21 08:00 BP 149/76 05/18/21 08:00 Pulse Ox 95 05/18/21 08:00 Intake & Output 05/17/21 05/18/21 05/18/21 18:59 06:59 18:59 Intake Total 300 Output Total 70 Balance 300 -70 Weight 74.843 kg Intake: Intake, IV Titration 300 Amount Sodium Chloride 0.9% 1, 300 000 ml @ 100 mls/hr IV . Q10H [facility] Rx#:[id number] Output: Gastric Drainage 70 Other: Voiding Method Toilet Toilet # Voids 1 1 - Labs CBC & Chem 7: 05/18/21 04:20 05/18/21 04:20 Labs: Abnormal Lab Results - Last 24 Hours (Table) 05/18/21 05/18/21 Range/Units 04:20 04:20 RBC 3.48 L (3.80-5.40) m/uL Hct 33.7 L (34.0-46.0) % Sodium 136 L (137-145) mmol/L BUN 19 H (7-17) mg/dL
[2021-05-19] MEDS: SODIUM CHLORIDE 0.9% 1,000 ML IV SCH ×2 (06:37→13:25)
[2021-05-19] MEDS: FLUTICASONE 44 MCG INHALER INHALATION SCH ×2 (08:29→21:43)
[2021-05-19] MEDS: SERTRALINE 100 MG TAB PO SCH (09:40)
[2021-05-19] MEDS: HEPARIN SODIUM,PORCINE/PF 5,000 UNIT/0.5 ML SYRINGE SQ SCH ×2 (09:40→20:46)
[2021-05-19] MEDS: PANTOPRAZOLE 40 MG/10 ML VIAL IVP SCH (09:40)
--- NOTE | 2021-05-19 11:38 | P.PN ---
<Mago Atkinson - Last Filed: 05/19/21 11:35> Subjective Progress Note Date: 05/19/21 CHIEF COMPLAINT: Abdominal pain HISTORY OF PRESENT ILLNESS: Surgical service is following in regards to patient's partial mechanical small bowel obstruction. Patient denies any abdominal pain. She denies any nausea or vomiting. She is tolerating liquid diet. She is having flatus and bowel movements. She does report some bloating this morning. However, she would like to be discharged. Afebrile. She is having flatus. Minimal output through NG tube. Afebrile. No new labs for today has been up and ambulating. PHYSICAL EXAM: VITAL SIGNS: Reviewed. GENERAL: Well-developed in no acute distress. HEENT: No sclera icterus. Extraocular movements grossly intact. Moist buccal mucosa. Head is atraumatic, normocephalic. ABDOMEN: Soft. Nondistended. Mild tenderness to palpation middle of the abdomen NEUROLOGIC: Alert and oriented. Cranial nerves II through XII grossly intact. ASSESSMENT: 1. Partial mechanical small bowel obstruction showing improvement with conservative management 2. Prior history of bowel obstruction secondary to adhesions status post lysis of adhesions several years ago PLAN: -Advance diet to full liquids -Encourage patient to ambulate -Continue supportive care Physician Telecommunication Equipment Repairer note has been reviewed by physician. Signing provider agrees with the documented findings, assessment, and plan of care. Objective - Vital Signs Vital signs: Vital Signs Temp 97.6 F 05/19/21 08:25 Pulse 74 05/19/21 08:25 Resp 16 05/19/21 08:25 BP 149/73 05/19/21 10:44 Pulse Ox 95 05/19/21 08:25 Intake & Output 05/18/21 05/19/21 05/19/21 18:59 06:59 18:59 Intake Total 800 Output Total 15 Balance -15 800 Intake: Intake, IV Titration 800 Amount Sodium Chloride 0.9% 1, 800 000 ml @ 100 mls/hr IV . [facility]H [facility] Rx#:[id number] Output: Gastric Drainage 15 Other: Voiding Method Toilet # Voids 1 # Bowel Movements 1 - Labs CBC & Chem 7: 05/18/21 04:20 05/18/21 04:20 <Calvin Campo - Last Filed: 05/19/21 11:43> Subjective As above. Patient feels slightly more bloated. No pain. No nausea or vomiting. She has passed some stools. We'll check abdominal x-rays again at this time. If x-rays remain negative advance to full liquids. Objective - Vital Signs Vital signs: Vital Signs Temp 97.6 F 05/19/21 08:25 Pulse 74 05/19/21 08:25 Resp 16 05/19/21 08:25 BP 149/73 05/19/21 10:44 Pulse Ox 95 05/19/21 08:25 Intake & Output 05/18/21 05/19/21 05/19/21 18:59 06:59 18:59 Intake Total 800 Output Total 15 Balance -15 800 Intake: Intake, IV Titration 800 Amount Sodium Chloride 0.9% 1, 800 000 ml @ 100 mls/hr IV . Q10H [facility] Rx#:[id number] Output: Gastric Drainage 15 Other: Voiding Method Toilet # Voids 1 # Bowel Movements 1 - Labs CBC & Chem 7: 05/18/21 04:20 05/18/21 04:20
[2021-05-19] MEDS ORDERED: Potassium Replacement Protocol 1 EACH MISC MISCELLANE PRN (12:01)
[2021-05-19 12:21] LABS: Glucose,Whole Blood 98 mg/dL (75-99)
--- NOTE | 2021-05-19 12:35 | XR ---
EXAMINATION TYPE: XR abdomen 2V DATE OF EXAM: 05/19/2021 COMPARISON: 05/18/2021 HISTORY: Pain TECHNIQUE: One view abdominal series FINDINGS: The osseous structures are intact. The bowel gas pattern is nonspecific. NG tube has been removed. Po stsurgical change in the pelvis with arthropathy of the hips and degenerative change of the spine wit h scoliosis. Punctate the left sided calcification could represent a small renal stone. Bowel gas pat tern nonspecific with no obstruction. Arthropathy of the hips. IMPRESSION: 1. Nonspecific abdomen. Occasional air-fluid levels seen in the mid abdomen. Could be on the basis o f ileus or partial obstruction.
--- NOTE | 2021-05-19 12:41 | P.PN ---
Subjective Progress Note Date: 05/19/21 Patient is a pleasant 85-year-old female came in with complaints of crampy moderate severe lower abdominal pain along with nausea vomiting which she attributes to a lot of Nanci and the she was eating. Patient has bowel movement was yesterday patient is found to have partial small bowel obstruction because of which patient is being admitted with NG tube. Patient is also hyponatremic and does have acute renal failure secondary to nausea vomiting. Patient denied any fever chills. 05/18/2021 Patient evaluated today resting in bed, NGT was in place. She states that her abdomen is much softer than yesterday and she is passing alot of gas but no bowel movement yet. She denies any nausea, vomiting, or diarrhea. She was evaluated today by surgical who recommends discontinuing the NG tube and star ting clear liquid diet. Patient states her last BM was yesterday, and they have been moving "as normal", she denies diarrhea at home. WBC improved today it is now 5.9, sodium 136, Bun 19, creatinine 1.01. Potassium today 3.6. Vital signs: 97.6, heart 62, blood pressure 146/63, 98% room air. 05/19/2021 NG tube was removed yesterday evening, patient had 2 bowel movements one last night and one today. She denies any blood in the stool. Denies any nausea or vomiting. She is having persistent abdominal pain in a bandlike pattern, states it is mild, about a 3 out of 10. She was able to tolerate a clear liquid diet, and she was advanced to full today. Laceration a white count of 5.9, hemoglobin 11.6, sodium 136, potassium 3.6, blood sugar 98. Patient is afebrile, blood pressure 150/65, orthostatics were negative. She was complaining of some dizziness when standing. Encouraged patient to increase her oral intake. Repeat abdomen x-ray shows nonspecific abdomen occasional air-fluid level seen in the midabdomen could be on the basis of ileus or partial obstruction. ROS Constitutional: Denied any fatigue denied any fever. Cardio vascular: denied any chest pain, palpitations Gastrointestinal denied any nausea vomiting, diarrhea, reports BM. Reports abdominal pain Pulmonary: Denied any shortness of breath cough Neurologic denied any new focal deficits All inpatient medications were reviewed and appropriate changes in these medications as dictated in the interval history and assessment and plan. PHYSICAL EXAMINATION: GENERAL: The patient is alert and oriented x3, not in any acute distress. Well developed, well nourished. HEENT: Pupils are round and equally reacting to light. EOMI. No scleral icterus. No conjunctival pallor. Normocephalic, atraumatic. No pharyngeal erythema. No thyromegaly. NGT in place right nare. CARDIOVASCULAR: S1 and S2 present. No murmurs, rubs, or gallops. PULMONARY: Chest is clear to auscultation, no wheezing or crackles. ABDOMEN: Soft, nontender, nondistended, bowel sounds present no palpable organomegaly. MUSCULOSKELETAL: No joint swelling or deformity. EXTREMITIES: No cyanosis, clubbing, or pedal edema. NEUROLOGICAL: Gross neurological examination did not reveal any focal deficits. SKIN: No rashes. Assessment and plan -Partial mechanical small bowel obstruction, s/p decompression with NG Tube -Acute renal failure prerenal azotemia secondary to intravascular depletion from nausea vomiting -Hypertension, meds on hold -Gastroesophageal reflux disease -History of EDENILSON with sleep apnea DVT prophylaxis: Subcutaneous heparin Plan Patient advanced to full liquid Increase oral intake Increase activity level Objective - Vital Signs Vital signs: Vital Signs Temp 97.6 F 05/19/21 08:25 Pulse 74 05/19/21 08:25 Resp 16 05/19/21 08:25 BP 149/73 05/19/21 10:44 Pulse Ox 95 05/19/21 08:25 Intake & Output 05/18/21 05/19/21 05/19/21 18:59 06:59 18:59 Intake Total 800 Output Total 15 Balance -15 800 Intake: Intake, IV Titration 800 Amount Sodium Chloride 0.9% 1, 800 000 ml @ 100 mls/hr IV . Q10H [facility] Rx#:[id number] Output: Gastric Drainage 15 Other: Voiding Method Toilet # Voids 1 # Bowel Movements 1 - Labs CBC & Chem 7: 05/18/21 04:20 05/18/21 04:20 Assessment and Plan Time with Patient: Greater than 30
[2021-05-19] MEDS ORDERED: POTASSIUM CHLORIDE ER 20 MEQ TAB.ER PO SCH (13:00)
[2021-05-20 01:56] VITALS: RESP 16
[2021-05-20] MEDS: SODIUM CHLORIDE 0.9% 1,000 ML IV SCH ×2 (06:53→09:56)
[2021-05-20] MEDS ORDERED: LOSARTAN 50 MG TAB PO SCH (09:00)
[2021-05-20] MEDS: FLUTICASONE 44 MCG INHALER INHALATION SCH (09:16)
[2021-05-20] MEDS: SERTRALINE 100 MG TAB PO SCH (09:40)
[2021-05-20] MEDS: HEPARIN SODIUM,PORCINE/PF 5,000 UNIT/0.5 ML SYRINGE SQ SCH (09:40)
[2021-05-20] MEDS: PANTOPRAZOLE 40 MG/10 ML VIAL IVP SCH (09:40)
[2021-05-20 10:07] LABS: Calcium 9.5 mg/dL (8.4-10.2); Potassium 3.9 mmol/L (3.5-5.1)
--- NOTE | 2021-05-20 10:59 | P.PN ---
Progress Note - Text Progress Note Date: 05/20/21 Patient feels better. She is tolerating her full liquid diet. On exam vital signs are stable. Abdomen soft. Patient will be observed. If she continues She may be discharged home. We will increase her diet as tolerated.
[2021-05-20 15:01] VITALS: BP 145/69; PULSE 85; TEMP 97.8
--- NOTE | 2021-05-21 23:23 | P.PN ---
Subjective Progress Note Date: 05/20/21 Patient is a pleasant 85-year-old female came in with complaints of crampy moderate severe lower abdominal pain along with nausea vomiting which she attributes to a lot of Nanci and the she was eating. Patient has bowel movement was yesterday patient is found to have partial small bowel obstruction because of which patient is being admitted with NG tube. Patient is also hyponatremic and does have acute renal failure secondary to nausea vomiting. Patient denied any fever chills. 05/18/2021 Patient evaluated today resting in bed, NGT was in place. She states that her abdomen is much softer than yesterday and she is passing alot of gas but no bowel movement yet. She denies any nausea, vomiting, or diarrhea. She was evaluated today by surgical who recommends discontinuing the NG tube and star ting clear liquid diet. Patient states her last BM was yesterday, and they have been moving "as normal", she denies diarrhea at home. WBC improved today it is now 5.9, sodium 136, Bun 19, creatinine 1.01. Potassium today 3.6. Vital signs: 97.6, heart 62, blood pressure 146/63, 98% room air. 05/19/2021 NG tube was removed yesterday evening, patient had 2 bowel movements one last night and one today. She denies any blood in the stool. Denies any nausea or vomiting. She is having persistent abdominal pain in a bandlike pattern, states it is mild, about a 3 out of 10. She was able to tolerate a clear liquid diet, and she was advanced to full today. Laceration a white count of 5.9, hemoglobin 11.6, sodium 136, potassium 3.6, blood sugar 98. Patient is afebrile, blood pressure 150/65, orthostatics were negative. She was complaining of some dizziness when standing. Encouraged patient to increase her oral intake. Repeat abdomen x-ray shows nonspecific abdomen occasional air-fluid level seen in the midabdomen could be on the basis of ileus or partial obstruction. 05/20/2021 Patient evaluated today sitting on the bedside. Abdomen is soft, appears less distended than yesterday. She would like to go home, she is having bowel movements. Evaluated by surgical today who advanced diet. Pending how she does she should be able to go today. Vitals, T-97.8, heart rate 85, blood pressure 145/69, 95% on room air. Labs: sodium 139, potassium 3.9, chloride 108, CO2 21, glucose 127. glucose 98. ROS Constitutional: Denied any fatigue denied any fever. Cardio vascular: denied any chest pain, palpitations Gastrointestinal denied any nausea vomiting, diarrhea, reports BM. abdominal ernesto n improving Pulmonary: Denied any shortness of breath cough Neurologic denied any new focal deficits All inpatient medications were reviewed and appropriate changes in these medications as dictated in the interval history and assessment and plan. PHYSICAL EXAMINATION: GENERAL: The patient is alert and oriented x3, not in any acute distress. Well developed, well nourished. HEENT: Pupils are round and equally reacting to light. EOMI. No scleral icterus. No conjunctival pallor. Normocephalic, atraumatic. No pharyngeal erythema. No thyromegaly. NGT in place right nare. CARDIOVASCULAR: S1 and S2 present. No murmurs, rubs, or gallops. PULMONARY: Chest is clear to auscultation, no wheezing or crackles. ABDOMEN: Soft, nontender, nondistended, bowel sounds present no palpable organomegaly. MUSCULOSKELETAL: No joint swelling or deformity. EXTREMITIES: No cyanosis, clubbing, or pedal edema. NEUROLOGICAL: Gross neurological examination did not reveal any focal deficits. SKIN: No rashes. Assessment and plan -Partial mechanical small bowel obstruction, s/p decompression with NG Tube -Acute renal failure prerenal azotemia secondary to intravascular depletion from nausea vomiting, resolved -Hypertension, resume losartan -Gastroesophageal reflux disease -History of EDENILSON with sleep apnea DVT prophylaxis: Subcutaneous heparin Plan Patient advanced to full liquid If she does well she should be able to DC home if cleared by surgical team. Increase oral intake Increase activity level Objective - Vital Signs Vital signs: Vital Signs Temp 97.4 F L 05/20/21 01:54 Pulse 84 05/20/21 01:54 Resp 16 05/20/21 09:00 BP 172/77 05/20/21 01:54 Pulse Ox 94 L 05/20/21 01:54 Intake & Output 05/19/21 05/20/21 05/20/21 18:59 06:59 18:59 Intake Total 210 540 Balance 210 540 Intake: Oral 210 540 Other: Voiding Method Toilet Toilet Toilet # Voids 1 2 # Bowel Movements 0 - Labs CBC & Chem 7: 05/18/21 04:20 05/20/21 09:00 Labs: Abnormal Lab Results - Last 24 Hours (Table) 05/20/21 Range/Units 09:00 Chloride 108 H (98-107) mmol/L Carbon Dioxide 21 L (22-30) mmol/L Glucose 127 H (74-99) mg/dL
--- NOTE | 2021-05-21 23:25 | P.DS ---
Providers Date of admission: 05/17/21 04:22 Attending physician: Margot Doan Consults: 05/17/21 11:17 Consult Physician Routine Consulting Provider: Calvin Campo Reason/Comments: partial SBO Do you want consulting provider notified?: Already Contacted Primary care physician: Maribeth Campo Hospital Course: Patient tolerated diet after it was advanced, she is having bowel movements, abdomen is soft and non-tender. She denies any further complaints, and would like to be discharged home. Cleared by surgery to follow up in the office. Vitals are stable. Please see progress note dated 05/20/2021 for additional information. Patient Condition at Discharge: Good Plan - Discharge Summary Discharge Rx Participant: No New Discharge Prescriptions: New Losartan [Cozaar] 100 mg PO DAILY #30 tab polyethylene glycoL 3350 [Miralax] 17 gm PO DAILY #14 packet Continue Fluticasone Propionate [Flovent Hfa 44 mcg] 2 puff INHALATION RT-BID Folic Acid 0.8 mg PO DAILY Sertraline [Zoloft] 100 mg PO DAILY Omeprazole 20 mg PO DAILY Ammonium Lactate Cream [Lac-Hydrin 12% Cream] 1 applic TOPICAL DAILY Multivit-Min/Iron/Folic/Lutein [Centrum Silver Women Tablet] 1 tab PO DAILY Discontinued Olmesartan/Hydrochlorothiazide [Olmesartan-Hctz 40-25 mg Tab] 1 tab PO DAILY Discharge Medication List Fluticasone Propionate [Flovent Hfa 44 mcg] 2 puff INHALATION RT-BID 07/29/20 [History] Folic Acid 0.8 mg PO DAILY 07/29/20 [History] Sertraline [Zoloft] 100 mg PO DAILY 07/29/20 [History] Ammonium Lactate Cream [Lac-Hydrin 12% Cream] 1 applic TOPICAL DAILY 05/17/21 [History] Multivit-Min/Iron/Folic/Lutein [Centrum Silver Women Tablet] 1 tab PO DAILY 05/17/21 [History] Omeprazole 20 mg PO DAILY 05/17/21 [History] Losartan [Cozaar] 100 mg PO DAILY #30 tab 05/19/21 [Rx] polyethylene glycoL 3350 [Miralax] 17 gm PO DAILY #14 packet 05/20/21 [Rx] Follow up Appointment(s)/Referral(s): Maribeth Campo MD [Primary Care Provider] - 1-2 days Calvin Campo MD [Medical Doctor] - 1 Week Activity/Diet/Wound Care/Special Instructions: Clearance from Dr. Rosenbaum If patient is tolerating diet Discharge Disposition: HOME SELF-CARE
== END 2021-05-20 18:45 | disposition home or self-care (01) | DRG 389 ==
LOC: EC 00:18 → 5NMEDONC 04:22 → 1SOBS 16:24
PROVIDERS: ADMIT Hospitalist; ATTEND Hospitalist
PROC: 0D9670Z Drainage of Stomach with Drainage Device, Via Natural or Artificial Opening (ICD-10-PCS; principal; 2021-05-17)
DX: K56.690 Other partial intestinal obstruction (principal); E87.1 Hypo-osmolality and hyponatremia; N17.9 Acute kidney failure, unspecified; F41.9 Anxiety disorder, unspecified; H91.93 Unspecified hearing loss, bilateral; I10 Essential (primary) hypertension; Z20.822 Contact with and (suspected) exposure to COVID-19; K21.9 Gastro-esophageal reflux disease without esophagitis; Z79.51 Long term (current) use of inhaled steroids; Z90.710 Acquired absence of both cervix and uterus; Z96.1 Presence of intraocular lens; Z90.12 Acquired absence of left breast and nipple; Z87.891 Personal history of nicotine dependence; Z87.442 Personal history of urinary calculi; Z85.43 Personal history of malignant neoplasm of ovary; Z85.3 Personal history of malignant neoplasm of breast; Z79.899 Other long term (current) drug therapy; G43.909 Migraine, unspecified, not intractable, without status migrainosus; G47.33 Obstructive sleep apnea (adult) (pediatric); I83.90 Asymptomatic varicose veins of unspecified lower extremity; J40 Bronchitis, not specified as acute or chronic; L98.9 Disorder of the skin and subcutaneous tissue, unspecified; M19.90 Unspecified osteoarthritis, unspecified site; R79.89 Other specified abnormal findings of blood chemistry
CPT/HCPCS: 36415; 74019; 74176; 80048; 80053; 81003; 83605; 83690; 84484; 85025; 85027; 87635; 93005; 94640; 99285

== ENCOUNTER → 2021-08-09 | Outpatient (CLI) | payer MEDICARE ==
--- NOTE | 2021-08-09 11:59 | SFUN ---
SLEEP CENTER FOLLOW UP NOTE DATE OF SERVICE: 08/09/2021 This 86-year-old lady has been followed in Sleep Center for treatment of obstructive sleep apnea-hypopnea syndrome. The patient continues to use her CPAP equipment but complaints of gargling sounds while using her CPAP. [place] Sleepiness Scale today is 7, which is in normal range. I checked her CPAP unit. Range of the pressure is 5 to 15, average pressure 13 cm of water. Usage is 22/30 nights, average usage 5.5 hours per night. Leak is 36 L/minute, which is borderline. Apnea-hypopnea index is 2.8, which is normal. The position of the machine is on about the same level as the patient's head. Humidity is at the level of 4 in automatic regimen. MEDICATIONS: 1. Olmesartan/hydrochlorothiazide 40/25 mg once a day. 2. Flovent 45 mg t.i.d. 3. Pramipexole 0.25 mg three tablets at bedtime. 4. Multivitamins. 5. Sertraline 100 mg once a day. 6. Turmeric 100 mg. PHYSICAL EXAMINATION: GENERAL: Pleasant patient in no distress. VITAL SIGNS: BP 145/82, HR 90, RR 16, weight 159.4. HEENT: PERRLA, EOMI, evaluation of oropharynx showed tongue protrudes midline. NECK: Supple, no JVD. Thyroid is not palpable. LUNGS: Clear to percussion and to auscultation. Good air exchange. No wheezing or rhonchi. HEART: S1, S2 regular. No murmurs, gallops, or rubs. ABDOMEN: Soft and nontender. Bowel sounds are present. No organomegaly appreciated. EXTREMITIES: No clubbing or cyanosis. FORMSTONE FITTER: Awake, alert, and oriented X3. Cranial nerves 2 to 7 intact. There is no fasciculation or atrophy. noted. No focal deficits observed. IMPRESSION: 1. Moderate, close to severe obstructive sleep apnea-hypopnea syndrome. Original apnea-hypopnea index 26.8. Patient demonstrated borderline compliance with treatment. Normal respiration on CPAP. 2. Severe periodic limb movements. 3. Hypertension. 4. Anxiety. 5. History of chronic obstructive pulmonary disease. 6. Prediabetes. 7. Status post left mastectomy for breast carcinoma. 8. History of ovarian carcinoma, status post total hysterectomy. 9. Status post left knee replacement. 10.Status post left internal ear reconstruction surgery. PLAN: 1. I extensively discussed with the patient prevention of water condensation in the tube. The patient should stay lower than her head, and the position of the tube has to be directly from her mask to the machine. 2. I discussed with the patient adjustments of humidity by changing the temperature in humidifier and regulation of tube temperature. 3. Patient will continue to use PAP equipment every night for the whole night. 4. Sleep hygiene with regular time in bed for at least 7-1/2 to 8 hours. 5. Precautions related to driving. No driving if feeling sleepiness. 6. I will maintain all necessary prescription for PAP supplies including mask, tube, filters. 7. Watching weight. 8. Follow-up visit in 6 months or earlier if patient has any problems. Thank you very much for allowing me to participate in the management of your patient. Sincerely, Chris Woods MD, PhD, FAASM Diplomat of [employer] Sleep Medicine Board of [employer] [facility] [place] MMODL / YESSICAN: [id number] /
== END ==
LOC: SLEEP 09:58
PROVIDERS: ATTEND Internal Medicine
DX: G47.33 Obstructive sleep apnea (adult) (pediatric) (principal); G47.61 Periodic limb movement disorder; I10 Essential (primary) hypertension; F41.9 Anxiety disorder, unspecified; R73.03 Prediabetes; J44.9 Chronic obstructive pulmonary disease, unspecified; Z85.3 Personal history of malignant neoplasm of breast; Z90.12 Acquired absence of left breast and nipple; Z90.711 Acquired absence of uterus with remaining cervical stump; Z96.652 Presence of left artificial knee joint; Z98.890 Other specified postprocedural states; Z85.43 Personal history of malignant neoplasm of ovary; Z99.89 Dependence on other enabling machines and devices; Z88.0 Allergy status to penicillin; Z88.2 Allergy status to sulfonamides; Z87.891 Personal history of nicotine dependence

== ENCOUNTER → 2021-12-07 | Outpatient (CLI) | payer MEDICARE ==
--- NOTE | 2021-12-07 16:53 | P.PN ---
Subjective DATE: 12/07/2021 FOLLOW UP VISIT. Patient with obstructive sleep apnea hypopnea syndrome return to sleep center for follow-up visit. Patient is using PAP equipment every night for the whole night, getting PAP supplies in time. The patient does not have significant problems with the mask, PAP unit and humidification. [place] sleepiness scale is 8 which is in normal range, but patient sometimes has episodes of sleepiness during the day afternoon and may take nap. No sleepiness while driving the car. I checked PAP unit. PAP unit pressure 5-15 average 11.1 cm H2O. Usage is 100 % for more then 4 hours, average 9 hours per night. Leak is 31 l/m, which is in acceptable range. Apnea Hypopnea Index is 1.2, which is normal. MEDICATIONS:1. Olmesartanhydrochlorothiazide 4025 milligrams 2. Flovent 3. Lansoprazole 4. Pramipexole 0.25 mg 3 tablets at bedtime 5. Sertraline 100 mg in the morning 6. Tumeric 100 mg During physical exam: GENERAL: A pleasant patient without any distress. VITAL SIGNS: BP 127/73, HR 75, RR 16 , weight 156.4, temperature 96.9, oxygen saturation at room air 97 . HEENT: PERRLA, EOMI.low position of soft palate . NECK: Supple. No JVD. LUNGS: Clear to percussion and to auscultation. Good air exchange. No wheezing or rhonchi. HEART: S1, S2 regular. ABDOMEN: Soft and nontender.[] EXTREMITIES: No clubbing or cyanosis. FRENCH PASTRY COOK: Awake, alert, and oriented x3. No focal deficit. Impressions: 1. Obstructive sleep apnea-hypopnea syndrome. Patient demonstrated great compliance with treatment, benefiting from treatment. 2. Some sleepiness during the day patient may take naps afternoon. 3. Severe periodic limb movements. 4. Hypertension. 5. Anxiety. 6. History of COPD. 7. History of pre-diabetes. 8. Status post left mastectomy for breast carcinoma.. 9. History of ovarian carcinoma, status post total hysterectomy. 10 status post left knee replacement. 11. Status post left internal ear reconstruction surgery. Plan: 1. Continue using PAP equipment every night for the whole night. 2. To change air filter at least 1-2 times per month. 3. PAP unit should stay lower then position of the head. 4. Advised patient to remove all remaining water from humidifier canister daily and make it dry after each usage. Refill canister with fresh distilled water before each usage. 5. Sleep hygiene with regular time in bed for at least 8 hours. 6. Precautions related to driving. No driving if feel any sleepiness. 7. I will maintain prescription for PAP supplies including mask, tube, filters. 8. Follow up visit in 6 months or earlier if patient has any problems. 9. Watching weight. 10. I discussed with the patient possibility to proceed with multiple sleep latency test for objective evaluation for symptoms of excessive daytime sleepiness, but at the present time we agreed that this possibly not necessarily. Patient takes 1 nap afternoon, no sleepiness while driving the car. Thank you very much for allowing me to participate in the management of your patient. Chris Woods MD, PhD, FAASM. Diplomat of [employer], Sleep Medicine Board by [employer] Surface Grinder [facility] [place]
== END ==
LOC: SLEEP 15:08
PROVIDERS: ATTEND Internal Medicine
DX: G47.33 Obstructive sleep apnea (adult) (pediatric) (principal); I10 Essential (primary) hypertension; F41.9 Anxiety disorder, unspecified; J44.9 Chronic obstructive pulmonary disease, unspecified; Z85.3 Personal history of malignant neoplasm of breast; Z90.12 Acquired absence of left breast and nipple; Z90.710 Acquired absence of both cervix and uterus; Z85.43 Personal history of malignant neoplasm of ovary; Z96.652 Presence of left artificial knee joint; Z98.890 Other specified postprocedural states; Z79.899 Other long term (current) drug therapy; Z88.0 Allergy status to penicillin; Z88.2 Allergy status to sulfonamides; Z87.891 Personal history of nicotine dependence

== ENCOUNTER → 2022-06-14 | Outpatient (CLI) | payer MEDICARE ==
--- NOTE | 2022-06-14 14:12 | P.PN ---
Subjective DATE: 06/14/2022 FOLLOW UP VISIT. Patient with obstructive sleep apnea hypopnea syndrome return to sleep center for follow-up visit. I explained to the patient results of recent sleep study test, which showed that patient has moderate obstructive sleep apnea hypopnea syndrome with apnea-hypopnea index 23.9. Information from previous visit have been reviewed. Patient is using PAP equipment every night for the whole night, getting PAP supplies in time. The patient does not have significant problems with the mask, PAP unit and humid ification. [place] sleepiness scale is increased to 12. I checked information from PAP unit. PAP unit pressure 5-10 cm H2O. Usage is 80 % for more then 4 hours, average 7.5 hours per night. Leak is 30 l/m, which is in acceptable range. Apnea Hypopnea Index is 1.6, which is normal. MEDICATIONS:1. Sertraline 100 mg once a day 2. Flovent 3. Pro Air 4. Lansoprazole 5. Olmesartan/hydrochlorothiazide 40-25 mg once a day During physical exam: GENERAL: A pleasant patient without any distress. VITAL SIGNS: BP 125/75, HR 92, RR 16 , weight 165, temperature 98.0, oxygen saturation at room air 94 % . HEENT: PERRLA, EOMI.low position of soft palate. NECK: Supple. No JVD. LUNGS: Clear to percussion and to auscultation. Good air exchange. No wheezing or rhonchi. HEART: S1, S2 regular. ABDOMEN: Soft and nontender.[] EXTREMITIES: No clubbing or cyanosis. SPEECH LANGUAGE THERAPIST: Awake, alert, and oriented x3. No focal deficit. Impressions: 1. Obstructive sleep apnea-hypopnea syndrome. Patient demonstrated good compliance with treatment, benefiting from treatment. 2. Patient continued to have sleepiness during the day. [place] Sleepiness Scale increased to 12. We discussed possibility to proceed and multiple sleep latency test.. 3. Periodic limb movements. 4. Hypertension. 5. History of COPD. 6. History of anxiety. 7. History of prediabetes. 8. Status post left mastectomy for breast cancer. 9. History of ovarian cancer, status post total hysterectomy. 10. Status post left knee replacement. 11. Status post left internal ear reconstruction surgery. Plan: 1. Continue using PAP equipment every night for the whole night. 2. To change air filter at least 1-2 times per month. 3. PAP unit should stay lower then position of the head. 4. Advised patient to remove all remaining water from humidifier canister daily and make it dry after each usage. Refill canister with fresh distilled water before each usage. 5. Sleep hygiene with regular time in bed for at least 8 hours. 6. Precautions related to driving. No driving if feel any sleepiness. 7. I will maintain prescription for PAP supplies including mask, tube, filters. 8. Follow up visit in 6 months or earlier if patient has any problems. 9. Watching weight. Thank you very much for allowing me to participate in the management of your patient. Chris Woods MD, PhD, FAASM. Diplomat of [place] [employer], Sleep Medicine Board by [place] [employer] Stiff Leg Derrick Operator [facility] [place]
== END ==
LOC: SLEEP 13:08
PROVIDERS: ATTEND Internal Medicine
DX: G47.33 Obstructive sleep apnea (adult) (pediatric) (principal); Z99.89 Dependence on other enabling machines and devices; I10 Essential (primary) hypertension; G47.61 Periodic limb movement disorder; Z98.890 Other specified postprocedural states; Z96.652 Presence of left artificial knee joint; Z90.710 Acquired absence of both cervix and uterus; Z90.12 Acquired absence of left breast and nipple; Z86.39 Personal history of other endocrine, nutritional and metabolic disease; Z86.59 Personal history of other mental and behavioral disorders; Z87.09 Personal history of other diseases of the respiratory system; Z88.0 Allergy status to penicillin; Z88.2 Allergy status to sulfonamides; Z87.891 Personal history of nicotine dependence
CPT/HCPCS: 99212

== ENCOUNTER → 2022-10-16 | Outpatient (CLI) | payer MEDICARE ==
[2022-10-16 15:55] LABS: INR 0.9 (<1.2); Partial Thromboplastin Time 23.8 sec (22.0-30.0); Prothrombin Time 9.8 sec (9.0-12.0)
[2022-10-17 02:30] LABS: Basophils # (A) 0.06 X 10*3/uL (0.00-0.10); Basophils % (A) 0.8 %; Eosinophils # (A) 0.17 X 10*3/uL (0.04-0.35); Eosinophils % (A) 2.3 %; HCT 37.3 % (37.2-46.3); HGB 12.1 g/dL (12.0-15.0); Immature Grans, Automated 0.3 %; Lymphocytes # (A) 1.97 X 10*3/uL (0.90-5.00); Lymphocytes % (A) 26.5 %; MCH 31.8 pg (27.0-32.0); MCHC 32.4 g/dL (32.0-37.0); MCV 98.2 fL (80.0-97.0); Mean Platelet Volume 9.7 fL (9.5-12.2); Monocytes # (A) 0.47 X 10*3/uL (0.20-1.00); Monocytes % (A) 6.3 %; NRBC Per 100 WBC 0 /100 WBCS (0.0-0.0); Neutrophils # (A) 4.73 X 10*3/uL (1.80-7.70); Neutrophils % (A) 63.8 %; Platelet Count 282 X 10*3/uL (140-440); RDW 12.2 % (11.5-14.5); WBC 7.42 X 10*3/uL (4.50-10.00)
[2022-10-17 03:02] LABS: African American GFR (CKD) 49.7 (60.0-200.0); Albumin 4.4 g/dL (3.8-4.9); Albumin/Globulin Ratio 1.82 (1.60-3.17); Anion Gap 15.7 mmol/L (10.00-18.00); BUN/Creat Ratio 22.84 Ratio (12.00-20.00); Blood Urea Nitrogen 26.5 mg/dL (9.0-27.0); Calcium 9.7 mg/dL (8.7-10.3); Carbon Dioxide 23.4 mmol/L (20.0-27.5); Globulin 2.4 g/dL (1.6-3.3); Non-African American GFR(CKD) 42.9 (60.0-200.0); Potassium 3.8 mmol/L (3.5-5.5); Total Bilirubin 0.2 mg/dL (0.30-1.20); Total Protein 6.8 g/dL (6.2-8.2)
[2022-10-17 05:07] LABS: Appearance,Urine Clear (Clear); Bilirubin,Urine Negative (Negative); Blood,Urine Negative (Negative); Color,Urine Yellow (Yellow); Ketones,Urine Trace mg/dL (Negative); Nitrite,Urine Negative (Negative); Specific Gravity,Urine 1.027 (1.001-1.030); Urobilinogen,Urine 0.2 (0.2,1.0)
[2022-10-17 05:16] LABS: Bacteria,Urine None Seen /HPF (None Seen)
== END | disposition home or self-care (01) ==
LOC: LABPAT 14:13
PROVIDERS: ATTEND Orthopaedic Surgery Sports Medicine
DX: Z01.812 Encounter for preprocedural laboratory examination (principal); M17.11 Unilateral primary osteoarthritis, right knee
CPT/HCPCS: 80053; 81001; 85025; 85610; 85730; 87070

== ENCOUNTER 2022-11-01 07:17 | Day surgery (SDC) | payer MEDICARE ==
[~2022-11-01 07:17] MED LIST changes: +ACETAMINOPHEN TAB 500 MG TAB PO PRN; +GABAPENTIN 300 MG CAP PO PRN; +MELOXICAM 7.5 MG TAB PO PRN; +ONDANSETRON 4 MG/2 ML VIAL IVP ONE; +ONDANSETRON 4 MG/2 ML VIAL IVP PRN; -Pre Op ABX Message 1 EACH MISC MISCELLANE ONE; +TRANEXAMIC ACID IN NACL,ISO-OS 1,000 MG in SALINE 1 100ML.BAG IVPB PRN; +fentaNYL (PF) 50 MCG/ML 2 ML AMP IV PRN
[2022-11-01] MEDS: LACTATED RINGERS 1,000 ML IV SCH ×3 (08:00→20:50)
[2022-11-01] MEDS ORDERED: DEXAMETHASONE SOD PHOSPHATE 4 MG/ML 1 ML VIAL IVP ONE (08:14)
[2022-11-01] MEDS ORDERED: MIDAZOLAM 2 MG/2 ML VIAL IVP ONE (08:30)
[2022-11-01] MEDS ORDERED: NA PHOS,M-B/NA PHOS,DI-BA 133 ML ENEMA RECTAL PRN (09:09)
[2022-11-01] MEDS ORDERED: NALOXONE 0.4 MG/ML 1 ML VIAL IV PRN (09:09)
[2022-11-01] MEDS ORDERED: traMADol 50 MG TAB PO PRN (09:09)
[2022-11-01] MEDS ORDERED: MAGNESIUM HYDROXIDE 2,400 MG/10 ML CUP PO PRN (09:09)
[2022-11-01] MEDS ORDERED: HYDROmorphone 0.5 MG/0.5 ML SYRINGE IVP PRN ×3 (09:09)
[2022-11-01] MEDS ORDERED: ACETAMINOPHEN TAB 325 MG TAB PO PRN (09:09)
[2022-11-01] MEDS ORDERED: ONDANSETRON 4 MG/2 ML VIAL IVP PRN (09:09)
[2022-11-01] MEDS ORDERED: bisacodyL 10 MG SUPP RECTAL PRN (09:09)
[2022-11-01] MEDS ORDERED: MIDAZOLAM 2 MG/2 ML VIAL ONE (09:31)
[2022-11-01] MEDS ORDERED: PROPOFOL 10 MG/ML 20 ML VIAL IV ONE (09:31)
[2022-11-01] MEDS ORDERED: TRANEXAMIC ACID IN NACL,ISO-OS 1,000 MG/100 ML BAG ONE (09:31)
[2022-11-01] MEDS ORDERED: LACTATED RINGERS 1,000 ML IV ONE (11:11)
[2022-11-01] MEDS ORDERED: ROPIVACAINE 1,100 MG, SODIUM CHLORIDE 0.9% 500 ML 330 ML, EMPTY PAIN BALL 1 EACH MISCELLANE PRN ×2 (11:42)
--- NOTE | 2022-11-01 12:02 | XR ---
EXAMINATION TYPE: XR knee limited RT DATE OF EXAM: 11/01/2022 COMPARISON: NONE HISTORY: 87-year-old female evaluation for postoperative abnormality in alignment TECHNIQUE: 2 views FINDINGS: Images show placement of right total knee arthroplasty. Both distal femoral and proximal tibial compo nents of the prosthesis are well seated without periprosthetic fracture. Alignment grossly anatomic. Anterior soft tissue swelling with scattered soft tissue air related to recent operation. IMPRESSION: Uncomplicated postoperative appearance right total knee arthroplasty.
--- NOTE | 2022-11-01 13:17 | OP ---
OPERATIVE REPORT DATE OF SERVICE : 11/01/2022 SEED EXPERT: Lawson Barakat PA-C PREOPERATIVE DIAGNOSIS: Right knee osteoarthrosis. POSTOPERATIVE DIAGNOSIS: Right knee osteoarthrosis. PROCEDURES PERFORMED: Right total knee arthroplasty. ANESTHESIA: Spinal with sedation. ESTIMATED BLOOD LOSS: 100 mL. TOURNIQUET TIME: 44 minutes at 250 mmHg. COMPLICATIONS: None apparent. DRAINS: None. DISPOSITION: Postanesthesia care unit. INDICATIONS FOR PROCEDURE: Marilee is a very pleasant 87-year-old female with longstanding history of right knee pain. History and physical examination are consistent with advanced right knee osteoarthrosis. She has been through significant operative management up to this point. Further treatment options were discussed, and she has decided to go forward with a right total knee arthroplasty. Risks of procedure were discussed with her in detail. These risks include but are not limited to risk of infection, nerve damage, bleeding, pain, and a small risk of deep vein thrombosis which could lead to fatal pulmonary embolism. There is also small risk of loosening of the implant which could require revision operation. The patient understands these risks. All of her questions were answered to her satisfaction. An appropriate informed consent was obtained. DESCRIPTION OF PROCEDURE: The patient was identified in preoperative holding area. Surgical site was marked by both the patient and myself. She was given 2 g of Ancef IV for prophylactic purposes. She was then transported to the operative suite. She was placed supine on the operating room table. Spinal anesthetic was then administered, dosed per the Anesthesia without apparent complication. Examination under anesthesia performed. She was 2 to 3 degrees shy of full extension. She had 100 degrees of flexion. Medial collateral ligament, lateral collateral ligament and posterior cruciate ligaments were stable. Tourniquet was then placed high on the right upper thigh well-padded in preparation for surgery. The patient's right lower extremity was then prepped and draped in usual sterile fashion. Standard surgical pause was undertaken to ensure that we were operating the correct site and that appropriate preoperative antibiotics were given. All staff in the room were in agreement, and we proceeded. The outlines of the patella were then marked with a surgical pen. A planned 12 cm vertical incision centered over the patella was marked with a surgical pen. Upper leg was then exsanguinated with an Esmarch dressing. The knee was then flexed, and the tourniquet was inflated to 250 mmHg. The total tourniquet time for the procedure was 44 minutes. Incision was then made with a 10-blade scalpel. This dissection was carried down sharply overlying fascia. Great care was taken to minimize the skin flaps. The knee was then exposed using a standard medial parapatellar approach. A small cuff of quadriceps tendon was then left for suturing. She was in a bit of varus preoperatively. A standard medial release was then made. Superficial medial collateral ligament dissected off the bone around to the posterior aspect of the proximal tibia. The medial meniscus was then excised as well. The lateral meniscus was also released anteriorly. The leg was then externally rotated. The patella was everted. The knee was flexed. Retractors were then placed to protect the collateral ligaments. I then proceeded to remove the infrapatellar fat pad. This was excised sharply tangentially with fibers of the patellar tendon. I then proceeded to remove the peripheral osteophytes. This was done with a rongeur. I then proceeded with the distal resection. She did have near full extension. A planned 9 mm resection was then done. The femoral canal was then entered in midline of the femur approximately 10 mm anterior to the origin of the posterior cruciate ligament. The katelyn was then advanced down the center of the femur and placed intramedullary. Based on the preoperative radiographs, the angle between the anatomic and mechanical axis of the femur was approximately 4 to 5 degrees. The valgus angle of the distal femoral cutting guide was then set at 4 degrees for the right knee. The distal femoral cutting guide was then advanced over the intramedullary katelyn. This was seated firmly against the femur. I then as mentioned, planned to take 9 mm off the distal femur. The cutting block was then secured onto the femur with pins. The jig was then removed. The distal femoral cut was made through the slot of the block. The pins were removed. The distal femoral cutting block was removed. The accuracy of the distal femoral cuts was checked with 2 flat bars. I then proceeded with femoral sizing. Posterior referencing sizing guide was held firmly against the resected distal surface of the femur. The posterior condyles were resting on the posterior plane of the guide. The sizing stylus was then placed on the anterior femur. The size was measured as a size 7. I then assessed for femoral rotation. Planned for 3 degrees of external rotation. A 3 degrees of external rotation was placed onto the jig. These holes were then marked and then confirmed with the rotation by 3 separate methods. This was done using epicondylar axis as well as Whitesides line and posterior referencing. It was deemed that the external rotation was proper. I therefore placed the femoral cutting block. This was placed over the previously placed pin holes. The Javier wing was then placed on the anterior slots to ensure that we would not notch the anterior femur with the anterior femoral cut. I then proceeded with the anterior femoral cut. This was flushed with the anterior cortex of the femur. The posterior cuts were then made followed by the anterior chamfer cut, then the posterior chamfer cut. The cutting block was then removed. Throughout the resection, the collateral ligaments were protected with retractors. I then placed a trial size 7 femur. It was slightly wide but the narrow fit very nicely, and it fit flush with the distal end of the femur. The drill hole was then made. I then proceeded with the tibial cut. We planned for cruciate-retaining knee. The guide was placed and set for varus, valgus and for slope. The height was set for approximately 2 mm resection from the medial tibial plateau which was the lower side. I was happy with alignment and the amount of resection. The cutting block was then pinned to the proximal tibia. The alignment katelyn was removed and the proximal tibia was resected with a reciprocating saw. Again, this was done with retractors protecting the collateral ligaments as well as the posterior cruciate ligament. I then proceeded to evaluate the flexion extension gaps. A 10 mm block was then placed. The flexion extension gaps were equal. I then proceeded with resection of posterior osteophytes. She had very minimal posterior osteophytes. This was done using a curved osteotome. This resected the posterior osteophytes, and posterior capsular stripping was done off the posterior aspect of the femur at this time. The osteophytes were then removed. I then proceeded with resection of the patella. The thickness of patella was measured using the caliper. The thickness was 22 mm. The thickness of the anticipated patellar dome was taken into account. Resection was then performed and confirmed to be equal in 4 quadrants using a caliper. Approximately 14 mm of bone remained after resection. A 29 x 8 mm standard patellar trial was then placed. The holes drilled. The trial was then placed. I then proceeded with sizing the tibial plate. A size C tibial plate fit very nicely. I then placed the trial femur, the tibial tray, and the patellar button. A 10 mm trial tibial insert was also placed. The components fit very nicely. She had full extension and flexion. The extension and flexion gaps were equal and stable to both varus and valgus stress. The patella tracked appropriately. The tibial tray rotation was then marked with a Bovie. This was externally rotated properly. I then proceeded with tibial preparation. I first drilled the femoral holes and removed the femoral component. The tibial tray was then set for proper external rotation as well as medial and lateral placement onto the tibia. It was then pinned into place. I then proceeded with punching the keel. I then decided to proceed with cementing of all our components. The knee was thoroughly irrigated with sterile saline solution via pulse lavage. The lateral genicular artery was identified and cauterized. All blood was removed from the bone of the tibia, femur, and patella with pulsed lavage. I then proceeded with cementing. Two packs of antibiotic bone cement prepared on the back table by the surgical orderly. I then proceeded with cementing the tibia first. The cement was impacted into the keel as well as deeply seated into the bone. A second coat of cement was then placed. The tibia was then impacted into place. Excess cement was removed with Mccloud's and Joker's. I then proceeded with cementing of the femoral component. The femoral component was also cemented using standard technique. Excess cement was removed. A 10 mm trial insert was then placed in the knee. It was brought into full extension with a constant axial load placed until the cement had hardened. The patellar component was then cemented. This was held firmly with a compressive device until the cement had dried. When the cement had dried, the knee was taken out of extension. All excess cement was removed from around the prosthesis. I then trialed the knee with a 10 mm insert. Flexion and extension gaps were appropriate. The knee was stable. It came into full extension. I decided to go forward with a 10 mm Medial Congruent cross-linked cruciate- retaining tibial insert. Polyethylene was then placed onto the tibial tray and locked into place. The knee was then reduced. The knee was again further irrigated with sterile saline solution with antibiotic added. The tourniquet was then deflated. Total tourniquet time for the procedure was 44 minutes at 250 mmHg. Final components were Rey Persona size 7 narrow cruciate-retaining femoral component, size C tibial tray, a 10 mm Medial Congruent cruciate-retaining polyethylene insert, and a 29 x 8 mm patella. I then proceeded with closure. Again, the knee was thoroughly irrigated. The quadriceps tendon and medial retinaculum were reapproximated with #2 Ethibond suture. The extensor mechanism was then closed with a running #2 Quill suture. Subcutaneous tissues were closed with 2-0 Vicryl interrupted suture. The skin was closed with a running 3-0 Quill suture. Dermabond was applied to the incision. Sterile compressive dressing was then applied. All sponge and needle counts were deemed correct prior to closure. The patient tolerated the procedure without apparent complication. She was transferred to the recovery room in stable condition. MMODL / IJN: [id number] /
[2022-11-01] MEDS: HYDROcodone/APAP 5-325MG 1 EACH TAB PO PRN (14:34)
--- NOTE | 2022-11-01 17:25 | P.ANPRN ---
Procedure Note - Anesthesia - Nerve Block Performed Right Adductor Canal Infusion Time Out Performed: Yes Date of Procedure: 11/01/22 Procedure Start Time: :30 Procedure Stop Time: :40 Location of Patient: PreOp Indication: Acute Post-Operative Pain, Requested by Surgeon Sedation Type: Sedate with meaningful contact maintained Preparation: Sterile Prep, Sterile Dressing Position: Supine Catheter: Indwelling Needle Types: On-Q Needle Gauge: 21 Ultrasound used to visualize needle placement: Yes Ultrasound used to observe medication spread: Yes Blood Aspirated: No Pain Paresthesia on Injection Noted: No Resistance on Injection: Normal Image Stored and Saved: Yes Events: Uneventful and Well Tolerated (Ropivacaine 0.5% 20 mL plus dexamethasone 4 mg)
--- NOTE | 2022-11-01 17:27 | P.ANPRN ---
Procedure Note - Anesthesia - Nerve Block Performed Right Urbanck Single Time Out Performed: Yes Date of Procedure: 11/01/22 Procedure Start Time: 08:41 Procedure Stop Time: :44 Location of Patient: PreOp Indication: Acute Post-Operative Pain Sedation Type: Sedate with meaningful contact maintained Preparation: Sterile Prep Position: Supine Needle Types: Pajunk Needle Gauge: 21 Ultrasound used to visualize needle placement: Yes Ultrasound used to observe medication spread: Yes Blood Aspirated: No Pain Paresthesia on Injection Noted: No Resistance on Injection: Normal Image Stored and Saved: Yes Events: Uneventful and Well Tolerated (Ropivacaine 0.5% 20 mL plus dexamethasone 4 mg)
[2022-11-01] MEDS ORDERED: SENNOSIDES-DOCUSATE SODIUM 1 EACH TAB PO SCH (21:00)
[2022-11-01] MEDS: HYDROcodone/APAP 10-325MG 1 EACH TAB PO PRN (21:05)
[2022-11-01] MEDS: ASPIRIN 81 MG PO SCH (21:05)
--- NOTE | 2022-11-02 00:32 | P.CONS ---
History of Present Illness - Reason for Consult Consult date: 11/01/22 Medical management - Chief Complaint Right total knee arthroplasty - History of Present Illness Patient is a 87-year-old female with a known history of hypertension, osteoarthritis, history of left breast cancer status postmastectomy, ovarian cancer with total hysterectomy/chemotherapy, GERD, anxiety/depression prior history of smoking and other medical problems was admitted to the hospital for elective right total knee arthroplasty. Patient tolerated the procedure very well. Currently pain is controlled with nerve block. Patient otherwise denies any complaints of chest pain or shortness of breath. No nausea vomiting abdominal pain or diarrhea. No cough or sputum production. Postoperatively blood pressure was 154/63. Review of Systems Constitutional: Patient denies any fever or chills . no Generalized weakness. Abdomen: Patient denied any nausea or vomiting or abd. pain Cardiovascular: Patient denies any chest pain or short of breath no pa lpitations. Respiratory: patient denied any cough . no sputum production. No shortness of breath Neurologic: Patient denied any numbness or tingling headache. Musculoskeletal: Patient denies any complaints of joint swelling or deformity. Right knee pain. Skin: Negative Psychiatric: Negative Endocrine: No heat or cold intolerance. No recent weight gain. Genitourinary: No dysuria or hematuria. All other 14 point ROS negative except the above Past Medical History Past Medical History: Cancer, GERD/Reflux, Hearing Disorder / Deafness, Hyperten katarzyna, Osteoarthritis (OA), Respiratory Disorder, Skin Disorder Additional Past Medical History / Comment(s): L breast cancer with mastectomy, ovarian cancer with total hysterectomy/chemotherapy, skin cancer with removals, bowel obstructions, bronchitis, kidney stones, EDENILSON ,UTI, aura migraines, varicosities. History of Any Multi-Drug Resistant Organisms: None Reported Past Surgical History: Breast Surgery, Ear Surgery, Hysterectomy, Joint Replacement, Orthopedic Surgery, Tonsillectomy, Tubal Ligation Additional Past Surgical History / Comment(s): Abdominal surgery/adhesions removed, skin cancer removals, L mastectomy, total hysterectomy, surgery for kidney stones, total L knee arthroplasty, bilateral feet bunionectomies, colonoscopies, several L ear surgeries/myringtotomies/tubes/patch, R ear myringotomy/tube,lazy eye repair as child, Right knee 11/01/2022. Past Anesthesia/Blood Transfusion Reactions: No Reported Reaction, Previous Problems w/ Anesthesia Additional Past Anesthesia/Blood Transfusion Reaction / Comm: HAD HEMORRHAGING IN THROAT W/ INTUBATION FOR EAR SURGERY-SURGERY WAS CANCELLED AT THAT TIME; POSS DIFF INTUBATING. was in ICU for 3 days. pt states her PCP has been unable to get anesthesia record from [facility]. Past Psychological History: Anxiety, Depression Additional Psychological History / Comment(s): Pt resides alone. She is independent. Smoking Status: Former smoker Past Alcohol Use History: None Reported Additional Past Alcohol Use History / Comment(s): Pt started smoking in 1961 and quit in 1991. She quit drinking alcohol in Past Drug Use History: None Reported - Past Family History Father Family Medical History: Cancer Mother Family Medical History: Cancer Additional Family Medical History / Comment(s): Mother had lung cancer. Mother Brother(s) Family Medical History: Cancer Brother(s) Family Medical History: Cancer Medications and Allergies Home Medications Medication Instructions Recorded Confirmed Type Fluticasone Propionate [Flovent 2 puff INHALATION RT-BID 07/29/20 10/26/22 History Hfa 44 mcg] Folic Acid 0.8 mg PO DAILY 07/29/20 10/26/22 History Sertraline [Zoloft] 100 mg PO DAILY 07/29/20 10/26/22 History Multivit-Min/Iron/Folic/Lutein 1 tab PO DAILY 05/17/21 10/26/22 History [Centrum Silver Women Tablet] Omeprazole 20 mg PO DAILY 05/17/21 10/26/22 History Losartan [Cozaar] 100 mg PO DAILY #30 tab 05/19/21 10/26/22 Rx Aspirin [Adult Low Dose Aspirin EC] 81 mg PO BID #60 tab 11/01/22 Rx Docusate [Colace] 100 mg PO BID #60 capsule 11/01/22 Rx Ondansetron [Zofran] 4 mg PO Q8HR PRN #21 tab 11/01/22 Rx Allergies Allergy/AdvReac Type Severity Reaction Status Date / Time Penicillins Allergy Rash/Hives Verified 11/01/22 07:42 Sulfa (Sulfonamide Allergy Rash/Hives Verified 11/01/22 07:42 Antibiotics) Physical Exam Vitals: Vital Signs Temp Pulse Resp BP Pulse Ox 11/01/22 13:38 97.4 F L 73 18 137/54 97 11/01/22 12:30 76 16 149/67 98 11/01/22 12:15 56 L 16 153/67 99 11/01/22 12:00 60 16 154/63 92 L 11/01/22 11:45 56 L 16 138/85 95 11/01/22 11:30 58 L 16 136/61 96 11/01/22 11:25 97.6 F 74 16 125/56 94 L 11/01/22 08:50 68 16 129/60 97 11/01/22 07:56 98 F 80 16 154/84 96 Intake and Output 11/01/22 11/01/22 11/01/22 06:59 14:59 22:59 Intake Total 550 118 Output Total 100 Balance 450 118 Intake: IV 550 Oral 118 Output: Estimated Blood Loss 100 Other: # Voids 1 Weight 71.8 kg PHYSICAL EXAMINATION: Patient is lying in the bed comfortably, no acute distress, awake alert and oriented.. HEENT: Normocephalic. Neck is supple. Pupils reactive. Nostrils clear. Oral cavity is moist. Neck reveals no JVD, carotid bruits, or thyromegaly. CHEST EXAMINATION: Trachea is central. Symmetrical expansion. Lung gonzales clear to auscultation and percussion. CARDIAC: Normal S1, S2 with no gallops. No murmurs ABDOMEN: Soft. Bowel sounds present. Nontender. No organomegaly. No abdominal bruits. Extremities: reveal no edema. No clubbing or cyanosis Neurologically awake, alert, oriented x3 with well-coordinated movements. No focal deficits noted Skin: No rash or skin lesions. Psychiatric: Coperative. Nonsuicidal, Musculoskeletal: No joint swelling or deformity. Right knee surgical site is bandaged. Pain pump with nerve block is in place. Decreased range of motion. Assessment and Plan Assessment: Status post right total knee arthroplasty. Postoperative day 0 Hypertension fairly controlled GERD Hearing disorder/deafness History of breast cancer status postmastectomy History of ovarian cancer status post total hysterectomy/chemotherapy Obstructive sleep apnea not on CPAP Anxiety/depression Prior history of smoking DVT prophylaxis as per primary team. Plan: Patient will be continued on home blood pressure medications losartan and continue with Protonix and Zoloft. Follow-up CBC and BMP tomorrow. Continue with GI and DVT prophylaxis and encourage incentive spirometry and ambulation. Further recommendations based on the clinical course. Thank you for your consult.
[2022-11-02] MEDS: LACTATED RINGERS 1,000 ML IV SCH ×2 (05:19→05:21)
[2022-11-02] MEDS: HYDROcodone/APAP 5-325MG 1 EACH TAB PO PRN (06:46)
[2022-11-02] MEDS ORDERED: FLUTICASONE 44 MCG INHALER INHALATION SCH (08:00)
[2022-11-02 08:39] VITALS: RESP 16
[2022-11-02] MEDS: ASPIRIN 81 MG PO SCH (08:49)
[2022-11-02] MEDS ORDERED: LOSARTAN 50 MG TAB PO SCH (09:00)
[2022-11-02] MEDS ORDERED: SERTRALINE 100 MG TAB PO SCH (09:00)
[2022-11-02] MEDS ORDERED: FOLIC ACID 1 MG TAB PO SCH (09:00)
[2022-11-02] MEDS ORDERED: MULTIVITAMINS, THERA 1 EACH TAB PO SCH ×2 (09:00→12:00)
[2022-11-02] MEDS ORDERED: PANTOPRAZOLE 40 MG TABLET PO SCH (09:00)
--- NOTE | 2022-11-02 11:07 | P.PN ---
Progress Note - Text 11/02/22 629am 87-year-old female status post total knee replacement by Dr. Wu. Patient has an On-Q pump for postop pain control with the solution running at 8 mL an hour with a VAS of 7. The pain is predominantly located posteriorly she has no pain on the anterior aspect of the knee. Plan to continue On-Q pump infusion
[2022-11-02] MEDS: HYDROcodone/APAP 10-325MG 1 EACH TAB PO PRN (12:05)
[2022-11-02 12:11] LABS: Basophils % (A) 0 %; Eosinophils % (A) 0 %; HCT 28.9 % (34.0-46.0); HGB 9.9 gm/dL (11.4-16.0); Lymphocytes # (A) 1.5 k/uL (1.0-4.8); Lymphocytes % (A) 17 %; MCH 33.1 pg (25.0-35.0); MCHC 34.4 g/dL (31.0-37.0); MCV 96.3 fL (80.0-100.0); Mean Platelet Volume 7.9; Monocytes # (A) 0.6 k/uL (0-1.0); Monocytes % (A) 6 %; Neutrophils # (A) 6.9 k/uL (1.3-7.7); Neutrophils % (A) 75 %; Platelet Count 208 k/uL (150-450); RDW 11.9 % (11.5-15.5); WBC 9.2 k/uL (3.8-10.6)
[2022-11-02 12:17] LABS: African American GFR (CKD) 41 (>60 ml/min/1.73 sqM); Anion Gap 10 mmol/L; Blood Urea Nitrogen 23 mg/dL (7-17); Calcium 8.2 mg/dL (8.4-10.2); Carbon Dioxide 23 mmol/L (22-30); Chloride 104 mmol/L (98-107); Glucose 134 mg/dL (74-99); Non-African American GFR(CKD) 36 (>60 ml/min/1.73 sqM); Potassium 3.4 mmol/L (3.5-5.1); Sodium 137 mmol/L (137-145)
[2022-11-02 13:45] VITALS: BP 173/68; PULSE 83; TEMP 97.9
== END 2022-11-02 14:44 | disposition home health service (06) ==
LOC: OR 07:17 → 4SSUR 12:43 → OR 11-02 14:44
PROVIDERS: ATTEND Orthopaedic Surgery Sports Medicine
DX: M17.11 Unilateral primary osteoarthritis, right knee (principal); G89.18 Other acute postprocedural pain; J44.9 Chronic obstructive pulmonary disease, unspecified; F32.A Depression, unspecified; Z79.1 Long term (current) use of non-steroidal anti-inflammatories (NSAID); Z85.3 Personal history of malignant neoplasm of breast; Z85.828 Personal history of other malignant neoplasm of skin; Z96.652 Presence of left artificial knee joint; Z79.899 Other long term (current) drug therapy; Z87.891 Personal history of nicotine dependence
CPT/HCPCS: 27447; 64448; 64999; 94640; 97162; 88305; 80048; 85025; 88311; 73560; J2250; J1100; J0690 ×2; J2405; J2795

== ENCOUNTER 2023-06-10 20:40 | Emergency (ER) | payer MEDICARE ==
[2023-06-10 21:19] VITALS: TEMP 98.7
[2023-06-10] MEDS ORDERED: ONDANSETRON 4 MG/2 ML VIAL IVP STA (21:20)
[2023-06-10] MEDS ORDERED: SODIUM CHLORIDE 0.9% 1,000 ML IV STA (21:20)
--- NOTE | 2023-06-10 21:26 | ED ---
Nausea/Vomiting/Diarrhea HPI - General Chief complaint: Nausea/Vomiting/Diarrhea Stated complaint: V/N/D Time Seen by Provider: 06/10/23 20:58 Source: patient, RN notes reviewed Mode of arrival: EMS Limitations: no limitations - History of Present Illness Initial comments: This is an 87-year-old female who presents to the emergency department for nausea, vomiting, and diarrhea. States that she was at a [employer] today when she had quiche and pudding. States that these tasted fine. To her knowledge nobody else at the [employer] was sick. Around 3 PM after she got home, she has had constant nausea, vomiting, and diarrhea. States that she has vomited 11-12 times. The diarrhea is described as watery. Denies any associated abdominal pain. Unsure if she has been on any antibiotics recently. Denies any fevers or chills. MD complaint: nausea, vomiting, diarrhea - Related Data Home Medications Medication Instructions Recorded Confirmed Fluticasone Propionate [Flovent 2 puff INHALATION RT-BID 07/29/20 10/26/22 Hfa 44 mcg] Folic Acid 0.8 mg PO DAILY 07/29/20 10/26/22 Sertraline [Zoloft] 100 mg PO DAILY 07/29/20 10/26/22 Multivit-Min/Iron/Folic/Lutein 1 tab PO DAILY 05/17/21 10/26/22 [Centrum Silver Women Tablet] Omeprazole 20 mg PO DAILY 05/17/21 10/26/22 Previous Rx's Medication Instructions Recorded Losartan [Cozaar] 100 mg PO DAILY #30 tab 05/19/21 Aspirin [Adult Low Dose Aspirin EC] 81 mg PO BID #60 tab 11/01/22 Docusate [Colace] 100 mg PO BID #60 capsule 11/01/22 Ondansetron [Zofran] 4 mg PO Q8HR PRN #21 tab 11/01/22 HYDROcodone/APAP 7.5-325MG [Mccormick 1 - 2 each PO Q6HR PRN #56 tab 11/02/22 7.5-325] Ondansetron Odt [Zofran Odt] 4 mg PO Q8HR PRN #20 tab 06/10/23 Allergies Allergy/AdvReac Type Severity Reaction Status Date / Time Penicillins Allergy Rash/Hives Verified 06/10/23 20:56 Sulfa (Sulfonamide Allergy Rash/Hives Verified 06/10/23 20:56 Antibiotics) Review of Systems ROS Statement: Those systems with pertinent positive or pertinent negative responses have been documented in the HPI. ROS Other: All systems not noted in ROS Statement are negative. Past Medical History Past Medical History: Hypertension Additional Past Medical History / Comment(s): L breast cancer with mastectomy, ovarian cancer with total hysterectomy/chemotherapy, skin cancer with removals, bowel obstructions, bronchitis, kidney stones, EDENILSON with Cpap, UTI, aura migraines, varicosities. History of Any Multi-Drug Resistant Organisms: None Reported Past Surgical History: Breast Surgery, Ear Surgery, Hysterectomy, Joint Replacement, Orthopedic Surgery, Tonsillectomy, Tubal Ligation Additional Past Surgical History / Comment(s): Abdominal surgery/adhesions removed, skin cancer removals, L mastectomy, total hysterectomy, surgery for kidney stones, total L knee arthroplasty, bilateral feet bunionectomies, colonoscopies, several L ear surgeries/myringtotomies/tubes/patch, R ear myringotomy/tube,lazy eye repair as child, Right knee 11/01/2022. Past Anesthesia/Blood Transfusion Reactions: No Reported Reaction, Previous Pro blems w/ Anesthesia Additional Past Anesthesia/Blood Transfusion Reaction / Comment(s): HAD HEMORRHAGING IN THROAT W/ INTUBATION FOR EAR SURGERY-SURGERY WAS CANCELLED AT THAT TIME; POSS DIFF INTUBATING. was in ICU for 3 days. pt states her PCP has been unable to get anesthesia record from [facility]. Past Psychological History: Anxiety, Depression Smoking Status: Former smoker Past Alcohol Use History: None Reported Past Drug Use History: None Reported - Past Family History Father Family Medical History: Cancer Mother Family Medical History: Cancer Additional Family Medical History / Comment(s): Mother had lung cancer. Mother Brother(s) Family Medical History: Cancer Brother(s) Family Medical History: Cancer General Exam Limitations: no limitations General appearance: alert, in no apparent distress Head exam: Present: atraumatic, normocephalic, normal inspection Respiratory exam: Present: normal lung sounds bilaterally. Absent: respiratory distress, wheezes, rales, rhonchi, stridor Cardiovascular Exam: Present: regular rate, normal rhythm, normal heart sounds. Absent: systolic murmur, diastolic murmur, rubs, gallop, clicks GI/Abdominal exam: Present: soft, normal bowel sounds. Absent: distended, tenderness, guarding, rebound, rigid Neurological exam: Present: alert, oriented X3, CN II-XII intact Psychiatric exam: Present: normal affect, normal mood Skin exam: Present: warm, dry, intact, normal color. Absent: rash Course Vital Signs 06/10/23 06/11/23 06/11/23 20:54 00:15 01:34 Temperature 98.7 F Pulse Rate 88 78 91 Respiratory 16 18 18 Rate Blood Pressure 154/80 147/78 145/62 O2 Sat by Pulse 98 97 97 Oximetry Medical Decision Making - Medical Decision Making This is an 87-year-old female who presents to the emergency department for nausea, vomiting, and diarrhea. Was pt. sent in by a medical professional or institution? @ -No Did you speak to anyone other than the patient for history? @ -No Did you review nursing and triage notes? @ -Yes, and I agree, it is accurate with regards to the patient's symptoms. Were old charts reviewed? @ -No Differential Diagnosis? @ -Differential Nausea and Vomiting: Gastroenteritis, cholecystitis, appendicitis, pancreatitis, migraine, benign positional vertigo, food borne illness, pyelonephritis, irritable bowel syndrome, influenza, Covid, GERD, incarcerated hernia, intestinal obstruction, this is not meant to be an all-inclusive list. EKG interpreted by me (3pts min.)? @ -Not obtained X-rays interpreted by me (1pt min.)? @ -Not obtained CT interpreted by me (1pt min.)? @ -Not obtained U/S interpreted by me (1pt. min.)? @ -Not obtained What testing was considered but not performed? (CT, X-rays, U/S, labs)? Why? @ -None What meds were considered but not given? Why? @ -None Did you discuss the management of the patient with other professionals? @ -No Did you reconcile home meds? @ -No Was smoking cessation discussed for >3mins.? @ -No Was critical care preformed (if so, how long)? @ -No Were there social determinants of health that impacted care today? How? (Homelessness, low income, unemployed, alcoholism, drug addiction, t ransportation, low edu. Level, literacy, decrease access to med. care, nursing home, rehab)? @ -No Was there de-escalation of care discussed even if they declined? (Discuss DNR or withdrawal of care, Hospice)? @ -No What co-morbidities impacted this encounter? (DM, HTN, Smoking, COPD, CAD, Cancer, CVA, Hep., AIDS, mental health diagnosis, sleep apnea, morbid obesity)? @ -GERD, HTN, CKD Was patient admitted / discharged? @ -Discharged. Lab work obtained revealing an elevated lactic acid of 2.4, likely related to dehydration and the patient's symptoms. Renal function is decreased, but stable when compared with prior values. Urinalysis negative for signs of infection. Covid, influenza, and RSV testing were negative. I did order C. diff testing, however the patient was unable to provide a stool sample in the emergency department. Patient treated with IV fluids and Zofran and had significant relief in symptoms. She was tolerating oral intake afterwards and f elt stable for discharge home. Prescription for Zofran provided with dosing instructions reviewed. Advised [id number] Imodium as needed for diarrhea. She is also advised to slowly advance her diet as tolerated and remain well- hydrated. Undiagnosed new problem with uncertain prognosis? @ -None Drug Therapy requiring intensive monitoring for toxicity (Heparin, Nitro, Insulin, Cardizem)? @ -None Were any procedures done? @ -None Diagnosis/symptom? @ -N/V/D Acute, or Chronic, or Acute on Chronic? @ -Acute Uncomplicated (without systemic symptoms) or Complicated (systemic symptoms)? @ -Uncomplicated Side effects of treatment? @ -None Exacerbation, Progression, or Severe Exacerbation] @ -Not applicable Poses a threat to life or bodily function? @ -No Return precautions reviewed in depth, the patient is instructed to return to the emergency department with any new, worsening, or concerning symptoms. Patient verbalized understanding. This case was discussed in detail with the attending ED physician, Dr. Hayes. Presentation, findings, and treatment plan discussed in detail as well. - Lab Data Result diagrams: 06/10/23 22:05 06/10/23 22:05 Lab Results 06/10/23 06/10/23 06/10/23 Range/Units 22:05 22:05 22:05 WBC 10.4 (3.8-10.6) k/uL RBC 4.32 (3.80-5.40) m/uL Hgb 14.1 (11.4-16.0) gm/dL Hct 39.8 (34.0-46.0) % MCV 92.1 (80.0-100.0) fL MCH 32.6 (25.0-35.0) pg MCHC 35.4 (31.0-37.0) g/dL RDW 12.2 (11.5-15.5) % Plt Count 220 (150-450) k/uL MPV 7.4 Neutrophils % 94 % Lymphocytes % 2 % Monocytes % 2 % Eosinophils % 1 % Basophils % 0 % Neutrophils # 9.8 H (1.3-7.7) k/uL Lymphocytes # 0.2 L (1.0-4.8) k/uL Monocytes # 0.2 (0-1.0) k/uL Eosinophils # 0.1 (0-0.7) k/uL Basophils # 0.0 (0-0.2) k/uL Sodium 138 (137-145) mmol/L Potassium 4.3 (3.5-5.1) mmol/L Chloride 103 (98-107) mmol/L Carbon Dioxide 16 L (22-30) mmol/L Anion Gap 19 mmol/L BUN 39 H (7-17) mg/dL Creatinine 1.25 H (0.52-1.04) mg/dL Est GFR (CKD-EPI)AfAm 46 (>60 ml/min/1.73 sqM) Est GFR (CKD-EPI)NonAf 39 (>60 ml/min/1.73 sqM) Glucose 213 H (74-99) mg/dL Lactic Ac Sepsis Rflx Plasma Lactic Acid Robbi (0.7-2.0) mmol/L Calcium 10.0 (8.4-10.2) mg/dL Total Bilirubin 1.1 (0.2-1.3) mg/dL AST 28 (14-36) U/L ALT 22 (4-34) U/L Alkaline Phosphatase 110 (38-126) U/L Total Protein 7.7 (6.3-8.2) g/dL Albumin 4.7 (3.5-5.0) g/dL Lipase 17 L (23-300) U/L Urine Color Urine Appearance (Clear) Urine pH (5.0-8.0) Ur Specific [place] (1.001-1.035) Urine Protein (Negative) Urine Glucose (UA) (Negative) Urine Ketones (Negative) Urine Blood (Negative) Urine Nitrite (Negative) Urine Bilirubin (Negative) Urine Urobilinogen (<2.0) mg/dL Ur Leukocyte Esterase (Negative) Influenza Type A (PCR) Not Detected (Not Detectd) Influenza Type B (PCR) Not Detected (Not Detectd) RSV (PCR) Not Detected (Not Detectd) SARS-CoV-2 (PCR) Not Detected (Not Detectd) 06/10/23 06/10/23 06/11/23 Range/Units 22:05 22:56 00:21 WBC (3.8-10.6) k/uL RBC (3.80-5.40) m/uL Hgb (11.4-16.0) gm/dL Hct (34.0-46.0) % MCV (80.0-100.0) fL MCH (25.0-35.0) pg MCHC (31.0-37.0) g/dL RDW (11.5-15.5) % Plt Count (150-450) k/uL MPV Neutrophils % % Lymphocytes % % Monocytes % % Eosinophils % % Basophils % % Neutrophils # (1.3-7.7) k/uL Lymphocytes # (1.0-4.8) k/uL Monocytes # (0-1.0) k/uL Eosinophils # (0-0.7) k/uL Basophils # (0-0.2) k/uL Sodium (137-145) mmol/L Potassium (3.5-5.1) mmol/L Chloride (98-107) mmol/L Carbon Dioxide (22-30) mmol/L Anion Gap mmol/L BUN (7-17) mg/dL Creatinine (0.52-1.04) mg/dL Est GFR (CKD-EPI)AfAm (>60 ml/min/1.73 sqM) Est GFR (CKD-EPI)NonAf (>60 ml/min/1.73 sqM) Glucose (74-99) mg/dL Lactic Ac Sepsis Rflx Y Plasma Lactic Acid Robbi 2.4 H* (0.7-2.0) mmol/L Calcium (8.4-10.2) mg/dL Total Bilirubin (0.2-1.3) mg/dL AST (14-36) U/L ALT (4-34) U/L Alkaline Phosphatase (38-126) U/L Total Protein (6.3-8.2) g/dL Albumin (3.5-5.0) g/dL Lipase (23-300) U/L Urine Color Light Yellow Urine Appearance Clear (Clear) Urine pH 6.0 (5.0-8.0) Ur Specific [place] 1.018 (1.001-1.035) Urine Protein Negative (Negative) Urine Glucose (UA) Negative (Negative) Urine Ketones 1+ H (Negative) Urine Blood Negative (Negative) Urine Nitrite Negative (Negative) Urine Bilirubin Negative (Negative) Urine Urobilinogen <2.0 (<2.0) mg/dL Ur Leukocyte Esterase Negative (Negative) Influenza Type A (PCR) (Not Detectd) Influenza Type B (PCR) (Not Detectd) RSV (PCR) (Not Detectd) SARS-CoV-2 (PCR) (Not Detectd) Disposition Clinical Impression: Nausea vomiting and diarrhea Disposition: HOME SELF-CARE Instructions (If sedation given, give patient instructions): Acute Nausea and Vomiting (ED), Acute Diarrhea (ED) Additional Instructions: Return to the emergency department with any new, worsening, or concerning symptoms. You can take the Zofran up to every 8 hours as needed for nausea and vomiting. You can also take [id number] Imodium as needed for diarrhea. Slowly advance your diet as tolerated and remain well-hydrated. Follow up with your primary care provider in 1-2 days. Prescriptions: Ondansetron Odt [Zofran Odt] 4 mg PO Q8HR PRN #20 tab PRN Reason: Nausea And Vomiting Is patient prescribed a controlled substance at d/c from ED?: No Referrals: Maribeth Campo MD [Primary Care Provider] - 1-2 days
[2023-06-10 22:23] LABS: Basophils % (A) 0 %; Eosinophils # (A) 0.1 k/uL (0-0.7); Eosinophils % (A) 1 %; HCT 39.8 % (34.0-46.0); HGB 14.1 gm/dL (11.4-16.0); Lymphocytes # (A) 0.2 k/uL (1.0-4.8); Lymphocytes % (A) 2 %; MCH 32.6 pg (25.0-35.0); MCHC 35.4 g/dL (31.0-37.0); MCV 92.1 fL (80.0-100.0); Mean Platelet Volume 7.4; Monocytes # (A) 0.2 k/uL (0-1.0); Monocytes % (A) 2 %; Neutrophils # (A) 9.8 k/uL (1.3-7.7); Neutrophils % (A) 94 %; Platelet Count 220 k/uL (150-450); RBC 4.32 m/uL (3.80-5.40); RDW 12.2 % (11.5-15.5); WBC 10.4 k/uL (3.8-10.6)
[2023-06-10 22:31] LABS: ALT 22 U/L (4-34); AST 28 U/L (14-36); African American GFR (CKD) 46 (>60 ml/min/1.73 sqM); Albumin 4.7 g/dL (3.5-5.0); Alkaline Phosphatase 110 U/L (38-126); Anion Gap 19 mmol/L; Blood Urea Nitrogen 39 mg/dL (7-17); Carbon Dioxide 16 mmol/L (22-30); Chloride 103 mmol/L (98-107); Glucose 213 mg/dL (74-99); Lipase 17 U/L (23-300); Non-African American GFR(CKD) 39 (>60 ml/min/1.73 sqM); Potassium 4.3 mmol/L (3.5-5.1); Sodium 138 mmol/L (137-145); Total Bilirubin 1.1 mg/dL (0.2-1.3); Total Protein 7.7 g/dL (6.3-8.2)
[2023-06-10] MEDS ORDERED: DIPHENOX-ATROP STARTER PACK 8 TAB BTL PO STA (23:48)
[2023-06-10] MEDS ORDERED: ONDANSETRON 4 MG ODT STARTER PACK 2 TAB BTL PO STA (23:48)
[2023-06-11 00:57] VITALS: RESP 18
[2023-06-11 00:59] LABS: Appearance,Urine Clear (Clear); Bilirubin,Urine Negative (Negative); Blood,Urine Negative (Negative); Color,Urine Light Yellow; Glucose,Urine (UA) Negative (Negative); Ketones,Urine 1+ (Negative); Leukocyte Esterase,Urine Negative (Negative); Nitrite,Urine Negative (Negative); Protein,Urine Negative (Negative); Specific Gravity,Urine 1.018 (1.001-1.035); Urobilinogen,Urine <2.0 mg/dL (<2.0)
[2023-06-11 01:49] VITALS: BP 145/62; PULSE 91
== END 2023-06-11 01:41 | disposition home or self-care (01) ==
LOC: EC 20:40
DX: R11.2 Nausea with vomiting, unspecified (principal); R19.7 Diarrhea, unspecified; R74.02 Elevation of levels of lactic acid dehydrogenase [LDH]; I12.9 Hypertensive chronic kidney disease with stage 1 through stage 4 chronic kidney disease, or unspecified chronic kidney disease; N18.9 Chronic kidney disease, unspecified; K21.9 Gastro-esophageal reflux disease without esophagitis; F32.A Depression, unspecified; F41.9 Anxiety disorder, unspecified; Z20.822 Contact with and (suspected) exposure to COVID-19; Z79.899 Other long term (current) drug therapy; Z88.0 Allergy status to penicillin; Z88.2 Allergy status to sulfonamides; Z87.891 Personal history of nicotine dependence
CPT/HCPCS: 80053; 83605; 83690; 85025; 87636; 99284; 96374; 96361 ×3; J2405; 36415; 81003

== ENCOUNTER 2023-10-31 15:47 | Emergency (ER) | payer MEDICARE ==
--- NOTE | 2023-10-31 17:05 | ED ---
Dizziness HPI - General Chief Complaint: Dizziness Stated Complaint: hypotension fall head injury Time Seen by Provider: 10/31/23 16:40 Source: patient, RN notes reviewed Mode of arrival: ambulatory Limitations: no limitations - History of Present Illness Initial Comments: 88-year-old female with history of hypertension presenting to the ED with chief complaint of lightheadedness. Patient states she has been lightheaded for several weeks now. Describes the sensation as feeling like she may pass out but denies any syncopal episodes. Denies feeling like the room is spinning. States she was taking a walk on a sidewalk yesterday when she tripped and fell, losing her balance and falling backwards, hitting the back of her head on the cement. Denies loss of consciousness or blood thinners. The fall was unwitnessed. Denies other injuries but reports some tenderness in the back of her head last night. Denies current headache but admits she is still having the lightheadedness. She was sent by urgent care today for concern for head injury and states her blood pressure was 80/50 at the urgent care. She took her blood pressure medication today and has had no recent changes. Denies vision changes, numbness, tingling, weakness, confusion, palpitations, cough, fever, URI symptoms, dysuria, urinary frequency, urinary urgency. - Related Data Home Medications Medication Instructions Recorded Confirmed Fluticasone Propionate [Flovent 2 puff INHALATION RT-BID 07/29/20 10/26/22 Hfa 44 mcg] Folic Acid 0.8 mg PO DAILY 07/29/20 10/26/22 Sertraline [Zoloft] 100 mg PO DAILY 07/29/20 10/26/22 Multivit-Min/Iron/Folic/Lutein 1 tab PO DAILY 05/17/21 10/26/22 [Centrum Silver Women Tablet] Omeprazole 20 mg PO DAILY 05/17/21 10/26/22 Previous Rx's Medication Instructions Recorded Losartan [Cozaar] 100 mg PO DAILY #30 tab 05/19/21 Aspirin [Adult Low Dose Aspirin EC] 81 mg PO BID #60 tab 11/01/22 Docusate [Colace] 100 mg PO BID #60 capsule 11/01/22 Ondansetron [Zofran] 4 mg PO Q8HR PRN #21 tab 11/01/22 HYDROcodone/APAP 7.5-325MG [Norris 1 - 2 each PO Q6HR PRN #56 tab 11/02/22 7.5-325] Ondansetron Odt [Zofran Odt] 4 mg PO Q8HR PRN #20 tab 06/10/23 Allergies Allergy/AdvReac Type Severity Reaction Status Date / Time Penicillins Allergy Rash/Hives Verified 10/31/23 16:11 Sulfa (Sulfonamide Allergy Rash/Hives Verified 10/31/23 16:11 Antibiotics) Review of Systems ROS Statement: Those systems with pertinent positive or pertinent negative responses have been documented in the HPI. ROS Other: All systems not noted in ROS Statement are negative. Past Medical History Past Medical History: Hypertension Additional Past Medical History / Comment(s): L breast cancer with mastectomy, ovarian cancer with total hysterectomy/chemotherapy, skin cancer with removals, bowel obstructions, bronchitis, kidney stones, EDENILSON with Cpap, UTI, aura migraines, varicosities. History of Any Multi-Drug Resistant Organisms: None Reported Past Surgical History: Breast Surgery, Ear Surgery, Hysterectomy, Joint Replacement, Orthopedic Surgery, Tonsillectomy, Tubal Ligation Additional Past Surgical History / Comment(s): Abdominal surgery/adhesions removed, skin cancer removals, L mastectomy, total hysterectomy, surgery for kidney stones, total L knee arthroplasty, bilateral feet bunionectomies, colonoscopies, several L ear surgeries/myringtotomies/tubes/patch, R ear myringotomy/tube,lazy eye repair as child, Right knee 11/01/2022. Past Anesthesia/Blood Transfusion Reactions: No Reported Reaction, Previous Problems w/ Anesthesia Additional Past Anesthesia/Blood Transfusion Reaction / Comment(s): HAD HEMORRHAGING IN THROAT W/ INTUBATION FOR EAR SURGERY-SURGERY WAS CANCELLED AT THAT TIME; POSS DIFF INTUBATING. was in ICU for 3 days. pt states her PCP has been unable to get anesthesia record from [facility]. Past Psychological History: Anxiety, Depression Smoking Status: Former smoker Past Alcohol Use History: None Reported Past Drug Use History: None Reported - Past Family History Father Family Medical History: Cancer Mother Family Medical History: Cancer Additional Family Medical History / Comment(s): Mother had lung cancer. Mother Brother(s) Family Medical History: Cancer Brother(s) Family Medical History: Cancer General Exam Limitations: no limitations General appearance: alert, in no apparent distress Head exam: Present: atraumatic, normocephalic, normal inspection, other (Mild tenderness in the posterior aspect of scalp. No lacerations, active bleeding, hematomas.) Eye exam: Present: normal appearance, PERRL, EOMI. Absent: scleral icterus, conjunctival injection, periorbital swelling Pupils: Present: normal accommodation ENT exam: Present: normal exam, mucous membranes moist, TM's normal bilaterally Neck exam: Present: normal inspection. Absent: tenderness, meningismus, lymphadenopathy Respiratory exam: Present: normal lung sounds bilaterally. Absent: respiratory distress, wheezes, rales, rhonchi, stridor Cardiovascular Exam: Present: regular rate, normal rhythm, normal heart sounds. Absent: systolic murmur, diastolic murmur, rubs, gallop, clicks GI/Abdominal exam: Present: soft, normal bowel sounds. Absent: distended, tenderness, guarding, rebound, rigid Extremities exam: Present: normal inspection, full ROM, normal capillary refill. Absent: tenderness, pedal edema, joint swelling, calf tenderness Back exam: Present: normal inspection Neurological exam: Present: alert, oriented X3, CN II-XII intact Psychiatric exam: Present: normal affect, normal mood Skin exam: Present: warm, dry, intact, normal color. Absent: rash Course Vital Signs 10/31/23 10/31/23 10/31/23 16:06 17:21 19:34 Temperature 98 F 98.1 F Pulse Rate 94 80 81 Respiratory 20 18 18 Rate Blood Pressure 115/59 120/55 154/74 O2 Sat by Pulse 97 98 96 Oximetry EKG Findings - EKG Results: EKG: interpreted by ERMD (EKG reveals normal sinus rhythm with right bundle branch block. Ventricular rate 86 bpm, AL interval 166, QRS duration 110, QT/QTc 362/405.) Medical Decision Making - Medical Decision Making Was pt. sent in by a medical professional or institution (, [facility]SIE, SOW FARM MANAGER, urgent care, hospital, or [facility]...) When possible be specific @ -Sent by urgent care Did you speak to anyone other than the patient for history (EMS, parent, family, police, friend...)? What history was obtained from this source @ -No Did you review nursing and triage notes (agree or disagree)? Why? @ -I reviewed and agree with nursing and triage notes Were old charts reviewed (outside hosp., previous admission, EMS record, old EKG, old radiological studies, urgent care reports/EKG's, [facility] records)? Report findings @ -No old charts were reviewed Differential Diagnosis (chest pain, altered mental status, abdominal pain women, abdominal pain men, vaginal bleeding, weakness, fever, dyspnea, syncope, headache, dizziness, GI bleed, back pain, seizure, CVA, palpatations, mental health, musculoskeletal)? @ -Differential Dizziness: Benign paroxysmal positional Vertigo, Menieres disease, otitis media, acoustic neuroma, vertebrobasilar insufficiency, cerebellar stroke, encephalitis, hypovolemic, arrhythmia, coronary artery syndrome, anemia, this is not meant to be an all-inclusive list EKG interpreted by me (3pts min.). @ -As above X-rays interpreted by me (1pt min.). @ -Chest x-ray negative for acute abnormality CT interpreted by me (1pt min.). @ -CT of head and neck negative, however there is incidental finding of multifocal groundglass opacities in the lung, as well as 7 mm left thyroid hypodense nodule U/S interpreted by me (1pt. min.). @ -None done What testing was considered but not performed or refused? (CT, X-rays, U/S, labs)? Why? @ -None What meds were considered but not given or refused? Why? @ -None Did you discuss the management of the patient with other professionals (professionals i.e. , PA, SOW FARM MANAGER, lab, RT, psych nurse, social service worker, help desk intern, teacher, fire information officer, family independence case manager)? Give summary @ -No Was smoking cessation discussed for >3mins.? @ -No Was critical care preformed (if so, how long)? @ -No Were there social determinants of health that impacted care today? How? (Homelessness, low income, unemployed, alcoholism, drug addiction, transportation, low edu. Level, literacy, decrease access to med. care, [facility], rehab)? @ -No Was there de-escalation of care discussed even if they declined (Discuss DNR or withdrawal of care, Hospice)? DNR status @ -No What co-morbidities impacted this encounter? (DM, HTN, Smoking, COPD, CAD, C ancer, CVA, ARF, Chemo, Hep., AIDS, mental health diagnosis, sleep apnea, morbid obesity)? @ -None Was patient admitted / discharged? Hospital course, mention meds given and route, prescriptions, significant lab abnormalities, going to OR and other pertinent info. @ -Patient was discharged. Patient was seen and evaluated for lightheadedness for 1 month and head injury 1 day ago. Denies loss of consciousness or thinners. Blood pressure and heart rate are normal throughout visit. Neuro examination unremarkable. CT head and neck unremarkable. Lab work revealed mild dehydration and decreased kidney function. Chest x-ray negative. Discussed with patient there are no signs of emergent etiology for lightheadedness upon evaluation today. Instructed to follow-up with PCP regarding incidental findings on CT as well as kidney function. Encouraged oral hydration. Strict return/alarm symptoms discussed with patient and patient shows understanding and agrees to plan. Patient discharged in stable condition. Case discussed with Dr. Pham. Undiagnosed new problem with uncertain prognosis? @ -No Drug Therapy requiring intensive monitoring for toxicity (Heparin, Nitro, Insulin, Cardizem)? @ -No Were any procedures done? @ -No Diagnosis/symptom? @ -Lightheadedness, head injury Acute, or Chronic, or Acute on Chronic? @ -Acute Uncomplicated (without systemic symptoms) or Complicated (systemic symptoms)? @ -Uncomplicated Side effects of treatment? @ -No Exacerbation, Progression, or Severe Exacerbation? @ -No Poses a threat to life or bodily function? How? (Chest pain, USA, OR, pneumonia, PE, COPD, DKA, ARF, appy, cholecystitis, CVA, Diverticulitis, Homicidal, Suicidal, threat to staff... and all critical care pts) @ -No - Lab Data Result diagrams: 10/31/23 17:03 10/31/23 17:03 Lab Results 10/31/23 10/31/23 10/31/23 Range/Units 17:03 17:03 17:03 WBC 7.3 (3.8-10.6) k/uL RBC 3.58 L (3.80-5.40) m/uL Hgb 11.6 (11.4-16.0) gm/dL Hct 33.7 L (34.0-46.0) % MCV 94.0 (80.0-100.0) fL MCH 32.4 (25.0-35.0) pg MCHC 34.4 (31.0-37.0) g/dL RDW 11.9 (11.5-15.5) % Plt Count 203 (150-450) k/uL MPV 7.6 Neutrophils % 70 % Lymphocytes % 19 % Monocytes % 6 % Eosinophils % 2 % Basophils % 1 % Neutrophils # 5.1 (1.3-7.7) k/uL Lymphocytes # 1.4 (1.0-4.8) k/uL Monocytes # 0.5 (0-1.0) k/uL Eosinophils # 0.1 (0-0.7) k/uL Basophils # 0.1 (0-0.2) k/uL PT 10.2 (10.0-12.5) sec INR 0.9 (<1.2) Sodium 137 (137-145) mmol/L Potassium 3.7 (3.5-5.1) mmol/L Chloride 106 (98-107) mmol/L Carbon Dioxide 22 (22-30) mmol/L Anion Gap 9 mmol/L BUN 36 H (7-17) mg/dL Creatinine 1.72 H (0.52-1.04) mg/dL Est GFR (CKD-EPI)AfAm 31 (>60 ml/min/1.73 sqM) Est GFR (CKD-EPI)NonAf 27 (>60 ml/min/1.73 sqM) Glucose 90 (74-99) mg/dL Calcium 9.2 (8.4-10.2) mg/dL Total Bilirubin 0.7 (0.2-1.3) mg/dL AST 25 (14-36) U/L ALT 16 (4-34) U/L Alkaline Phosphatase 99 (38-126) U/L Troponin I (0.000-0.034) ng/mL Total Protein 6.6 (6.3-8.2) g/dL Albumin 3.9 (3.5-5.0) g/dL 10/31/23 Range/Units 17:03 WBC (3.8-10.6) k/uL RBC (3.80-5.40) m/uL Hgb (11.4-16.0) gm/dL Hct (34.0-46.0) % MCV (80.0-100.0) fL MCH (25.0-35.0) pg MCHC (31.0-37.0) g/dL RDW (11.5-15.5) % Plt Count (150-450) k/uL MPV Neutrophils % % Lymphocytes % % Monocytes % % Eosinophils % % Basophils % % Neutrophils # (1.3-7.7) k/uL Lymphocytes # (1.0-4.8) k/uL Monocytes # (0-1.0) k/uL Eosinophils # (0-0.7) k/uL Basophils # (0-0.2) k/uL PT (10.0-12.5) sec INR (<1.2) Sodium (137-145) mmol/L Potassium (3.5-5.1) mmol/L Chloride (98-107) mmol/L Carbon Dioxide (22-30) mmol/L Anion Gap mmol/L BUN (7-17) mg/dL Creatinine (0.52-1.04) mg/dL Est GFR (CKD-EPI)AfAm (>60 ml/min/1.73 sqM) Est GFR (CKD-EPI)NonAf (>60 ml/min/1.73 sqM) Glucose (74-99) mg/dL Calcium (8.4-10.2) mg/dL Total Bilirubin (0.2-1.3) mg/dL AST (14-36) U/L ALT (4-34) U/L Alkaline Phosphatase (38-126) U/L Troponin I <0.012 (0.000-0.034) ng/mL Total Protein (6.3-8.2) g/dL Albumin (3.5-5.0) g/dL Disposition Clinical Impression: Lightheadedness Disposition: HOME SELF-CARE Condition: Stable Instructions (If sedation given, give patient instructions): Dizziness (ED) Additional Instructions: Please follow-up with PCP within the week. Please return to the Emergency Department if symptoms worsen or any other concerns. Is patient prescribed a controlled substance at d/c from ED?: No Referrals: Maribeth Campo MD [Primary Care Provider] - 1-2 days Time of Disposition: 19:24
[2023-10-31 17:44] VITALS: RESP 18
[2023-10-31 17:52] LABS: Basophils # (A) 0.1 k/uL (0-0.2); Basophils % (A) 1 %; Eosinophils # (A) 0.1 k/uL (0-0.7); Eosinophils % (A) 2 %; HCT 33.7 % (34.0-46.0); HGB 11.6 gm/dL (11.4-16.0); Lymphocytes # (A) 1.4 k/uL (1.0-4.8); Lymphocytes % (A) 19 %; MCH 32.4 pg (25.0-35.0); MCHC 34.4 g/dL (31.0-37.0); Mean Platelet Volume 7.6; Monocytes # (A) 0.5 k/uL (0-1.0); Monocytes % (A) 6 %; Neutrophils # (A) 5.1 k/uL (1.3-7.7); Neutrophils % (A) 70 %; Platelet Count 203 k/uL (150-450); RBC 3.58 m/uL (3.80-5.40); RDW 11.9 % (11.5-15.5); WBC 7.3 k/uL (3.8-10.6)
[2023-10-31 18:02] LABS: ALT 16 U/L (4-34); AST 25 U/L (14-36); African American GFR (CKD) 31 (>60 ml/min/1.73 sqM); Albumin 3.9 g/dL (3.5-5.0); Alkaline Phosphatase 99 U/L (38-126); Anion Gap 9 mmol/L; Blood Urea Nitrogen 36 mg/dL (7-17); Calcium 9.2 mg/dL (8.4-10.2); Carbon Dioxide 22 mmol/L (22-30); Chloride 106 mmol/L (98-107); Glucose 90 mg/dL (74-99); INR 0.9 (<1.2); Non-African American GFR(CKD) 27 (>60 ml/min/1.73 sqM); Potassium 3.7 mmol/L (3.5-5.1); Prothrombin Time 10.2 sec (10.0-12.5); Sodium 137 mmol/L (137-145); Total Bilirubin 0.7 mg/dL (0.2-1.3); Total Protein 6.6 g/dL (6.3-8.2)
--- NOTE | 2023-10-31 18:33 | CT ---
EXAMINATION TYPE: CT brain cspine wo con DATE OF EXAM: 10/31/2023 HISTORY: headache, neck pain, dizziness, htn. CT DLP: 1345.1 mGycm. Automated Exposure Control for Dose Reduction was Utilized. TECHNIQUE: CT scan of the head and cervical spine are performed without contrast. COMPARISON: None FINDINGS: There is no skull fracture or intracranial hemorrhage. No mass or mass effect. No definite new attenu ation defect. Extra-axial compartment is unremarkable. Orbits are intact. Paranasal sinuses, middle e ar cavities, and and mastoid sinus air are clear. Cervical spine is negative for acute fracture or malalignment. Marked multilevel cervical spondylosis changes are noted. IMPRESSION: BRAIN/C-SPINE: NO ACUTE PROCESS. Incidental findings: Multifocal groundglass opacities the lung apices can correlate with a clinical d iagnosis of developing or resolving multifocal pneumonia. Bilateral 7 mm left thyroid hypodense nodul es noted, which can be characterized with thyroid ultrasound.
--- NOTE | 2023-10-31 18:54 | XR ---
EXAMINATION: XR chest 2V: 10/31/2023 6:22 PM CLINICAL INDICATION: lightheadedness/hypotension TECHNIQUE: Departmental protocol COMPARISON: 07/01/2014 FINDINGS: The lungs are clear. The pleural spaces are negative. The cardiac silhouette is not enlarged. The skeletal structures and soft tissues are negative for acute findings. IMPRESSION: No acute radiographic process.
[2023-10-31 20:13] VITALS: BP 154/74; PULSE 81; TEMP 98.1
== END 2023-10-31 19:49 | disposition home or self-care (01) ==
LOC: EC 15:47
DX: R42 Dizziness and giddiness (principal); Z87.891 Personal history of nicotine dependence; Z88.0 Allergy status to penicillin; Z88.2 Allergy status to sulfonamides
CPT/HCPCS: 36415; 70450; 71046; 72125; 80053; 84484; 85025; 85610; 93005; 99284

== ENCOUNTER 2024-03-12 16:42 | Observation (INO) | payer MEDICARE ==
--- NOTE | 2024-03-12 17:07 | ED ---
Altered Mental Status HPI - General Chief Complaint: Altered Mental Status Stated Complaint: neuro symptoms Time Seen by Provider: 03/12/24 16:59 Source: patient, RN notes reviewed, old records reviewed Mode of arrival: wheelchair Limitations: no limitations - History of Present Illness Initial Comments: This is an 88-year-old female here for evaluation of altered mental status not acting appropriate for a few days now with symptoms worsening family member and caregivers are at bedside concern for patient's current clinical condition and unable to answer questions MD Complaint: altered mental status Severity: moderate Consistency of Symptoms: waxing and waning, getting worse Associated Symptoms: weakness Treatments Prior to Arrival: other pre-hospital medication (0) - Related Data Home Medications Medication Instructions Recorded Confirmed Sertraline [Zoloft] 100 mg PO DAILY 07/29/20 03/12/24 DULoxetine HCL [Cymbalta] 40 mg PO DAILY 03/12/24 03/12/24 Olmesartan/Hydrochlorothiazide 1 tab PO DAILY 03/12/24 03/12/24 [Olmesartan-Hctz 40-25 mg Tab] Previous Rx's Medication Instructions Recorded Fluticasone Nasal [place] [Flonase 1 spray EA NOSTRIL DAILY 30 Days 03/19/24 Nasal [place]] #16 gm Fluticasone Propionate 1 puff INHALATION BID #10.6 gm 03/19/24 [Fluticasone Propionate Hfa 44 MCG (Inhaler)] Pantoprazole Sodium [Protonix] 40 mg PO DAILY #30 tab 03/19/24 Allergies Allergy/AdvReac Type Severity Reaction Status Date / Time Penicillins Allergy Rash/Hives Verified 03/12/24 19:12 Sulfa (Sulfonamide Allergy Rash/Hives Verified 03/12/24 19:12 Antibiotics) Review of Systems ROS Statement: Those systems with pertinent positive or pertinent negative responses have been documented in the HPI. ROS Other: All systems not noted in ROS Statement are negative. Past Medical History Past Medical History: Hypertension Additional Past Medical History / Comment(s): L breast cancer with mastectomy, ovarian cancer with total hysterectomy/chemotherapy, skin cancer with removals, bowel obstructions, bronchitis, kidney stones, EDENILSON with Cpap, UTI, aura migraines, varicosities. History of Any Multi-Drug Resistant Organisms: None Reported Past Surgical History: Breast Surgery, Ear Surgery, Hysterectomy, Joint Replacement, Orthopedic Surgery, Tonsillectomy, Tubal Ligation Additional Past Surgical History / Comment(s): Abdominal surgery/adhesions removed, skin cancer removals, L mastectomy, total hysterectomy, surgery for kidney stones, total L knee arthroplasty, bilateral feet bunionectomies, colonoscopies, several L ear surgeries/myringtotomies/tubes/patch, R ear myring otomy/tube,lazy eye repair as child, Right knee 11/01/2022. Past Anesthesia/Blood Transfusion Reactions: No Reported Reaction, Previous Problems w/ Anesthesia Additional Past Anesthesia/Blood Transfusion Reaction / Comment(s): HAD HEMORRHAGING IN THROAT W/ INTUBATION FOR EAR SURGERY-SURGERY WAS CANCELLED AT THAT TIME; POSS DIFF INTUBATING. was in ICU for 3 days. pt states her PCP has been unable to get anesthesia record from [facility]. Past Psychological History: Anxiety, Depression Smoking Status: Former smoker Past Alcohol Use History: None Reported Past Drug Use History: None Reported - Past Family History Father Family Medical History: Cancer Mother Family Medical History: Cancer Additional Family Medical History / Comment(s): Mother had lung cancer. Mother Brother(s) Family Medical History: Cancer Brother(s) Family Medical History: Cancer General Exam Limitations: no limitations, altered mental status General appearance: alert, in no apparent distress, anxious Head exam: Present: atraumatic, normocephalic, normal inspection Eye exam: Present: normal appearance, PERRL, EOMI. Absent: scleral icterus, conjunctival injection, periorbital swelling ENT exam: Present: normal exam, mucous membranes moist Neck exam: Present: normal inspection. Absent: tenderness, meningismus, lymp hadenopathy Respiratory exam: Present: normal lung sounds bilaterally. Absent: respiratory distress, wheezes, rales, rhonchi, stridor Cardiovascular Exam: Present: normal rhythm, bradycardia, normal heart sounds. Absent: systolic murmur, diastolic murmur, rubs, gallop, clicks GI/Abdominal exam: Present: soft, normal bowel sounds. Absent: distended, tenderness, guarding, rebound, rigid Extremities exam: Present: normal inspection, full ROM, normal capillary refill. Absent: tenderness, pedal edema, joint swelling, calf tenderness Back exam: Present: normal inspection Neurological exam: Present: alert, oriented X3, CN II-XII intact Psychiatric exam: Present: normal affect, normal mood Skin exam: Present: warm, dry, intact, normal color. Absent: rash Course Vital Signs 03/12/24 03/12/24 03/13/24 16:49 20:00 02:00 Temperature 98.2 F Pulse Rate 43 L 70 69 Respiratory 18 24 18 Rate Blood Pressure 126/54 168/93 155/94 O2 Sat by Pulse 98 95 97 Oximetry 03/13/24 03/13/24 03/13/24 05:34 07:26 12:30 Temperature 98.5 F 98.0 F Pulse Rate 72 62 68 Respiratory 18 20 18 Rate Blood Pressure 179/82 150/71 148/69 O2 Sat by Pulse 97 96 97 Oximetry 03/13/24 16:49 Temperature 98.0 F Pulse Rate 67 Respiratory 18 Rate Blood Pressure 172/71 O2 Sat by Pulse 96 Oximetry - Reevaluation(s) Reevaluation #1: 03/12/24 18:47 Records reviewed Reevaluation #2: 03/12/24 18:47 Patient has no real improvement in symptoms here in the ER Reevaluation #3: 03/12/24 18:56 Informed of results and questions answered Reevaluation #4: Was pt. sent in by a medical professional or institution (, PA, TERMITE INSPECTOR, urgent care, hospital, or long-term...) When possible be specific @ -no Did you speak to anyone other than the patient for history (EMS, parent, family, police, friend...)? What history was obtained from this source @ -no Did you review nursing and triage notes (agree or disagree)? Why? @ -agree Are old charts reviewed (outside hosp., previous admission, EMS record, old EKG, old radiological studies, urgent care reports/EKG's, long-term records)? Rep ort findings @ -yes Differential Diagnosis (chest pain, altered mental status, abdominal pain women, abdominal pain men, vaginal bleeding, weakness, fever, dyspnea, syncope, headache, dizziness, GI bleed, back pain, seizure, CVA, palpatations, mental health, musculoskeletal)? @ -prior EKG interpreted by me (3pts min.). @ -yes X-rays interpreted by me (1pt min.). @ -yes negative for acute disease CT interpreted by me (1pt min.). @ -Yes negative for acute disease U/S interpreted by me (1pt. min.). @ -no What testing was considered but not performed or refused? (CT, X-rays, U/S, labs)? Why? @ -none What meds were considered but not given or refused? Why? @ -none Did you discuss the management of the patient with other professionals (professionals i.e. Dr., PA, TERMITE INSPECTOR, lab, RT, psych nurse, forensic social worker, quilt stuffer, teacher, army officer, porter sample case)? Give summary @ -no Was smoking cessation discussed for >3mins.? @ -no Was critical care preformed (if so, how long)? @ -no Were there social determinants of health that impacted care today? How? (Homelessness, low income, unemployed, alcoholism, drug addiction, transportation, low edu. Level, literacy, decrease access to med. care, [facility], rehab)? @ -none Was there de-escalation of care discussed even if they declined (Discuss DNR or withdrawal of care, Hospice)? DNR status @ -no What co-morbidities impacted this encounter? (DM, HTN, Smoking, COPD, CAD, Cancer, CVA, ARF, Chemo, Hep., AIDS, mental health diagnosis, sleep apnea, morbid obesity)? @ -none Was patient admitted / discharged? Hospital course, mention meds given and route, prescriptions, significant lab abnormalities, going to OR and other pertinent info. @ - 88 female will be admitted for altered mental status, no acute cause found here in the ER, patient has no improvement in symptoms Admitted altered mental status Undiagnosed new problem with uncertain prognosis? @ -no Drug Therapy requiring intensive monitoring for toxicity (Heparin, Nitro, Insuli n, Cardizem)? @ -no Were any procedures done? @ -no Diagnosis/symptom? @ - Acute, or Chronic, or Acute on Chronic? @ -Acute Uncomplicated (without systemic symptoms) or Complicated (systemic symptoms)? @ -Complicated Side effects of treatment? @ -no Exacerbation, Progression, or Severe Exacerbation? @ -exacerbation Poses a threat to life or bodily function? How? (Chest pain, USA, ND, pneumonia, PE, COPD, DKA, ARF, appy, cholecystitis, CVA, Diverticulitis, Homicidal, Suicidal, threat to staff... and all critical care pts) @ -yes with extremes of age Reevaluation #5: Differential Altered Mental Status: Hypoglycemia, DKA, hypercapnia, ETOH, overdose, CO poisoning, trauma, myxedema coma, HTN encephalopathy, infection, encephalitis, psychosis, intercranial hem orrhage, hepatic encephalopathy, meningitis, CVA, this is not meant to be an all-inclusive list - Consultations Consultation #1: Spoke with many physicians who agreed to admit this patient Medical Decision Making - Medical Decision Making 88 female will be admitted for altered mental status, no acute cause found here in the ER, patient has no improvement in symptoms - Lab Data Result diagrams: 03/13/24 08:28 03/13/24 08:28 Lab Results 03/12/24 03/12/24 03/12/24 Range/Units 17:58 17:58 17:58 WBC 7.4 (3.8-10.6) k/uL RBC 3.90 (3.80-5.40) m/uL Hgb 12.5 (11.4-16.0) gm/dL Hct 36.4 (34.0-46.0) % MCV 93.4 (80.0-100.0) fL MCH 32.1 (25.0-35.0) pg MCHC 34.4 (31.0-37.0) g/dL RDW 12.5 (11.5-15.5) % Plt Count 205 (150-450) k/uL MPV 7.5 Neutrophils % 72 % Lymphocytes % 19 % Monocytes % 5 % Eosinophils % 2 % Basophils % 1 % Neutrophils # 5.4 (1.3-7.7) k/uL Lymphocytes # 1.4 (1.0-4.8) k/uL Monocytes # 0.4 (0-1.0) k/uL Eosinophils # 0.1 (0-0.7) k/uL Basophils # 0.0 (0-0.2) k/uL PT 10.6 (10.0-12.5) sec INR 1.0 (<1.2) APTT 24.2 (22.0-30.0) sec Sodium 138 (137-145) mmol/L Potassium 3.4 L (3.5-5.1) mmol/L Chloride 104 (98-107) mmol/L Carbon Dioxide 24 (22-30) mmol/L Anion Gap 10 mmol/L BUN 15 (7-17) mg/dL Creatinine 1.16 H (0.52-1.04) mg/dL Est GFR (CKD-EPI)AfAm 50 (>60 ml/min/1.73 sqM) Est GFR (CKD-EPI)NonAf 43 (>60 ml/min/1.73 sqM) Glucose 131 H (74-99) mg/dL Plasma Lactic Acid Robbi (0.7-2.0) mmol/L Calcium 9.5 (8.4-10.2) mg/dL Phosphorus 3.8 (2.5-4.5) mg/dL Magnesium 1.6 (1.6-2.3) mg/dL Total Bilirubin 0.9 (0.2-1.3) mg/dL AST 22 (14-36) U/L ALT 16 (4-34) U/L Alkaline Phosphatase 82 (38-126) U/L Ammonia (<30) umol/L Troponin I (0.000-0.034) ng/mL NT-Pro-B Natriuret Pep 2580 pg/mL Total Protein 6.8 (6.3-8.2) g/dL Albumin 4.2 (3.5-5.0) g/dL TSH 0.988 (0.465-4.680) mIU/L Urine Color Urine Appearance (Clear) Urine pH (5.0-8.0) Ur Specific [place] (1.001-1.035) Urine Protein (Negative) Urine Glucose (UA) (Negative) Urine Ketones (Negative) Urine Blood (Negative) Urine Nitrite (Negative) Urine Bilirubin (Negative) Urine Urobilinogen (<2.0) mg/dL Ur Leukocyte Esterase (Negative) Serum Alcohol <10 mg/dL 03/12/24 03/12/24 03/12/24 Range/Units 17:58 17:58 18:54 WBC (3.8-10.6) k/uL RBC (3.80-5.40) m/uL Hgb (11.4-16.0) gm/dL Hct (34.0-46.0) % MCV (80.0-100.0) fL MCH (25.0-35.0) pg MCHC (31.0-37.0) g/dL RDW (11.5-15.5) % Plt Count (150-450) k/uL MPV Neutrophils % % Lymphocytes % % Monocytes % % Eosinophils % % Basophils % % Neutrophils # (1.3-7.7) k/uL Lymphocytes # (1.0-4.8) k/uL Monocytes # (0-1.0) k/uL Eosinophils # (0-0.7) k/uL Basophils # (0-0.2) k/uL PT (10.0-12.5) sec INR (<1.2) APTT (22.0-30.0) sec Sodium (137-145) mmol/L Potassium (3.5-5.1) mmol/L Chloride (98-107) mmol/L Carbon Dioxide (22-30) mmol/L Anion Gap mmol/L BUN (7-17) mg/dL Creatinine (0.52-1.04) mg/dL Est GFR (CKD-EPI)AfAm (>60 ml/min/1.73 sqM) Est GFR (CKD-EPI)NonAf (>60 ml/min/1.73 sqM) Glucose (74-99) mg/dL Plasma Lactic Acid Robbi 1.1 (0.7-2.0) mmol/L Calcium (8.4-10.2) mg/dL Phosphorus (2.5-4.5) mg/dL Magnesium (1.6-2.3) mg/dL Total Bilirubin (0.2-1.3) mg/dL AST (14-36) U/L ALT (4-34) U/L Alkaline Phosphatase (38-126) U/L Ammonia <9 (<30) umol/L Troponin I 0.053 H* (0.000-0.034) ng/mL NT-Pro-B Natriuret Pep pg/mL Total Protein (6.3-8.2) g/dL Albumin (3.5-5.0) g/dL TSH (0.465-4.680) mIU/L Urine Color Colorless Urine Appearance Clear (Clear) Urine pH 6.5 (5.0-8.0) Ur Specific [place] 1.011 (1.001-1.035) Urine Protein Negative (Negative) Urine Glucose (UA) Negative (Negative) Urine Ketones Negative (Negative) Urine Blood Negative (Negative) Urine Nitrite Negative (Negative) Urine Bilirubin Negative (Negative) Urine Urobilinogen <2.0 (<2.0) mg/dL Ur Leukocyte Esterase Negative (Negative) Serum Alcohol mg/dL - EKG Data -: EKG Interpreted by Me (EKG is sinus 79 WI 132 QRS 125 QTc 450) - Radiology Data Radiology results: report reviewed (CT brain is negative for acute disease), im age reviewed Critical Care Time Critical Care Time: Yes Total Critical Care Time: 31 Disposition Clinical Impression: Altered mental status, Bradycardia, Delirium due to general medical condition, Acute kidney injury, Weakness Disposition: ADMITTED IP TO THIS HOSP Condition: Fair Is patient prescribed a controlled substance at d/c from ED?: No Time of Disposition: 19:00
[2024-03-12] MEDS: SODIUM CHLORIDE 0.9% 1,000 ML IV STA ×2 (17:58→19:34)
[2024-03-12 18:06] LABS: Basophils % (A) 1 %; Eosinophils # (A) 0.1 k/uL (0-0.7); Eosinophils % (A) 2 %; HCT 36.4 % (34.0-46.0); HGB 12.5 gm/dL (11.4-16.0); Lymphocytes # (A) 1.4 k/uL (1.0-4.8); Lymphocytes % (A) 19 %; MCH 32.1 pg (25.0-35.0); MCHC 34.4 g/dL (31.0-37.0); MCV 93.4 fL (80.0-100.0); Mean Platelet Volume 7.5; Monocytes # (A) 0.4 k/uL (0-1.0); Monocytes % (A) 5 %; Neutrophils # (A) 5.4 k/uL (1.3-7.7); Neutrophils % (A) 72 %; Platelet Count 205 k/uL (150-450); RDW 12.5 % (11.5-15.5); WBC 7.4 k/uL (3.8-10.6)
[2024-03-12 18:18] LABS: Lactic Acid, Venous 1.1 mmol/L (0.7-2.0)
[2024-03-12 18:24] LABS: ALT 16 U/L (4-34); AST 22 U/L (14-36); African American GFR (CKD) 50 (>60 ml/min/1.73 sqM); Albumin 4.2 g/dL (3.5-5.0); Alcohol <10 mg/dL; Alkaline Phosphatase 82 U/L (38-126); Anion Gap 10 mmol/L; Blood Urea Nitrogen 15 mg/dL (7-17); Calcium 9.5 mg/dL (8.4-10.2); Carbon Dioxide 24 mmol/L (22-30); Chloride 104 mmol/L (98-107); Glucose 131 mg/dL (74-99); Magnesium 1.6 mg/dL (1.6-2.3); Non-African American GFR(CKD) 43 (>60 ml/min/1.73 sqM); Phosphorus 3.8 mg/dL (2.5-4.5); Potassium 3.4 mmol/L (3.5-5.1); Sodium 138 mmol/L (137-145); Total Bilirubin 0.9 mg/dL (0.2-1.3); Total Protein 6.8 g/dL (6.3-8.2)
[2024-03-12 18:32] LABS: NT-Pro-B-Type Natriuretic Pept 2580 pg/mL
[2024-03-12 18:40] LABS: Partial Thromboplastin Time 24.2 sec (22.0-30.0); Prothrombin Time 10.6 sec (10.0-12.5)
--- NOTE | 2024-03-12 18:41 | CT ---
EXAMINATION TYPE: CT brain wo con DATE OF EXAM: 03/12/2024 COMPARISON: 10/31/2023 INDICATION: AMS DLP: 2533.7 mGycm, Automated exposure control for dose reduction was used. CONTRAST: None CT of the brain is performed utilizing 3 mm thick sections through the posterior fossa and 3 mm thick sections through the remaining calvarium. Study is performed within 24 hours of arrival to the hosp ital. No abnormal hyperdensity is present to suggest an acute intracranial hemorrhage. No mass lesion is evident. No acute infarcts are evident. There is some patchy periventricular white matter ischemic type change s, present previously. Ventricles and sulci are prominent for the patient age. No temporal horn dilatation is evident. Later al and third ventricles are somewhat prominent in relation to the sulci, stable from comparison. Paranasal sinuses and mastoid air cells within the [id number] are clear. IMPRESSION: 1. No acute intracranial process. Follow up MRI can be performed as clinically indicated. 2. Atrophy with chronic appearing periventricular white matter ischemic changes. [facility], , 03/12/2024 6:39 PM
[2024-03-12] MEDS ORDERED: ONDANSETRON 4 MG/2 ML VIAL IVP PRN (18:55)
[2024-03-12] MEDS ORDERED: NALOXONE 0.4 MG/ML 1 ML VIAL IV PRN (18:55)
[2024-03-12 18:59] LABS: Appearance,Urine Clear (Clear); Bilirubin,Urine Negative (Negative); Blood,Urine Negative (Negative); Color,Urine Colorless; Glucose,Urine (UA) Negative (Negative); Ketones,Urine Negative (Negative); Leukocyte Esterase,Urine Negative (Negative); Nitrite,Urine Negative (Negative); PH, Urine 6.5 (5.0-8.0); Protein,Urine Negative (Negative); Specific Gravity,Urine 1.011 (1.001-1.035); Urobilinogen,Urine <2.0 mg/dL (<2.0)
[2024-03-12] MEDS: SODIUM CHLORIDE 0.9% 1,000 ML IV SCH (19:34)
[2024-03-12] MEDS: POTASSIUM BICARBONATE/CIT AC 20 MEQ TABLET.EFF PO ONE (20:11)
[2024-03-13 09:21] LABS: Basophils % (A) 1 %; Eosinophils # (A) 0.2 k/uL (0-0.7); Eosinophils % (A) 3 %; HCT 37.5 % (34.0-46.0); HGB 12.8 gm/dL (11.4-16.0); Lymphocytes # (A) 1.8 k/uL (1.0-4.8); Lymphocytes % (A) 28 %; MCH 31.9 pg (25.0-35.0); MCV 93.7 fL (80.0-100.0); Mean Platelet Volume 7.8; Monocytes # (A) 0.4 k/uL (0-1.0); Monocytes % (A) 6 %; Neutrophils # (A) 3.9 k/uL (1.3-7.7); Neutrophils % (A) 61 %; Platelet Count 212 k/uL (150-450); RDW 12.6 % (11.5-15.5); WBC 6.4 k/uL (3.8-10.6)
[2024-03-13 09:43] LABS: ALT 17 U/L (4-34); AST 26 U/L (14-36); African American GFR (CKD) 53 (>60 ml/min/1.73 sqM); Albumin 4.2 g/dL (3.5-5.0); Alkaline Phosphatase 73 U/L (38-126); Anion Gap 9 mmol/L; Blood Urea Nitrogen 13 mg/dL (7-17); Calcium 9.8 mg/dL (8.4-10.2); Carbon Dioxide 28 mmol/L (22-30); Chloride 103 mmol/L (98-107); Glucose 124 mg/dL (74-99); Magnesium 1.7 mg/dL (1.6-2.3); Non-African American GFR(CKD) 46 (>60 ml/min/1.73 sqM); Phosphorus 4.7 mg/dL (2.5-4.5); Potassium 3.9 mmol/L (3.5-5.1); Sodium 140 mmol/L (137-145); Total Bilirubin 1.2 mg/dL (0.2-1.3); Total Protein 6.8 g/dL (6.3-8.2)
--- NOTE | 2024-03-13 12:47 | P.HPIM ---
History of Present Illness H&P Date: 03/13/24 History of present illness; 88-year-old female presented to the emergency department for evaluation of altered mental status. Patient's family and caregivers were present at bedside on arrival and states the patient has not been acting appropriately for few days now with symptoms worsening and they are concerned for the patient's clinical condition. Family states that this been increased memory issues/forgetfulness that has been worse over the last 4 days. Patient is a poor historian. Her past medical history is reportedly significant for left breast cancer with mastectomy, ovarian cancer total surgery/chemotherapy, removal (skin cancer, bowel obstructions, history of kidney stones, obstructive sleep apnea with CPAP, history of UTI. Initial lab work done in the emergency department was within normal limits except for an elevated troponin at 0.053. Upon seeing and talking to the patient on two different occasions this morning she appears to have probable vascular dementia, in which she has lucid intervals. Patient will be evaluated for her ability to live and care for herself at home, considering the patient lives alone. Initial lab work done in the ER showed WBC 7.4, Hgb 12.5, Hct 36.4, PLT 205; PT 10.6, INR 1.0, PTT 24.2; sodium 138, potassium 3.4, BUN 15, creatinine 1.16; troponin 0.053 Urinalysis was unremarkable EKG done in the ER showed heart rate of 79, no ST segment elevation or depression seen, no T-wave inversions seen. CT head done showed no acute intracranial process, follow-up MRI can be performed as clinically indicated; atrophy with chronic appearing periventricular white matter ischemic changes Patient admitted to internal medicine service REVIEW OF SYSTEMS: CONSTITUTIONAL: No fever, no malaise, no fatigue. HEENT: No recent visual problems or hearing problems. Denied any sore throat. CARDIOVASCULAR: No chest pain, orthopnea, PND, no palpitations, no syncope. PULMONARY: No shortness of breath, no cough, no hemoptysis. GASTROINTESTINAL: No diarrhea, no nausea, no vomiting, no abdominal pain. NEUROLOGICAL: No headaches, no weakness, no numbness. HEMATOLOGICAL: Denies any bleeding or petechiae. GENITOURINARY: Denies any burning micturition, frequency, or urgency. MUSCULOSKELETAL/RHEUMATOLOGICAL: Denies any joint pain, swelling, or any muscle pain. ENDOCRINE: Denies any polyuria or polydipsia. The rest of the 14-point review of systems is negative. PHYSICAL EXAMINATION: GENERAL: The patient is alert and oriented x3, not in any acute distress. Well developed, well nourished. HEENT: Pupils are round and equally reacting to light. EOMI. No scleral icterus. No conjunctival pallor. Normocephalic, atraumatic. No pharyngeal erythema. No thyromegaly. CARDIOVASCULAR: S1 and S2 present. No murmurs, rubs, or gallops. PULMONARY: Chest is clear to auscultation, no wheezing or crackles. ABDOMEN: Soft, nontender, nondistended, normoactive bowel sounds. No palpable organomegaly. MUSCULOSKELETAL: No joint swelling or deformity. EXTREMITIES: No cyanosis, clubbing, or pedal edema. NEUROLOGICAL: Gross neurological examination did not reveal any focal deficits. SKIN: No rashes. Assessment and plan #Probable vascular dementia Patient has reported memory impairment by her as well as her neighbor Additionally patient shows evidence of lucid intervals Speech therapy consulted to perform mini cognitive test #Generalized weakness Patient lives alone, and has had difficulty with memory as well as lucid intervals Physical therapy and Occupational Therapy have been consulted to evaluate patient patient's ability to care for self Social work consulted to evaluate patient's living conditions #Mildly elevated troponin On arrival patient's troponin 0.053; repeat troponins ordered and currently pending If subsequent troponins remain elevated at 0.053 or greater cardiology will be consulted #Hypertension Patient takes daily hydrochlorothiazide 40-25 mg tab - discontinued Patient will be started on 100 mg daily of losartan Continue to monitor vital signs, monitor CBC, monitor CMP, continue telemetry monitoring Labs and medication were reviewed. Continue with symptomatic treatment. Resume home medication. Dictation was produced using [employer] software. please excuse any grammatical, word or spelling errors. Past Medical History Past Medical History: Hypertension Additional Past Medical History / Comment(s): L breast cancer with mastectomy, ovarian cancer with total hysterectomy/chemotherapy, skin cancer with removals, bowel obstructions, bronchitis, kidney stones, EDENILSON with Cpap, UTI, aura migrain es, varicosities. History of Any Multi-Drug Resistant Organisms: None Reported Past Surgical History: Breast Surgery, Ear Surgery, Hysterectomy, Joint Replacement, Orthopedic Surgery, Tonsillectomy, Tubal Ligation Additional Past Surgical History / Comment(s): Abdominal surgery/adhesions removed, skin cancer removals, L mastectomy, total hysterectomy, surgery for kidney stones, total L knee arthroplasty, bilateral feet bunionectomies, colonoscopies, several L ear surgeries/myringtotomies/tubes/patch, R ear myringotomy/tube,lazy eye repair as child, Right knee 11/01/2022. Past Anesthesia/Blood Transfusion Reactions: No Reported Reaction, Previous Problems w/ Anesthesia Additional Past Anesthesia/Blood Transfusion Reaction / Comment(s): HAD HEMORRHAGING IN THROAT W/ INTUBATION FOR EAR SURGERY-SURGERY WAS CANCELLED AT THAT TIME; POSS DIFF INTUBATING. was in ICU for 3 days. pt states her PCP has been unable to get anesthesia record from [facility]. Past Psychological History: Anxiety, Depression Smoking Status: Former smoker Past Alcohol Use History: None Reported Past Drug Use History: None Reported - Past Family History Father Family Medical History: Cancer Mother Family Medical History: Cancer Additional Family Medical History / Comment(s): Mother had lung cancer. Mother Brother(s) Family Medical History: Cancer Brother(s) Family Medical History: Cancer Medications and Allergies Home Medications Medication Instructions Recorded Confirmed Type Sertraline [Zoloft] 100 mg PO DAILY 07/29/20 03/12/24 History DULoxetine HCL [Cymbalta] 40 mg PO DAILY 03/12/24 03/12/24 History Olmesartan/Hydrochlorothiazide 1 tab PO DAILY 03/12/24 03/12/24 History [Olmesartan-Hctz 40-25 mg Tab] Allergies Allergy/AdvReac Type Severity Reaction Status Date / Time Penicillins Allergy Rash/Hives Verified 03/12/24 19:12 Sulfa (Sulfonamide Allergy Rash/Hives Verified 03/12/24 19:12 Antibiotics) Physical Exam Vitals: Vital Signs Temp Pulse Resp BP Pulse Ox 03/13/24 05:34 72 18 179/82 97 03/13/24 02:00 69 18 155/94 97 03/12/24 20:00 70 24 168/93 95 03/12/24 16:49 98.2 F 43 L 18 126/54 98 Intake and Output 03/12/24 03/13/24 03/13/24 22:59 06:59 14:59 Other: Weight 63.503 kg Results CBC & Chem 7: 03/13/24 08:28 03/13/24 08:28 Labs: Abnormal Lab Results - Last 24 Hours (Table) 03/12/24 03/12/24 Range/Units 17:58 17:58 Potassium 3.4 L (3.5-5.1) mmol/L Creatinine 1.16 H (0.52-1.04) mg/dL Glucose 131 H (74-99) mg/dL Troponin I 0.053 H* (0.000-0.034) ng/mL
[2024-03-13] MEDS: LOSARTAN 50 MG TAB PO SCH (13:06)
[2024-03-13] MEDS: SERTRALINE 100 MG TAB PO SCH (13:06)
[2024-03-13] MEDS: DULoxetine HCL 20 MG CAPSULE.DR PO SCH (13:52)
[2024-03-13] MEDS: QUEtiapine 25 MG TAB PO SCH (20:16)
[2024-03-14] MEDS: HALOPERIDOL LACTATE 5 MG/ML 1 ML VIAL IM STA (06:17)
--- NOTE | 2024-03-14 09:16 | P.DS ---
Providers Date of admission: 03/12/24 18:56 Attending physician: Margot Doan Primary care physician: Maribeth Campo [facility] Course: Discharge diagnoses; #Probable vascular dementia #Generalized weakness #Mildly elevated troponin #Hypertension Hospital course; 88-year-old female presented to the emergency department for evaluation of altered mental status. Patient's family and caregivers were present at bedside on arrival and states the patient has not been acting appropriately for few days now with symptoms worsening and they are concerned for the patient's clinical condition. Family states that this been increased memory issues/forgetfulness that has been worse over the last 4 days. Patient is a poor historian. Her past medical history is reportedly significant for left breast cancer with mastectomy, ovarian cancer total surgery/chemotherapy, removal (skin cancer, bowel obstructions, history of kidney stones, obstructive sleep apnea with CPAP, history of UTI. Initial lab work done in the emergency department was within normal limits except for an elevated troponin at 0.053. Upon seeing and talking to the patient on two different occasions this morning she appears to have probable vascular dementia, in which she has lucid intervals. Patient will be evaluated for her ability to live and care for herself at home, considering the patient lives alone. Initial lab work done in the ER showed WBC 7.4, Hgb 12.5, Hct 36.4, PLT 205; PT 10.6, INR 1.0, PTT 24.2; sodium 138, potassium 3.4, BUN 15, creatinine 1.16; troponin 0.053 Urinalysis was unremarkable EKG done in the ER showed heart rate of 79, no ST segment elevation or depression seen, no T-wave inversions seen. CT head done showed no acute intracranial process, follow-up MRI can be performed as clinically indicated; atrophy with chronic appearing periven tricular white matter ischemic changes 03/14/24 - Patient seen at bedside today. Currently awaiting evaluation from physical therapy, Occupational Therapy as well as limiting cognitive tests done by speech therapy. Patient currently lives by herself, she was companied by her neighbor who is apparently her primary medical decision-maker this most of her family lives in [place]. Per the nurses report from this morning, the neighbor stated that they are not looking to get the patient any additional placement as the facility which she currently lives has the ability to provide additional support as the patient needs it. This will be discussed again with the neighbor today to ensure that this is what her preferences, and if it is we will look to discharge the patient as soon as we are able to. Overnight patient's vitals continue to show elevated blood pressure 176/72, with a heart rate of 88, respiratory rate of 18 while saturating 90% on room air. Patient's blood pressure had been persistently elevated throughout most of the day, have discontinued the 70 mL/h of normal saline patient was receiving. Overnight per the patient's nurse she was very confused, this is after she received the 12.5 mg Seroquel, she was reported to have been attempting to leave and go to other patients rooms answer to get agitated and pushed her sitter, at that time she was given a one-time dose of 2 mg Haldol. After discussion with the patient and her neighbor, the desire is for the patient to be discharged back home where she is able to get more assistance. Upon receipt of confirmation from the neighbor, and the friend who is considered power of ip technology transactions attorney, patient is stable to be discharged. PHYSICAL EXAMINATION: GENERAL: The patient is alert and oriented x3, not in any acute distress. Well developed, well nourished. HEENT: Pupils are round and equally reacting to light. EOMI. No scleral icterus. No conjunctival pallor. Normocephalic, atraumatic. No pharyngeal erythema. No thyromegaly. CARDIOVASCULAR: S1 and S2 present. No murmurs, rubs, or gallops. PULMONARY: Chest is clear to auscultation, no wheezing or crackles. ABDOMEN: Soft, nontender, nondistended, normoactive bowel sounds. No palpable organomegaly. MUSCULOSKELETAL: No joint swelling or deformity. EXTREMITIES: No cyanosis, clubbing, or pedal edema. NEUROLOGICAL: Gross neurological examination did not reveal any focal deficits. SKIN: No rashes. Dictation was produced using [employer] dictation software. please excuse any grammatical, word or spelling errors. Dr. Kristen MD I have performed a history and physical examination and medical decision making of this patient, discussed the same with the the resident, and agree with the assessment and plan as written. I performed brief physical exam. Patient Condition at Discharge: Fair Plan - Discharge Summary Discharge Rx Participant: No New Discharge Prescriptions: Continue Sertraline [Zoloft] 100 mg PO DAILY Olmesartan/Hydrochlorothiazide [Olmesartan-Hctz 40-25 mg Tab] 1 tab PO DAILY DULoxetine HCL [Cymbalta] 40 mg PO DAILY Discharge Medication List Sertraline [Zoloft] 100 mg PO DAILY 07/29/20 [History] DULoxetine HCL [Cymbalta] 40 mg PO DAILY 03/12/24 [History] Olmesartan/Hydrochlorothiazide [Olmesartan-Hctz 40-25 mg Tab] 1 tab PO DAILY 03/12/24 [History] Follow up Appointment(s)/Referral(s): Maribeth Campo MD [Primary Care Provider] - 1-2 days
--- NOTE | 2024-03-15 21:58 | P.PN ---
Subjective Progress Note Date: 03/15/24 History of present illness; 88-year-old female presented to the emergency department for evaluation of altered mental status. Patient's family and caregivers were present at bedside on arrival and states the patient has not been acting appropriately for few days now with symptoms worsening and they are concerned for the patient's clinical condition. Family states that this been increased memory issues/forgetfulness that has been worse over the last 4 days. Patient is a poor historian. Her past medical history is reportedly significant for left breast cancer with mastectomy, ovarian cancer total s urgery/chemotherapy, removal (skin cancer, bowel obstructions, history of kidney stones, obstructive sleep apnea with CPAP, history of UTI. Initial lab work done in the emergency department was within normal limits except for an elevated troponin at 0.053. Upon seeing and talking to the patient on two different occasions this morning she appears to have probable vascular dementia, in which she has lucid intervals. Patient will be evaluated for her ability to live and care for herself at home, considering the patient lives alone. Initial lab work done in the ER showed WBC 7.4, Hgb 12.5, Hct 36.4, PLT 205; PT 10.6, INR 1.0, PTT 24.2; sodium 138, potassium 3.4, BUN 15, creatinine 1.16; tro ponin 0.053 Urinalysis was unremarkable EKG done in the ER showed heart rate of 79, no ST segment elevation or depression seen, no T-wave inversions seen. CT head done showed no acute intracranial process, follow-up MRI can be performed as clinically indicated; atrophy with chronic appearing periv entricular white matter ischemic changes Patient admitted to internal medicine service 03/15/2024 Patient evaluated in follow up resting in bed. Family friend at the bedside. Patient is pending follow up evaluation with social work for discharge planning regarding ECF. Per patient advocate patient is unsafe to return home. Discussed that patient will need to see a neurologist outpatient for further work up for diagnosis officially of dementia. Speech therapy on consultation to follow up in the AM for cognitive evaluation. Friend at bedside questioning if patient should be on the duloxetine. Upon further review of external medication history patient has active precriptions both for duloxetine and sertraline. REVIEW OF SYSTEMS: CONSTITUTIONAL: No fever, no malaise, no fatigue. HEENT: No recent visual problems or hearing problems. Denied any sore throat. CARDIOVASCULAR: No chest pain, orthopnea, PND, no palpitations, no syncope. PULMONARY: No shortness of breath, no cough, no hemoptysis. GASTROINTESTINAL: No diarrhea, no nausea, no vomiting, no abdominal pain. NEUROLOGICAL: No headaches, no weakness, no numbness. PHYSICAL EXAMINATION: GENERAL: The patient is alert and oriented x3, not in any acute distress. Well developed, well nourished. HEENT: Pupils are round and equally reacting to light. EOMI. No scleral icterus. No conjunctival pallor. Normocephalic, atraumatic. No pharyngeal erythema. No thyromegaly. CARDIOVASCULAR: S1 and S2 present. No murmurs, rubs, or gallops. PULMONARY: Chest is clear to auscultation, no wheezing or crackles. ABDOMEN: Soft, nontender, nondistended, normoactive bowel sounds. No palpable organomegaly. MUSCULOSKELETAL: No joint swelling or deformity. EXTREMITIES: No cyanosis, clubbing, or pedal edema. NEUROLOGICAL: Gross neurological examination did not reveal any focal deficits. SKIN: No rashes. Assessment and plan #Probable vascular dementia Patient has reported memory impairment by her as well as her neighbor Additionally patient shows evidence of lucid intervals Speech therapy consulted to perform mini cognitive test #Generalized weakness Patient lives alone, and has had difficulty with memory as well as lucid intervals Physical therapy and Occupational Therapy have been consulted to evaluate patient patient's ability to care for self Social work consulted to evaluate patient's living conditions #Mildly elevated troponin On arrival patient's troponin 0.053; repeat troponins ordered and currently pending If subsequent troponins remain elevated at 0.053 or greater cardiology will be consulted #Hypertension Patient takes daily hydrochlorothiazide 40-25 mg tab - discontinued Patient will be started on 100 mg daily of losartan Continue to monitor vital signs, monitor CBC, monitor CMP, continue telemetry monitoring Labs and medication were reviewed. Continue with symptomatic treatment. Resume home medication. Dictation was produced using [employer] dictation software. please excuse any grammatical, word or spelling errors. The impression and plan of care has been dictated by Maureen Nova, Nurse Practitioner as directed. Dr. Kristen MD I have performed a history and physical examination and medical decision making of this patient, discussed the same with the dictator, and agree with the dictators assessment and plan as written, documented as a scribe. Based on total visit time, I have performed more than 50% of this visit. Objective - Vital Signs Vital signs: Vital Signs Temp 98.3 F 03/15/24 14:45 Pulse 89 03/15/24 14:45 Resp 18 03/15/24 14:45 BP 149/70 03/15/24 14:45 Pulse Ox 94 L 03/15/24 14:45 FiO2 21 03/15/24 09:11 Intake & Output 03/15/24 03/15/24 03/16/24 06:59 18:59 06:59 Intake Total 354 Balance 354 Intake: Oral 354 Other: Voiding Method Toilet Toilet # Voids 2 3 - Labs CBC & Chem 7: 03/13/24 08:28 03/13/24 08:28 Assessment and Plan Time with Patient: Less than 30
--- NOTE | 2024-03-16 14:29 | P.PN ---
Subjective Progress Note Date: 03/16/24 88-year-old female presented to the emergency department for evaluation of altered mental status. Patient's family and caregivers were present at bedside on arrival and states the patient has not been acting appropriately for few days now with symptoms worsening and they are concerned for the patient's clinical condition. Family states that this been increased memory issues/forgetfulness that has been worse over the last 4 days. Patient is a poor historian. Her past medical history is reportedly significant for left breast cancer with mastectomy, ovarian cancer total surgery/chemotherapy, removal (skin cancer, bowel obstructions, history of kidney stones, obstructive sleep apnea with CPAP, history of UTI. Initial lab work done in the emergency department was within normal limits except for an elevated troponin at 0.053. Upon seeing and talking to the patient on two different occasions this morning she appears to have probable vascular dementia, in which she has lucid intervals. Patient will be evaluated for her ability to live and care for herself at home, considering the patient lives alone. Initial lab work done in the ER showed WBC 7.4, Hgb 12.5, Hct 36.4, PLT 205; PT 10.6, INR 1.0, PTT 24.2; sodium 138, potassium 3.4, BUN 15, creatinine 1.16; troponin 0.053 Urinalysis was unremarkable EKG done in the ER showed heart rate of 79, no ST segment elevation or depression seen, no T-wave inversions seen. CT head done showed no acute intracranial process, follow-up MRI can be performed as clinically indicated; atrophy with chronic appearing periventricular white matter ischemic changes Patient admitted to internal medicine service 03/15/2024 Patient evaluated in follow up resting in bed. Family friend at the bedside. Patient is pending follow up evaluation with social work for discharge planning regarding ECF. Per patient advocate patient is unsafe to return home. Discussed that patient will need to see a neurologist outpatient for further work up for diagnosis officially of dementia. Speech therapy on consultation to follow up in the AM for cognitive evaluation. Friend at bedside questioning if patient should be on the duloxetine. Upon further review of external medication history patient has active precriptions both for duloxetine and sertraline. 03/16/24 - Patient seen at bedside today. Patient is pending follow-up evaluation with social work for discharge planning. Discussed with the patient the need to see neurologist outpatient for further workup and diagnosis officially of dementia vital signs today showed patient's blood pressure 137/73, heart rate 72, respiratory rate of 18, saturation of 94% on room air. Per speech therapy consultation to complete a mini cognitive exam the patient scored a 10/30 on the [facility] mental status exam which places her in the likely range for possible dementia, and recommends follow-up with speech- language pathologist post discharge pending her diagnosis, noting their discharge recommendation for the patient is in extended-care facility. Additionally, physical therapy completed their evaluation of the patient stating that their discharge recommendation would be subacute rehabilitation with 24/ supervision. Patient is discharged to extended-care facility is currently in the midst of being processed, shoe parts caser are handling the details with the patient advocate. Most likely tomorrow. REVIEW OF SYSTEMS: CONSTITUTIONAL: No fever, no malaise, no fatigue. HEENT: No recent visual problems or hearing problems. Denied any sore throat. CARDIOVASCULAR: No chest pain, orthopnea, PND, no palpitations, no syncope. PULMONARY: No shortness of breath, no cough, no hemoptysis. GASTROINTESTINAL: No diarrhea, no nausea, no vomiting, no abdominal pain. NEUROLOGICAL: No headaches, no weakness, no numbness. PHYSICAL EXAMINATION: GENERAL: The patient is alert and oriented x3, not in any acute distress. Well developed, well nourished. HEENT: Pupils are round and equally reacting to light. EOMI. No scleral icterus. No conjunctival pallor. Normocephalic, atraumatic. No pharyngeal erythema. No thyromegaly. CARDIOVASCULAR: S1 and S2 present. No murmurs, rubs, or gallops. PULMONARY: Chest is clear to auscultation, no wheezing or crackles. ABDOMEN: Soft, nontender, nondistended, normoactive bowel sounds. No palpable organomegaly. MUSCULOSKELETAL: No joint swelling or deformity. EXTREMITIES: No cyanosis, clubbing, or pedal edema. NEUROLOGICAL: Gross neurological examination did not reveal any focal deficits. SKIN: No rashes. Assessment and plan #Probable vascular dementia Patient has reported memory impairment by her as well as her neighbor Additionally patient shows evidence of lucid intervals Speech therapy consulted to perform mini cognitive test 12.5 mg nightly of Seroquel added for the patient's nightly agitation Mini cognitive exam completed by speech-language pathologist in which the patient scored 10/30 on the [facility] mental status exam #Generalized weakness Patient lives alone, and has had difficulty with memory as well as lucid intervals Physical therapy and Occupational Therapy have been consulted to evaluate patient patient's ability to care for self Social work consulted to evaluate patient's living conditions #Mildly elevated troponin On arrival patient's troponin 0.053; repeat troponins ordered and currently pending If subsequent troponins remain elevated at 0.053 or greater cardiology will be consulted #Hypertension Patient takes daily hydrochlorothiazide 40-25 mg tab - discontinued Patient will be started on 100 mg daily of losartan #Anxiety Patient to continue her 40 mg daily of Cymbalta Continue to monitor vital signs. Labs and medication were reviewed. Continue with symptomatic treatment. Resume home medication. Dictation was produced using [employer] dictation software. please excuse any grammatical, word or spelling errors. Dr. Kristen MD I have performed a history and physical examination and medical decision making of this patient, discussed the same with the the resident, and agree with the assessment and plan as written. I performed brief physical exam. Objective - Vital Signs Vital signs: Vital Signs Temp 97.6 F 03/16/24 07:00 Pulse 72 03/16/24 07:00 Resp 18 03/16/24 07:00 BP 137/73 03/16/24 07:00 Pulse Ox 94 L 03/16/24 07:00 FiO2 21 03/15/24 09:11 Intake & Output 03/15/24 03/16/24 03/16/24 18:59 06:59 18:59 Intake Total 354 Balance 354 Intake: Oral 354 Other: Voiding Method Toilet # Voids 3 # Bowel Movements 0 - Labs CBC & Chem 7: 03/13/24 08:28 03/13/24 08:28
[2024-03-17] MEDS: PANTOPRAZOLE 40 MG TABLET PO SCH (11:44)
--- NOTE | 2024-03-17 13:32 | P.PN ---
Subjective Progress Note Date: 03/17/24 88-year-old female presented to the emergency department for evaluation of altered mental status. Patient's family and caregivers were present at bedside on arrival and states the patient has not been acting appropriately for few days now with symptoms worsening and they are concerned for the patient's clinical condition. Family states that this been increased memory issues/forgetfulness that has been worse over the last 4 days. Patient is a poor historian. Her past medical history is reportedly significant for left breast cancer with mastectomy, ovarian cancer total surgery/chemotherapy, removal (skin cancer, bowel obstructions, history of kidney stones, obstructive sleep apnea with CPAP, history of UTI. Initial lab work done in the emergency department was within normal limits except for an elevated troponin at 0.053. Upon seeing and talking to the patient on two different occasions this morning she appears to have probable vascular dementia, in which she has lucid intervals. Patient will be evaluated for her ability to live and care for herself at home, considering the patient lives alone. Initial lab work done in the ER showed WBC 7.4, Hgb 12.5, Hct 36.4, PLT 205; PT 10.6, INR 1.0, PTT 24.2; sodium 138, potassium 3.4, BUN 15, creatinine 1.16; troponin 0.053 Urinalysis was unremarkable EKG done in the ER showed heart rate of 79, no ST segment elevation or depression seen, no T-wave inversions seen. CT head done showed no acute intracranial process, follow-up MRI can be performed as clinically indicated; atrophy with chronic appearing periventricular white matter ischemic changes Patient admitted to internal medicine service 03/15/2024 Patient evaluated in follow up resting in bed. Family friend at the bedside. Patient is pending follow up evaluation with social work for discharge planning regarding ECF. Per patient advocate patient is unsafe to return home. Discussed that patient will need to see a neurologist outpatient for further work up for diagnosis officially of dementia. Speech therapy on consultation to follow up in the AM for cognitive evaluation. Friend at bedside questioning if patient should be on the duloxetine. Upon further review of external medication history patient has active precriptions both for duloxetine and sertraline. 03/16/24 - Patient seen at bedside today. Patient is pending follow-up evaluation with social work for discharge planning. Discussed with the patient the need to see neurologist outpatient for further workup and diagnosis officially of dementia vital signs today showed patient's blood pressure 137/73, heart rate 72, respiratory rate of 18, saturation of 94% on room air. Per speech therapy consultation to complete a mini cognitive exam the patient scored a 10/30 on the [facility] mental status exam which places her in the likely range for possible dementia, and recommends follow-up with speech- language pathologist post discharge pending her diagnosis, noting their discharge recommendation for the patient is in extended-care facility. Additionally, physical therapy completed their evaluation of the patient stating that their discharge recommendation would be subacute rehabilitation with 07/01 supervision. Patient is discharged to extended-care facility is currently in the midst of being processed, disease case manager are handling the details with the patient advocate. Most likely tomorrow. 03/17/24 - Patient seen at bedside today. Discussed the patient's case with her power of corporate associate attorney yesterday. Establish the desire for further placement at a memory care location at some point down the line, stating however if absolute necessary the patient can return to where she had previously been living with additional support to help care for her. Physical therapy as well as speech t herapies recommendations are for placement at a facility with rehabilitation. Occupational Therapy saw the patient today and they recommended 24-hour supervision subacute rehab upon discharge. Currently awaiting final determination/approval from classification case manager. Understood due to insurance purposes patient unable to go to [facility], will try for [facility] or possibly [facility]. Awaiting further update via classification case manager. REVIEW OF SYSTEMS: CONSTITUTIONAL: No fever, no malaise, no fatigue. HEENT: No recent visual problems or hearing problems. Denied any sore throat. CARDIOVASCULAR: No chest pain, orthopnea, PND, no palpitations, no syncope. PULMONARY: No shortness of breath, no cough, no hemoptysis. GASTROINTESTINAL: No diarrhea, no nausea, no vomiting, no abdominal pain. NEUROLOGICAL: No headaches, no weakness, no numbness. PHYSICAL EXAMINATION: GENERAL: The patient is alert and oriented x3, not in any acute distress. Well developed, well nourished. HEENT: Pupils are round and equally reacting to light. EOMI. No scleral icterus. No conjunctival pallor. Normocephalic, atraumatic. No pharyngeal erythema. No thyromegaly. CARDIOVASCULAR: S1 and S2 present. No murmurs, rubs, or gallops. PULMONARY: Chest is clear to auscultation, no wheezing or crackles. ABDOMEN: Soft, nontender, nondistended, normoactive bowel sounds. No palpable organomegaly. MUSCULOSKELETAL: No joint swelling or deformity. EXTREMITIES: No cyanosis, clubbing, or pedal edema. NEUROLOGICAL: Gross neurological examination did not reveal any focal deficits. SKIN: No rashes. Assessment and plan #Probable vascular dementia Patient has reported memory impairment by her as well as her neighbor Additionally patient shows evidence of lucid intervals Speech therapy consulted to perform mini cognitive test 12.5 mg nightly of Seroquel added for the patient's nightly agitation Mini cognitive exam completed by speech-language pathologist in which the patient scored 10/30 on the [facility] mental status exam #Generalized weakness Patient lives alone, and has had difficulty with memory as well as lucid intervals Physical therapy and Occupational Therapy have been consulted to evaluate patient patient's ability to care for self Social work consulted to evaluate patient's living conditions #Mildly elevated troponin On arrival patient's troponin 0.053; repeat troponins ordered and currently pending If subsequent troponins remain elevated at 0.053 or greater cardiology will be consulted #Hypertension Patient takes daily hydrochlorothiazide 40-25 mg tab - discontinued Patient will be started on 100 mg daily of losartan #Anxiety Patient to continue her 40 mg daily of Cymbalta #GERD - Patient started on 40 mg Protonix daily with breakfast Continue to monitor vital signs. Labs and medication were reviewed. Continue with symptomatic treatment. Resume home medication. Dictation was produced using [employer] dictation software. please excuse any grammatical, word or spelling errors. Objective - Vital Signs Vital signs: Vital Signs Temp 98.3 F 03/17/24 07:00 Pulse 80 03/17/24 07:00 Resp 16 03/17/24 07:00 BP 155/65 03/17/24 07:00 Pulse Ox 95 03/17/24 08:11 FiO2 21 03/15/24 09:11 Intake & Output 03/16/24 03/17/24 03/17/24 18:59 06:59 18:59 Intake Total 118 360 Balance 118 360 Intake: Oral 118 360 Other: Voiding Method Toilet # Voids 1 3 # Bowel Movements 1 - Labs CBC & Chem 7: 03/13/24 08:28 03/13/24 08:28
--- NOTE | 2024-03-18 15:09 | P.PN ---
Subjective Progress Note Date: 03/18/24 88-year-old female presented to the emergency department for evaluation of altered mental status. Patient's family and caregivers were present at bedside on arrival and states the patient has not been acting appropriately for few days now with symptoms worsening and they are concerned for the patient's clinical condition. Family states that this been increased memory issues/forgetfulness that has been worse over the last 4 days. Patient is a poor historian. Her past medical history is reportedly significant for left breast cancer with mastectomy, ovarian cancer total surgery/chemotherapy, removal (skin cancer, bowel obstructions, history of kidney stones, obstructive sleep apnea with CPAP, history of UTI. Initial lab work done in the emergency department was within normal limits except for an elevated troponin at 0.053. Upon seeing and talking to the patient on two different occasions this morning she appears to have probable vascular dementia, in which she has lucid intervals. Patient will be evaluated for her ability to live and care for herself at home, considering the patient lives alone. Initial lab work done in the ER showed WBC 7.4, Hgb 12.5, Hct 36.4, PLT 205; PT 10.6, INR 1.0, PTT 24.2; sodium 138, potassium 3.4, BUN 15, creatinine 1.16; troponin 0.053 Urinalysis was unremarkable EKG done in the ER showed heart rate of 79, no ST segment elevation or depression seen, no T-wave inversions seen. CT head done showed no acute intracranial process, follow-up MRI can be performed as clinically indicated; atrophy with chronic appearing periventricular white matter ischemic changes Patient admitted to internal medicine service 03/15/2024 Patient evaluated in follow up resting in bed. Family friend at the bedside. Patient is pending follow up evaluation with social work for discharge planning regarding ECF. Per patient advocate patient is unsafe to return home. Discussed that patient will need to see a neurologist outpatient for further work up for diagnosis officially of dementia. Speech therapy on consultation to follow up in the AM for cognitive evaluation. Friend at bedside questioning if patient should be on the duloxetine. Upon further review of external medication history patient has active precriptions both for duloxetine and sertraline. 03/16/24 - Patient seen at bedside today. Patient is pending follow-up evaluation with social work for discharge planning. Discussed with the patient the need to see neurologist outpatient for further workup and diagnosis officially of dementia vital signs today showed patient's blood pressure 137/73, heart rate 72, respiratory rate of 18, saturation of 94% on room air. Per speech therapy consultation to complete a mini cognitive exam the patient scored a 10/30 on the [facility] mental status exam which places her in the likely range for possible dementia, and recommends follow-up with speech- language pathologist post discharge pending her diagnosis, noting their discharge recommendation for the patient is in extended-care facility. Additionally, physical therapy completed their evaluation of the patient stating that their discharge recommendation would be subacute rehabilitation with 07/01 supervision. Patient is discharged to extended-care facility is currently in the midst of being processed, correctional counselor/case manager are handling the details with the patient advocate. Most likely tomorrow. 03/17/24 - Patient seen at bedside today. Discussed the patient's case with her power of insurance defense attorney yesterday. Establish the desire for further placement at a memory care location at some point down the line, stating however if absolute necessary the patient can return to where she had previously been living with additional support to help care for her. Physical therapy as well as speech t herapies recommendations are for placement at a facility with rehabilitation. Occupational Therapy saw the patient today and they recommended 24-hour supervision subacute rehab upon discharge. Currently awaiting final determination/approval from case aide. Understood due to insurance purposes patient unable to go to [facility], will try for [facility] or possibly [facility]. Awaiting further update via case aide. 03/18/24 - Patient seen at bedside today. Patient is feeling the same, just waiting for placement in memory care unit. Was brought to my attention yesterday via the patient's power of insurance defense attorney that he had been told recently from the facility at which she is living currently (prior to arriving in the hospital) that the patient has had multiple episodes of feeling walked out of her apartment walking around aimlessly barefoot, as well as driving and becoming alarmed as she was getting lost and unable to find her way back. This patient should not be driving a vehicle under any circumstances, she is unable to do so safely. Occupational and physical therapy will continue to see the patient daily. Per case management, the patient does not meet needs for rehab at [facility]. The power of insurance defense attorney is arranging a room at [facility] memory care unit. Patient will be unable to take occupancy until 103 at the earliest so will remain inpatient until the room is all set. REVIEW OF SYSTEMS: CONSTITUTIONAL: No fever, no malaise, no fatigue. HEENT: No recent visual problems or hearing problems. Denied any sore throat. CARDIOVASCULAR: No chest pain, orthopnea, PND, no palpitations, no syncope. PULMONARY: No shortness of breath, no cough, no hemoptysis. GASTROINTESTINAL: No diarrhea, no nausea, no vomiting, no abdominal pain. NEUROLOGICAL: No headaches, no weakness, no numbness. PHYSICAL EXAMINATION: GENERAL: The patient is alert and oriented x3, not in any acute distress. Well developed, well nourished. HEENT: Pupils are round and equally reacting to light. EOMI. No scleral icterus. No conjunctival pallor. Normocephalic, atraumatic. No pharyngeal erythema. No thyromegaly. CARDIOVASCULAR: S1 and S2 present. No murmurs, rubs, or gallops. PULMONARY: Chest is clear to auscultation, no wheezing or crackles. ABDOMEN: Soft, nontender, nondistended, normoactive bowel sounds. No palpable organomegaly. MUSCULOSKELETAL: No joint swelling or deformity. EXTREMITIES: No cyanosis, clubbing, or pedal edema. NEUROLOGICAL: Gross neurological examination did not reveal any focal deficits. SKIN: No rashes. Assessment and plan #Probable vascular dementia Patient has reported memory impairment by her as well as her neighbor Additionally patient shows evidence of lucid intervals Speech therapy consulted to perform mini cognitive test 12.5 mg nightly of Seroquel added for the patient's nightly agitation Mini cognitive exam completed by speech-language pathologist in which the patient scored 10/30 on the [facility] mental status exam #Generalized weakness Patient lives alone, and has had difficulty with memory as well as lucid intervals Physical therapy and Occupational Therapy have been consulted to evaluate patient patient's ability to care for self Social work consulted to evaluate patient's living conditions #Mildly elevated troponin On arrival patient's troponin 0.053; repeat troponins ordered and currently pending If subsequent troponins remain elevated at 0.053 or greater cardiology will be consulted #Hypertension Patient takes daily hydrochlorothiazide 40-25 mg tab - discontinued Patient will be started on 100 mg daily of losartan #Anxiety Patient to continue her 40 mg daily of Cymbalta #GERD - Patient started on 40 mg Protonix daily with breakfast GI prophylaxis: 40 mg Protonix daily Continue to monitor vital signs. Labs and medication were reviewed. Continue with symptomatic treatment. Resume home medication. Dictation was produced using [employer] dictation software. please excuse any grammatical, word or spelling errors. Dr. Kristen MD I have performed a history and physical examination and medical decision making of this patient, discussed the same with the the resident, and agree with the assessment and plan as written. I performed brief physical exam. Objective - Vital Signs Vital signs: Vital Signs Temp 97.9 F 03/18/24 07:00 Pulse 62 03/18/24 07:00 Resp 16 03/18/24 07:00 BP 137/72 03/18/24 07:00 Pulse Ox 97 03/18/24 07:00 FiO2 21 03/15/24 09:11 Intake & Output 03/17/24 03/18/24 03/18/24 18:59 06:59 18:59 Intake Total 354 Output Total 1 Balance 353 Intake: Oral 354 Output: Stool 1 Other: Voiding Method Toilet # Voids 3 2 - Labs CBC & Chem 7: 03/13/24 08:28 03/13/24 08:28
[2024-03-19 07:40] VITALS: RESP 16
[2024-03-19 09:25] VITALS: BMI 24.0
--- NOTE | 2024-03-19 10:45 | P.DS ---
Providers Date of admission: 03/12/24 18:56 Expected date of discharge: 03/19/24 Attending physician: Margot Doan Primary care physician: Maribeth Campo Hospital Course: final diagnosis #Probable vascular dementia #Generalized weakness #Mildly elevated troponin, ruled out ACS #Hypertension Discharge disposition Patient is being discharged in a stable condition with guarded prognosis to [facility] unit. Patient will follow-up with Dr. Campo in the outpatient setting upon discharge. Patient is to continue with current medications as prescribed. Total time taken is greater than 35 minutes. Hospital course 88-year-old female presented to the emergency department for evaluation of altered mental status. Patient's family and caregivers were present at bedside on arrival and states the patient has not been acting appropriately for few days now with symptoms worsening and they are concerned for the patient's clinical condition. Family states that this been increased memory issues/forgetfulness that has been worse over the last 4 days. Patient is a poor historian. Her past medical history is reportedly significant for left breast cancer with mastectomy, ovarian cancer total surgery/chemotherapy, removal (skin cancer, bowel obstructions, history of kidney stones, obstructive sleep apnea with CPAP, history of UTI. Initial lab work done in the emergency department was within normal limits except for an elevated troponin at 0.053. Upon seeing and talking to the patient on two different occasions this morning she appears to have probable vascular dementia, in which she has lucid intervals. Patient will be evaluated for her ability to live and care for herself at home, considering the patient lives alone. Initial lab work done in the ER showed WBC 7.4, Hgb 12.5, Hct 36.4, PLT 205; PT 10.6, INR 1.0, PTT 24.2; sodium 138, potassium 3.4, BUN 15, creatinine 1.16; troponin 0.053 Urinalysis was unremarkable EKG done in the ER showed heart rate of 79, no ST segment elevation or depression seen, no T-wave inversions seen. CT head done showed no acute intracranial process, follow-up MRI can be performed as clinically indicated; atrophy with chronic appearing periventricular white matter ischemic changes 03/19/2024 Patient is seen in follow-up today has been evaluated by physical therapy and social work following and working on discharge planning to the memory unit at [facility]. Family working on transferring all of her belongings over to the memory unit prior to discharge. Per nursing staff patient is tolerating diet with no reported nausea or vomiting and patient is compliant with medications. Currently no reports of chest pain, shortness of breath, or palpitations. Patient is afebrile. No reports of nausea or vomiting and patient is tolerating diet. Patient will be going to [facility] unit today. Increased risk for readmissions given patient's most likely progressing dementia. Physical exam: Gen: This is a 88-year-old female who is awake, alert and oriented x 1, well- developed, thin build, elderly appearing HEENT: Head is atraumatic, normocephalic. Pupils equal, round. Sclerae is anicteric. NECK: Supple. No JVD. No lymphadenopathy. No thyromegaly. LUNGS: Clear to auscultation. No wheezes or rhonchi. No intercostal retractions. HEART: Regular rate and rhythm. No murmur. ABDOMEN: Soft. Bowel sounds are present. No masses. No tenderness. EXTREMITIES: No pedal edema. No calf tenderness. NEUROLOGICAL: Patient is awake, alert and oriented x3. Cranial nerves 2 through 12 are grossly intact. Please refer to medication reconciliation sheet for a list of medications. The impression and plan of care has been dictated by Sissy Bowles, Nurse Practitioner as directed. Dr. Kristen MD I have performed a history and examination and MDM of this patient, discussed the same with the dictator, and agree with the dictator's assessment and plan as written ,documented as a scribe. Based on total visit time, I have performed more than 50% of the visit. Patient Condition at Discharge: Fair Plan - Discharge Summary Discharge Rx Participant: No New Discharge Prescriptions: Continue Sertraline [Zoloft] 100 mg PO DAILY Olmesartan/Hydrochlorothiazide [Olmesartan-Hctz 40-25 mg Tab] 1 tab PO DAILY DULoxetine HCL [Cymbalta] 40 mg PO DAILY Discharge Medication List Sertraline [Zoloft] 100 mg PO DAILY 07/29/20 [History] DULoxetine HCL [Cymbalta] 40 mg PO DAILY 03/12/24 [History] Olmesartan/Hydrochlorothiazide [Olmesartan-Hctz 40-25 mg Tab] 1 tab PO DAILY 03/12/24 [History] Follow up Appointment(s)/Referral(s): Maribeth Campo MD [Primary Care Provider] - 1-2 days Activity/Diet/Wound Care/Special Instructions: Patient is returning to [facility] Follow-up with primary care provider on discharge Continue regular diet Continue taking medications as prescribed Discharge Disposition: TRANSFER TO SNF/ECF
[2024-03-19 14:40] VITALS: BP 113/81; PULSE 83; TEMP 98.3
== END 2024-03-19 15:20 ==
LOC: EC 16:42 → 3SCARD 18:56 → 6NMEDSUR 03-13 14:11
PROVIDERS: ADMIT Hospitalist; ATTEND Hospitalist
DX: M62.81 Muscle weakness (generalized) (principal); R79.89 Other specified abnormal findings of blood chemistry; I10 Essential (primary) hypertension; F32.A Depression, unspecified; F41.9 Anxiety disorder, unspecified; Z79.899 Other long term (current) drug therapy; Z88.2 Allergy status to sulfonamides; Z88.0 Allergy status to penicillin; Z87.891 Personal history of nicotine dependence; Z80.1 Family history of malignant neoplasm of trachea, bronchus and lung; Z85.828 Personal history of other malignant neoplasm of skin; Z85.3 Personal history of malignant neoplasm of breast; Z90.12 Acquired absence of left breast and nipple; Z87.440 Personal history of urinary (tract) infections; Z87.442 Personal history of urinary calculi; Z85.43 Personal history of malignant neoplasm of ovary; G47.33 Obstructive sleep apnea (adult) (pediatric)
CPT/HCPCS: 96361 ×2; 96360; 99285; 36415; 94760 ×3; 93005; 97530; 97161; 97166; 92523; 83880; 80053 ×2; 82140; 83605; 83735 ×2; 84100 ×2; 84443; 84484 ×2; 85025 ×2; 85610; 85730; 81003; 70450; G0378 ×8; G0480; 80320

== ENCOUNTER 2024-06-04 20:30 | Observation (INO) | payer MEDICARE ==
--- NOTE | 2024-06-04 21:42 | ED ---
General Adult HPI - General Chief complaint: Nausea/Vomiting/Diarrhea Stated complaint: Nausea Vomiting Time Seen by Provider: 06/04/24 20:51 Source: patient Mode of arrival: EMS Limitations: no limitations - History of Present Illness Initial comments: Marilee is an 88yo F who presents to the ER via EMS [facility] for evaluation of nausea, vomiting, diarrhea and diffuse abdominal pain that has been ongoing throughout the day today. 7 episodes of non-bloody non-bilious vomiting, multiple episodes of watery non-bloody diarrhea. No fevers or chills. No known sick contacts. Patient suspects it is due to something she ate though her caregiver is not aware of any other patients ill at the facility. - Related Data Home Medications Medication Instructions Recorded Confirmed Sertraline [Zoloft] 100 mg PO DAILY 07/29/20 03/12/24 DULoxetine HCL [Cymbalta] 40 mg PO DAILY 03/12/24 03/12/24 Olmesartan/Hydrochlorothiazide 1 tab PO DAILY 03/12/24 03/12/24 [Olmesartan-Hctz 40-25 mg Tab] Previous Rx's Medication Instructions Recorded Fluticasone Nasal Chunky [Flonase 1 spray EA NOSTRIL DAILY 30 Days 03/19/24 Nasal Chunky] #16 gm Fluticasone Propionate 1 puff INHALATION BID #10.6 gm 03/19/24 [Fluticasone Propionate Hfa 44 MCG (Inhaler)] Pantoprazole Sodium [Protonix] 40 mg PO DAILY #30 tab 03/19/24 Allergies Allergy/AdvReac Type Severity Reaction Status Date / Time Penicillins Allergy Rash/Hives Verified 06/04/24 20:35 Sulfa (Sulfonamide Allergy Rash/Hives Verified 06/04/24 20:35 Antibiotics) Review of Systems ROS Statement: Those systems with pertinent positive or pertinent negative responses have been documented in the HPI. ROS Other: All systems not noted in ROS Statement are negative. Past Medical History Past Medical History: Hypertension Additional Past Medical History / Comment(s): L breast cancer with mastectomy, ovarian cancer with total hysterectomy/chemotherapy, skin cancer with removals, bowel obstructions, bronchitis, kidney stones, EDENILSON with Cpap, UTI, aura migraines, varicosities. History of Any Multi-Drug Resistant Organisms: None Reported Past Surgical History: Breast Surgery, Ear Surgery, Hysterectomy, Joint Replacement, Orthopedic Surgery, Tonsillectomy, Tubal Ligation Additional Past Surgical History / Comment(s): Abdominal surgery/adhesions removed, skin cancer removals, L mastectomy, total hysterectomy, surgery for kidney stones, total L knee arthroplasty, bilateral feet bunionectomies, colonoscopies, several L ear surgeries/myringtotomies/tubes/patch, R ear myringotomy/tube,lazy eye repair as child, Right knee 11/01/2022. Past Anesthesia/Blood Transfusion Reactions: No Reported Reaction, Previous Problems w/ Anesthesia Additional Past Anesthesia/Blood Transfusion Reaction / Comment(s): HAD HEMORRHAGING IN THROAT W/ INTUBATION FOR EAR SURGERY-SURGERY WAS CANCELLED AT THAT TIME; POSS DIFF INTUBATING. was in ICU for 3 days. pt states her PCP has been unable to get anesthesia record from [facility]. Past Psychological History: Anxiety, Depression Smoking Status: Former smoker Past Alcohol Use History: None Reported Past Drug Use History: None Reported - Past Family History Father Family Medical History: Cancer Mother Family Medical History: Cancer Additional Family Medical History / Comment(s): Mother had lung cancer. Mother Brother(s) Family Medical History: Cancer Brother(s) Family Medical History: Cancer General Exam - General Exam Comments Initial Comments: Physical Exam GENERAL: Patient is well-developed and well-nourished. Patient is nontoxic and well-hydrated and is in no distress. HENT: Normocephalic, Atraumatic. EYES: PERRL, EOMI PULMONARY: Unlabored respirations. CARDIOVASCULAR: RRR Warm and well perfused extremities ABDOMEN: Diffuse tenderness, no peritoneal signs or guarding SKIN: No rashes or bruising : Deferred NEUROLOGIC: Alert and oriented Normal speech Normal gait MUSCULOSKELETAL: Moving all extremities with no apparent injury PSYCHIATRIC: No SI/HI Limitations: no limitations Course Vital Signs 06/04/24 06/05/24 06/05/24 20:32 02:29 06:31 Temperature 97.8 F 98.1 F Pulse Rate 88 94 75 Respiratory 18 18 16 Rate Blood Pressure 181/76 162/72 102/39 O2 Sat by Pulse 98 98 98 Oximetry Medical Decision Making - Medical Decision Making Was pt. sent in by a medical professional or institution (, PA, BUILDING MOVER, urgent care, hospital, or senior care...) When possible be specific @ -Yes sent from senior care Did you speak to anyone other than the patient for history (EMS, parent, family, police, friend...)? What history was obtained from this source @ -Son Did you review nursing and triage notes (agree or disagree)? Why? @ -I reviewed and agree with nursing and triage notes Were old charts reviewed (outside hosp., previous admission, EMS record, old EKG, old radiological studies, urgent care reports/EKG's, senior care records)? Report findings @ -Yes previous labs were reviewed Differential Diagnosis (chest pain, altered mental status, abdominal pain women, abdominal pain men, vaginal bleeding, weakness, fever, dyspnea, syncope, headache, dizziness, GI bleed, back pain, seizure, CVA, palpatations, mental health)? @ -Differential Abdominal Pain Women: Appendicitis, Cholecystitis, diverticulosis, ischemic bowel, pancreatitis, hepatitis, UTI, gastroenteritis, AAA, incarcerated hernia, bowel obstruction, constipation, inflammatory bowel, hepatitis, peptic ulcer disease, splenic infarction, perforated viscus, vulvitis, ovarian torsion, PID, kidney stone, placenta abruption, this is not meant to be an all-inclusive list EKG interpreted by me (3pts min.). @ -As above X-rays interpreted by me (1pt min.). @ -None done CT interpreted by me (1pt min.). @ -No free air and CT abdomen U/S interpreted by me (1pt. min.). @ -None done What testing was considered but not performed or refused? (CT, X-rays, U/S, l abs)? Why? @ -None What meds were considered but not given or refused? Why? @ -None Did you discuss the management of the patient with other professionals (professionals i.e. , PA, BUILDING MOVER, lab, RT, psych nurse, high school social studies teacher, soaking pits supervisor, teacher, environmental conservation officer, rehabilitation caseworker)? Give summary @ -No Was smoking cessation discussed for >3mins.? @ -No Was critical care preformed (if so, how long)? @ -No Were there social determinants of health that impacted care today? How? (Homelessness, low income, unemployed, alcoholism, drug addiction, transportation, low edu. Level, literacy, decrease access to med. care, halfway, rehab)? @ -No Was there de-escalation of care discussed even if they declined (Discuss DNR or withdrawal of care, Hospice)? DNR status @ -No What co-morbidities impacted this encounter? (DM, HTN, Smoking, COPD, CAD, Cancer, CVA, ARF, Chemo, Hep., AIDS, mental health diagnosis, sleep apnea, morbid obesity)? @ -Dementia Was patient admitted / discharged? Hospital course, mention meds given and route, prescriptions, significant lab abnormalities, going to OR and other pertinent info. @ -Admit Patient was seen and evaluated history is obtained from patient and son at bedside. Elderly patient with nausea vomiting diarrhea she appears dehydrated. On labs she had mild MADHAVI and some anemia which was new. Patient was treated with IV fluids given her advanced age and need for care she will be placed in observation. Undiagnosed new problem with uncertain prognosis? @ -No Drug Therapy requiring intensive monitoring for toxicity (Heparin, Nitro, Insulin, Cardizem)? @ -No Were any procedures done? @ -No Diagnosis/symptom? @ -Dehydration diarrhea Acute, or Chronic, or Acute on Chronic? @ -Acute Uncomplicated (without systemic symptoms) or Complicated (systemic symptoms)? @ -Default Side effects of treatment? @ -No Exacerbation, Progression, or Severe Exacerbation? @ -No Poses a threat to life or bodily function? How? (Chest pain, USA, DC, pneumonia, PE, COPD, DKA, ARF, appy, cholecystitis, CVA, Diverticulitis, Homicidal, Suicidal, threat to staff... and all critical care pts) @ -No - Lab Data Result diagrams: 06/04/24 21:45 06/04/24 21:45 Lab Results 06/04/24 06/04/24 06/04/24 Range/Units 21:45 21:45 21:45 WBC 13.3 H (3.8-10.6) k/uL RBC 2.79 L (3.80-5.40) m/uL Hgb 9.0 L (11.4-16.0) gm/dL Hct 26.6 L (34.0-46.0) % MCV 95.3 (80.0-100.0) fL MCH 32.3 (25.0-35.0) pg MCHC 33.9 (31.0-37.0) g/dL RDW 12.5 (11.5-15.5) % Plt Count 239 (150-450) k/uL MPV 7.2 Neutrophils % 94 % Lymphocytes % 2 % Monocytes % 3 % Eosinophils % 1 % Basophils % 0 % Neutrophils # 12.4 H (1.3-7.7) k/uL Lymphocytes # 0.3 L (1.0-4.8) k/uL Monocytes # 0.4 (0-1.0) k/uL Eosinophils # 0.1 (0-0.7) k/uL Basophils # 0.0 (0-0.2) k/uL Sodium 140 (137-145) mmol/L Potassium 3.7 (3.5-5.1) mmol/L Chloride 112 H (98-107) mmol/L Carbon Dioxide 19 L (22-30) mmol/L Anion Gap 9 mmol/L BUN 36 H (7-17) mg/dL Creatinine 1.22 H (0.52-1.04) mg/dL Est GFR (CKD-EPI)AfAm 46 (>60 ml/min/1.73 sqM) Est GFR (CKD-EPI)NonAf 40 (>60 ml/min/1.73 sqM) Glucose 175 H (74-99) mg/dL Plasma Lactic Acid Robbi 2.0 (0.7-2.0) mmol/L Calcium 9.0 (8.4-10.2) mg/dL Total Bilirubin 1.0 (0.2-1.3) mg/dL AST 25 (14-36) U/L ALT 19 (4-34) U/L Alkaline Phosphatase 104 (38-126) U/L Total Protein 6.8 (6.3-8.2) g/dL Albumin 4.2 (3.5-5.0) g/dL Lipase 23 (23-300) U/L Disposition Clinical Impression: Dehydration Disposition: ADMITTED IP TO THIS HOSP Condition: Stable Is patient prescribed a controlled substance at d/c from ED?: No Referrals: Maribeth Campo MD [Primary Care Provider] - 1-2 days
[2024-06-04] MEDS: FAMOTIDINE 20 MG/2 ML VIAL IV STA (21:56)
[2024-06-04] MEDS: ONDANSETRON 4 MG/2 ML VIAL IVP STA (21:56)
[2024-06-04] MEDS: MORPHINE SULFATE 4 MG/ML SYRINGE IVP STA (21:56)
[2024-06-04] MEDS: SODIUM CHLORIDE 0.9% 1,000 ML IV STA (21:57)
[2024-06-04 23:45] LABS: Basophils % (A) 0 %; Eosinophils # (A) 0.1 k/uL (0-0.7); Eosinophils % (A) 1 %; HCT 26.6 % (34.0-46.0); Lymphocytes # (A) 0.3 k/uL (1.0-4.8); Lymphocytes % (A) 2 %; MCH 32.3 pg (25.0-35.0); MCHC 33.9 g/dL (31.0-37.0); MCV 95.3 fL (80.0-100.0); Mean Platelet Volume 7.2; Monocytes # (A) 0.4 k/uL (0-1.0); Monocytes % (A) 3 %; Neutrophils # (A) 12.4 k/uL (1.3-7.7); Neutrophils % (A) 94 %; Platelet Count 239 k/uL (150-450); RBC 2.79 m/uL (3.80-5.40); RDW 12.5 % (11.5-15.5); WBC 13.3 k/uL (3.8-10.6)
[2024-06-04 23:57] LABS: ALT 19 U/L (4-34); AST 25 U/L (14-36); African American GFR (CKD) 46 (>60 ml/min/1.73 sqM); Albumin 4.2 g/dL (3.5-5.0); Alkaline Phosphatase 104 U/L (38-126); Anion Gap 9 mmol/L; Blood Urea Nitrogen 36 mg/dL (7-17); Carbon Dioxide 19 mmol/L (22-30); Chloride 112 mmol/L (98-107); Glucose 175 mg/dL (74-99); Lipase 23 U/L (23-300); Non-African American GFR(CKD) 40 (>60 ml/min/1.73 sqM); Potassium 3.7 mmol/L (3.5-5.1); Sodium 140 mmol/L (137-145); Total Protein 6.8 g/dL (6.3-8.2)
--- NOTE | 2024-06-05 05:31 | CT ---
EXAM: CT Abdomen and Pelvis Without Intravenous Contrast CLINICAL HISTORY: ITS.REASON CT Reason: abdominal pain TECHNIQUE: Axial computed tomography images of the abdomen and pelvis without intravenous contrast. CTDI is 10.8 mGy and DLP is 545.8 mGy-cm. This CT exam was performed using one or more of the following dose reduction techniques: automated exposure control, adjustment of the mA and/or kV according to patient size, and/or use of iterative reconstruction technique. COMPARISON: CT dated 05/17/2021 FINDINGS: Lung bases: Unremarkable. No mass. No consolidation. Mediastinum: Hiatal hernia containing the proximal portion of the stomach. ABDOMEN: Liver: The liver is enlarged with uniform decreased density consistent with hepatic steatosis. Gallbladder and bile ducts: Unremarkable. No calcified stones. No ductal dilation. Pancreas: Fatty replacement of the pancreatic parenchyma. No ductal dilation. Spleen: Unremarkable. No splenomegaly. Adrenals: Unremarkable. No mass. Kidneys and ureters: Nonobstructive left nephrolithiasis. Bosniak type I simple left renal cyst which does not require follow-up. Stomach and bowel: Colonic diverticulosis without evidence of acute diverticulitis. Mild to moderate colonic stool burden. No obstruction. PELVIS: Appendix: No findings to suggest acute appendicitis. Bladder: Unremarkable. No stones. Reproductive: Unremarkable as visualized. ABDOMEN and PELVIS: Intraperitoneal space: Unremarkable. No free air. No significant fluid collection. Bones/joints: Degenerative changes are seen within the spine and hips. No acute fracture. No dislocation. Soft tissues: Unremarkable. Vasculature: Unremarkable. No abdominal aortic aneurysm. Lymph nodes: Unremarkable. No enlarged lymph nodes. IMPRESSION: No acute intra-abdominal or pelvic findings.
[2024-06-05] MEDS ORDERED: MORPHINE SULFATE 4 MG/ML SYRINGE IV PRN (05:57)
[2024-06-05] MEDS ORDERED: ONDANSETRON 4 MG/2 ML VIAL IVP PRN (05:57)
[2024-06-05] MEDS ORDERED: NALOXONE 0.4 MG/ML 1 ML VIAL IV PRN (05:57)
[2024-06-05] MEDS: SODIUM CHLORIDE 0.9% 1,000 ML IV SCH (06:29)
[2024-06-05 06:35] VITALS: TEMP 98.1
[2024-06-05 10:32] VITALS: RESP 20
[2024-06-05] MEDS: PANTOPRAZOLE 40 MG/10 ML VIAL IV SCH (10:34)
[2024-06-05 12:06] LABS: Basophils % (A) 0 %; Eosinophils % (A) 0 %; HCT 35.3 % (34.0-46.0); HGB 11.9 gm/dL (11.4-16.0); Lymphocytes # (A) 0.3 k/uL (1.0-4.8); Lymphocytes % (A) 4 %; MCH 32.4 pg (25.0-35.0); MCHC 33.6 g/dL (31.0-37.0); MCV 96.3 fL (80.0-100.0); Mean Platelet Volume 7.3; Monocytes # (A) 0.3 k/uL (0-1.0); Monocytes % (A) 4 %; Neutrophils # (A) 7.4 k/uL (1.3-7.7); Neutrophils % (A) 91 %; Platelet Count 182 k/uL (150-450); RBC 3.66 m/uL (3.80-5.40); RDW 13.2 % (11.5-15.5); WBC 8.1 k/uL (3.8-10.6)
[2024-06-05 12:19] LABS: African American GFR (CKD) 43 (>60 ml/min/1.73 sqM); Anion Gap 11 mmol/L; Blood Urea Nitrogen 31 mg/dL (7-17); Calcium 8.9 mg/dL (8.4-10.2); Carbon Dioxide 24 mmol/L (22-30); Chloride 104 mmol/L (98-107); Glucose 129 mg/dL (74-99); Non-African American GFR(CKD) 37 (>60 ml/min/1.73 sqM); Potassium 3.7 mmol/L (3.5-5.1); Sodium 139 mmol/L (137-145)
[2024-06-05] MEDS: HEPARIN SODIUM,PORCINE 5,000 UNIT/ML 1 ML VIAL SQ SCH (15:34)
[2024-06-05 17:23] VITALS: BP 124/84; PULSE 64
== END 2024-06-05 17:23 ==
LOC: EC 20:30 → 6NMEDSUR 06-05 05:57
PROVIDERS: ADMIT Hospitalist; ATTEND Hospitalist
DX: E86.0 Dehydration (principal); I10 Essential (primary) hypertension; G47.33 Obstructive sleep apnea (adult) (pediatric); Z79.899 Other long term (current) drug therapy; Z85.43 Personal history of malignant neoplasm of ovary; Z87.442 Personal history of urinary calculi; Z87.891 Personal history of nicotine dependence; Z90.710 Acquired absence of both cervix and uterus; Z87.440 Personal history of urinary (tract) infections
CPT/HCPCS: 96361 ×2; 96374; 96375 ×2; 99285; 36415; 82747; 80053; 80048; 82607; 83605; 83690; 85025 ×2; 74176; G0378; J2270; J2405; J3490; J2470

== ENCOUNTER → 2024-07-16 | Outpatient (CLI) | payer MEDICARE ==
--- NOTE | 2024-07-16 13:37 | MR ---
INDICATION: Patient age:Female; 88 years old; Reason for study: I67.9 CEREBROVASCULAR DISEASE; [facility]. COMPARISON: CT brain 03/12/2024, CT brain C-spine 10/31/2023. TECHNIQUE: Multi planar, multi sequence imaging was performed through the brain without the administr ation intravenous contrast. FINDINGS: The vale-white junctions and basal cisterns appear unremarkable. Age-appropriate diffuse cerebral vol ume loss. Diffuse mild hydrocephalus. Diffusion-weighted imaging shows no evidence of restricted diff usion to suggest acute/subacute infarct. Intracranial arterial flow voids are maintained. Midline str uctures show no abnormality. Incidental left 6 mm Thornwaldt cyst. Patchy and confluent areas of high T2/FLAIR signal intensity are seen within the periventricular and subcortical white matter. The susc eptibility weighted images do not reveal any evidence for micro-hemorrhage. The bone marrow signal is within normal limits. The paranasal sinuses and globes are unremarkable. T race bilateral mastoid effusions redemonstrated. IMPRESSION: 1. No evidence of intracranial mass or acute/subacute infarct. 2. Moderate nonspecific white matter changes, likely related to small vessel ischemic disease. 3. Similar mild hydrocephalus likely related to level of cerebral atrophy however normal pressure hyd rocephalus is not excluded. Correlate clinically. [facility], , 07/16/2024 1:35 PM
== END | disposition home or self-care (01) ==
LOC: RADMRIMAIN 12:35
PROVIDERS: ATTEND Psychiatry & Neurology Neurology
DX: I67.9 Cerebrovascular disease, unspecified (principal); R90.82 White matter disease, unspecified; G91.8 Other hydrocephalus
CPT/HCPCS: 70551

== ENCOUNTER 2024-09-14 16:41 | Emergency (ER) | payer MEDICARE ==
[2024-09-14 16:48] VITALS: RESP 20; TEMP 98
--- NOTE | 2024-09-14 17:20 | ED ---
General Adult HPI - General Chief complaint: Back Pain/Injury Stated complaint: Fall-Back/R hip injury Time Seen by Provider: 09/14/24 17:15 Source: patient, RN notes reviewed Mode of arrival: wheelchair Limitations: no limitations - History of Present Illness Initial comments: 89-year-old female presenting with history of dementia presenting for right hip injury status post fall. Patient lives at assisted living facility and ambulates with a cane. Her gait has become progressively more unsteady due to her dementia. She had a fall witnessed by assisted living staff 3 days ago where she fell onto her right hip. Denies head injury. She has been able to ambulate however reports right hip pain worse with movement and weightbearing. She had an unwitnessed fall yesterday at 6 AM while getting up from bed. States she cannot remember if she hit her head. Denies blood thinners. Denies headache, chest pain, shortness of breath, altered mental status, abdominal pain. Denies other injuries from the fall. States she is going to ambulate wit h a walker from now on. - Related Data Home Medications Medication Instructions Recorded Confirmed Acetaminophen Tab [Tylenol] 500 - 1,000 mg PO Q6HR PRN 06/05/24 06/05/24 Fluticasone Furoate [Arnuity 1 puff INHALATION RT-DAILY 06/05/24 06/05/24 Ellipta] Folic Acid 1 mg PO DAILY 06/05/24 06/05/24 Hydrocortisone Valerate [Westcort 1 applic TOPICAL BID 06/05/24 06/05/24 0.2%] Lansoprazole 30 mg PO DAILY 06/05/24 06/05/24 Multivitamins, Thera [Multivitamin 1 tab PO DAILY 06/05/24 06/05/24 (formulary)] Sertraline HCl [Zoloft] 50 mg PO DAILY 06/05/24 06/05/24 Vaseline 1 applic TOPICAL DAILY 06/05/24 06/05/24 Previous Rx's Medication Instructions Recorded Losartan [Cozaar] 25 mg PO DAILY #30 tab 06/05/24 Allergies Allergy/AdvReac Type Severity Reaction Status Date / Time Penicillins Allergy Rash/Hives Verified 06/05/24 15:32 Sulfa (Sulfonamide Allergy Rash/Hives Verified 06/05/24 15:32 Antibiotics) Review of Systems ROS Statement: Those systems with pertinent positive or pertinent negative responses have been documented in the HPI. ROS Other: All systems not noted in ROS Statement are negative. Past Medical History Past Medical History: Hypertension Additional Past Medical History / Comment(s): L breast cancer with mastectomy, ovarian cancer with total hysterectomy/chemotherapy, skin cancer with removals, bowel obstructions, bronchitis, kidney stones, EDENILSON with Cpap, UTI, aura migraines, varicosities. History of Any Multi-Drug Resistant Organisms: None Reported Past Surgical History: Breast Surgery, Ear Surgery, Hysterectomy, Joint Replacement, Orthopedic Surgery, Tonsillectomy, Tubal Ligation Additional Past Surgical History / Comment(s): Abdominal surgery/adhesions removed, skin cancer removals, L mastectomy, total hysterectomy, surgery for kidney stones, total L knee arthroplasty, bilateral feet bunionectomies, colonoscopies, several L ear surgeries/myringtotomies/tubes/patch, R ear myringotomy/tube,lazy eye repair as child, Right knee 11/01/2022. Past Anesthesia/Blood Transfusion Reactions: No Reported Reaction, Previous Problems w/ Anesthesia Additional Past Anesthesia/Blood Transfusion Reaction / Comment(s): HAD HEMORRHAGING IN THROAT W/ INTUBATION FOR EAR SURGERY-SURGERY WAS CANCELLED AT THAT TIME; POSS DIFF INTUBATING. was in ICU for 3 days. pt states her PCP has been unable to get anesthesia record from [facility]. Past Psychological History: Anxiety, Depression Smoking Status: Former smoker Past Alcohol Use History: None Reported Past Drug Use History: None Reported - Past Family History Father Family Medical History: Cancer Mother Family Medical History: Cancer Additional Family Medical History / Comment(s): Mother had lung cancer. Mother Brother(s) Family Medical History: Cancer Brother(s) Family Medical History: Cancer General Exam Limitations: no limitations General appearance: alert, in no apparent distress Head exam: Present: atraumatic, normocephalic, normal inspection Eye exam: Present: normal appearance, PERRL, EOMI. Absent: scleral icterus, conjunctival injection, periorbital swelling ENT exam: Present: normal exam, mucous membranes moist Neck exam: Present: normal inspection. Absent: tenderness, meningismus, lymphadenopathy Respiratory exam: Present: normal lung sounds bilaterally. Absent: respiratory distress, wheezes, rales, rhonchi, stridor Cardiovascular Exam: Present: regular rate, normal rhythm, normal heart sounds. Absent: systolic murmur, diastolic murmur, rubs, gallop, clicks GI/Abdominal exam: Present: soft, normal bowel sounds. Absent: distended, tenderness, guarding, rebound, rigid Right Hip exam: Present: full ROM, tenderness, erythema. Absent: normal inspection (Large contusion present on posterior right hip, diffuse tenderness to palpation), swelling, abrasion, laceration, shortening Upper Leg exam: Present: normal inspection, full ROM. Absent: tenderness, swelling Knee exam: Present: normal inspection, full ROM. Absent: tenderness, swelling Lower Leg exam: Present: normal inspection, full ROM. Absent: tenderness, swelling Neurovascular tendon exam: Present: no vascular compromise. Absent: pulse deficit, abnormal cap refill, sensory deficit Back exam: Present: normal inspection, full ROM, other (Full strength and range of motion of bilateral lower extremities. Full sensation and DP pulses bilaterally. No saddle anesthesia). Absent: tenderness, CVA tenderness (R), CVA tenderness (L) Neurological exam: Present: alert, oriented X3 Psychiatric exam: Present: normal affect, normal mood Skin exam: Present: warm, dry, intact, normal color. Absent: rash Course Vital Signs 09/14/24 16:44 Temperature 98 F Pulse Rate 76 Respiratory 20 Rate Blood Pressure 147/71 O2 Sat by Pulse 98 Oximetry Medical Decision Making - Medical Decision Making Was pt. sent in by a medical professional or institution (, PA, TUB RIDER, urgent care, hospital, or half-way...) When possible be specific @ -No Did you speak to anyone other than the patient for history (EMS, parent, family, police, friend...)? What history was obtained from this source @ -Patient's power of community health nurse supplemented history Did you review nursing and triage notes (agree or disagree)? Why? @ -I reviewed and agree with nursing and triage notes Were old charts reviewed (outside hosp., previous admission, EMS record, old EKG, old radiological studies, urgent care reports/EKG's, half-way records)? Report findings @ -No old charts were reviewed Differential Diagnosis (chest pain, altered mental status, abdominal pain women, abdominal pain men, vaginal bleeding, weakness, fever, dyspnea, syncope, headache, dizziness, GI bleed, back pain, seizure, CVA, palpatations, mental health, musculoskeletal)? @ -Differential Musculoskeletal Muscular strain, contusion, ligament sprain, fracture, arthritis, septic arthritis, bursitis, cellulitis, muscle spasm, nerve compression, DVT, arterial occlusion, herpes zoster, electrolyte abnormality, tumor.... This is not meant to be in all inclusive list EKG interpreted by me (3pts min.). @ -None X-rays interpreted by me (1pt min.). @ -X-ray right hip reveals no acute process CT interpreted by me (1pt min.). @ -CT brain reveals no acute intracranial process U/S interpreted by me (1pt. min.). @ -None done What testing was considered but not performed or refused? (CT, X-rays, U/S, labs)? Why? @ -Patient declines pain medication What meds were considered but not given or refused? Why? @ -None Did you discuss the management of the patient with other professionals (professionals i.e. , PA, TUB RIDER, lab, RT, psych nurse, social worker aide, [employer] school professional, teacher, special police officer, case advocate)? Give summary @ -No Was smoking cessation discussed for >3mins.? @ -No Was critical care preformed (if so, how long)? @ -No Were there social determinants of health that impacted care today? How? (Homelessness, low income, unemployed, alcoholism, drug addiction, transportation, low edu. Level, literacy, decrease access to med. care, skilled nursing, rehab)? @ -No Was there de-escalation of care discussed even if they declined (Discuss DNR or withdrawal of care, Hospice)? DNR status @ -No What co-morbidities impacted this encounter? (DM, HTN, Smoking, COPD, CAD, Cancer, CVA, ARF, Chemo, Hep., AIDS, mental health diagnosis, sleep apnea, morbid obesity)? @ -None Was patient admitted / discharged? Hospital course, mention meds given and route, prescriptions, significant lab abnormalities, going to OR and other pertinent info. @ -Discharge. 89-year-old female presenting for right hip injury status post mechanical fall. Patient is able to weight-bear. Neurovascularly intact. There is a large contusion present on posterior right hip. Full range of motion of right hip, no shortening. X-ray right hip reveals no acute process. CT brain reveals no acute intracranial process. Discussed results with patient and power of community health nurse. Discussed diagnosis of right hip strain. Appropriate return precautions and follow-up care discussed. Case was discussed with my ED attending Dr. Cesar. Undiagnosed new problem with uncertain prognosis? @ -No Drug Therapy requiring intensive monitoring for toxicity (Heparin, Nitro, Insulin, Cardizem)? @ -No Were any procedures done? @ -No Diagnosis/symptom? @ -Right hip strain, gait disturbance Acute, or Chronic, or Acute on Chronic? @ -Acute Uncomplicated (without systemic symptoms) or Complicated (systemic symptoms)? @ -Uncomplicated Side effects of treatment? @ -No Exacerbation, Progression, or Severe Exacerbation? @ -No Poses a threat to life or bodily function? How? (Chest pain, USA, [place], pneumonia, PE, COPD, DKA, ARF, appy, cholecystitis, CVA, Diverticulitis, Homicidal, Suicidal, threat to staff... and all critical care pts) @ -No - Lab Data Result diagrams: 09/14/24 17:31 09/14/24 17:31 Lab Results 09/14/24 09/14/24 Range/Units 17:31 17:31 WBC 5.9 (3.8-10.6) k/uL RBC 4.23 (3.80-5.40) m/uL Hgb 13.2 (11.4-16.0) gm/dL Hct 39.7 (34.0-46.0) % MCV 93.7 (80.0-100.0) fL MCH 31.2 (25.0-35.0) pg MCHC 33.3 (31.0-37.0) g/dL RDW 12.1 (11.5-15.5) % Plt Count 200 (150-450) k/uL MPV 7.4 Neutrophils % 65 % Lymphocytes % 23 % Monocytes % 5 % Eosinophils % 5 % Basophils % 1 % Neutrophils # 3.9 (1.3-7.7) k/uL Lymphocytes # 1.4 (1.0-4.8) k/uL Monocytes # 0.3 (0-1.0) k/uL Eosinophils # 0.3 (0-0.7) k/uL Basophils # 0.0 (0-0.2) k/uL Sodium 137 (137-145) mmol/L Potassium 3.8 (3.5-5.1) mmol/L Chloride 104 (98-107) mmol/L Carbon Dioxide 24 (22-30) mmol/L Anion Gap 9 mmol/L BUN 24 H (7-17) mg/dL Creatinine 1.44 H (0.52-1.04) mg/dL Est GFR (CKD-EPI)AfAm 38 (>60 ml/min/1.73 sqM) Est GFR (CKD-EPI)NonAf 33 (>60 ml/min/1.73 sqM) Glucose 121 H (74-99) mg/dL Calcium 9.2 (8.4-10.2) mg/dL Total Bilirubin 0.5 (0.2-1.3) mg/dL AST 21 (14-36) U/L ALT 18 (4-34) U/L Alkaline Phosphatase 114 (38-126) U/L Total Protein 6.7 (6.3-8.2) g/dL Albumin 4.1 (3.5-5.0) g/dL Disposition Clinical Impression: Gait disturbance, Strain of right hip Disposition: HOME SELF-CARE Condition: Stable Instructions (If sedation given, give patient instructions): Hip Sprain (ED) Additional Instructions: Please return to the Emergency Department if symptoms worsen or any other concerns. Is patient prescribed a controlled substance at d/c from ED?: No Referrals: Maribeth Campo MD [Primary Care Provider] - 1-2 days Time of Disposition: 18:43
[2024-09-14 17:39] LABS: Basophils % (A) 1 %; Eosinophils # (A) 0.3 k/uL (0-0.7); Eosinophils % (A) 5 %; HCT 39.7 % (34.0-46.0); HGB 13.2 gm/dL (11.4-16.0); Lymphocytes # (A) 1.4 k/uL (1.0-4.8); Lymphocytes % (A) 23 %; MCH 31.2 pg (25.0-35.0); MCHC 33.3 g/dL (31.0-37.0); MCV 93.7 fL (80.0-100.0); Mean Platelet Volume 7.4; Monocytes # (A) 0.3 k/uL (0-1.0); Monocytes % (A) 5 %; Neutrophils # (A) 3.9 k/uL (1.3-7.7); Neutrophils % (A) 65 %; Platelet Count 200 k/uL (150-450); RBC 4.23 m/uL (3.80-5.40); RDW 12.1 % (11.5-15.5); WBC 5.9 k/uL (3.8-10.6)
[2024-09-14 17:48] LABS: ALT 18 U/L (4-34); AST 21 U/L (14-36); African American GFR (CKD) 38 (>60 ml/min/1.73 sqM); Albumin 4.1 g/dL (3.5-5.0); Alkaline Phosphatase 114 U/L (38-126); Anion Gap 9 mmol/L; Blood Urea Nitrogen 24 mg/dL (7-17); Calcium 9.2 mg/dL (8.4-10.2); Carbon Dioxide 24 mmol/L (22-30); Chloride 104 mmol/L (98-107); Glucose 121 mg/dL (74-99); Non-African American GFR(CKD) 33 (>60 ml/min/1.73 sqM); Potassium 3.8 mmol/L (3.5-5.1); Sodium 137 mmol/L (137-145); Total Bilirubin 0.5 mg/dL (0.2-1.3); Total Protein 6.7 g/dL (6.3-8.2)
--- NOTE | 2024-09-14 18:02 | CT ---
EXAMINATION TYPE: CT brain wo con DATE OF EXAM: 09/14/2024 5:50 PM COMPARISON: 03/12/2024. CLINICAL INDICATION: Female, 89 years old with history of fall with head injury, fall with head injur y TECHNIQUE: Brain: Axial CT images of the brain were obtained with coronal and sagittal reformats created and rev iewed. Contrast used: None. Oral contrast used: None. CT DLP: 1190.4 mGycm, Automated exposure control for dose reduction was used. FINDINGS: Brain: Extra-axial spaces: No abnormal extra-axial fluid collections. Ventricular system: Dilatation in proportion to cerebral atrophy. Cerebral parenchyma: Cerebral atrophy. No acute intraparenchymal hemorrhage or mass effect. The vale -white junction is well differentiated. Scattered hypoattenuating areas are seen within the white mat ter. Cerebellum: Unremarkable. Mass effect: No evidence of midline shift. Intracranial vasculature: Atherosclerotic calcifications of the intracranial vessels. Soft tissues: Normal. Calvarium/osseous structures: No depressed skull fracture. Paranasal sinuses and mastoid air cells: Mild scattered paranasal sinus disease. Visualized orbits: Bilateral aphakia IMPRESSION: 1. No acute intracranial process. 2. Nonspecific white matter changes, likely secondary to chronic small vessel ischemic disease. [facility], , 09/14/2024 5:59 PM
--- NOTE | 2024-09-14 18:09 | XR ---
EXAMINATION TYPE: XR Hip Complete RT DATE OF EXAM: 09/14/2024 5:39 PM COMPARISON: None CLINICAL INDICATION: Female, 89 years old with history of right hip injury; PHH, pain TECHNIQUE: XR Hip Complete RT; Frontal and lateral views FINDINGS: No evidence for acute process, joint dislocation or significant soft tissue swelling. Osteo phyte formation of the superior acetabulum of the hip and the femoral head. There is mild joint space narrowing. Surgical clips project over the right pelvis. IMPRESSION: 1. No evidence for acute process. 2. Moderate hip osteoarthrosis. [facility], , 09/14/2024 6:06 PM
[2024-09-14 18:47] VITALS: BP 151/70; PULSE 84
== END 2024-09-14 18:55 | disposition home or self-care (01) ==
LOC: EC 16:41
DX: S76.011A Strain of muscle, fascia and tendon of right hip, initial encounter (principal); R26.9 Unspecified abnormalities of gait and mobility; Z88.0 Allergy status to penicillin; Z88.2 Allergy status to sulfonamides; Z87.891 Personal history of nicotine dependence; W19.XXXA Unspecified fall, initial encounter; Y92.009 Unspecified place in unspecified non-institutional (private) residence as the place of occurrence of the external cause
CPT/HCPCS: 36415; 70450; 73502; 80053; 85025; 99284

== ENCOUNTER 2024-10-13 18:04 | Emergency (ER) | payer MEDICARE ==
[2024-10-13 18:10] VITALS: TEMP 98
--- NOTE | 2024-10-13 18:25 | ED ---
Fall HPI - General Chief Complaint: Fall Stated Complaint: Fall, laceration Time Seen by Provider: 10/13/24 18:11 Source: patient, EMS, RN notes reviewed Mode of arrival: EMS - History of Present Illness Initial Comments: This is an 89-year-old female presenting to emergency department via EMS from [facility] after a fall. Patient states that she was in the dining room when she went to stand up and was not using her walker. She tripped over a another resident's walker that was in front of her. She denies hitting her head or loss conscious at the time of the fall. Patient states that she is having mild pain to her left knee. States that she was able to ambulate after the fall. Denies hitting her head or loss of consciousness. Denies blood thinner use. No other acute complaints at this time. - Related Data Home Medications Medication Instructions Recorded Confirmed Acetaminophen Tab [Tylenol] 500 - 1,000 mg PO Q6HR PRN 06/05/24 06/05/24 Fluticasone Furoate [Arnuity 1 puff INHALATION RT-DAILY 06/05/24 06/05/24 Ellipta] Folic Acid 1 mg PO DAILY 06/05/24 06/05/24 Hydrocortisone Valerate [Westcort 1 applic TOPICAL BID 06/05/24 06/05/24 0.2%] Lansoprazole 30 mg PO DAILY 06/05/24 06/05/24 Multivitamins, Thera [Multivitamin 1 tab PO DAILY 06/05/24 06/05/24 (formulary)] Sertraline HCl [Zoloft] 50 mg PO DAILY 06/05/24 06/05/24 Vaseline 1 applic TOPICAL DAILY 06/05/24 06/05/24 Previous Rx's Medication Instructions Recorded Losartan [Cozaar] 25 mg PO DAILY #30 tab 06/05/24 Allergies Allergy/AdvReac Type Severity Reaction Status Date / Time Penicillins Allergy Rash/Hives Verified 10/13/24 18:10 Sulfa (Sulfonamide Allergy Rash/Hives Verified 10/13/24 18:10 Antibiotics) Review of Systems ROS Statement: Those systems with pertinent positive or pertinent negative responses have been documented in the HPI. ROS Other: All systems not noted in ROS Statement are negative. Past Medical History Past Medical History: Hypertension Additional Past Medical History / Comment(s): L breast cancer with mastectomy, ovarian cancer with total hysterectomy/chemotherapy, skin cancer with removals, bowel obstructions, bronchitis, kidney stones, EDENILSON with Cpap, UTI, aura migraines, varicosities. History of Any Multi-Drug Resistant Organisms: None Reported Past Surgical History: Breast Surgery, Ear Surgery, Hysterectomy, Joint Replacement, Orthopedic Surgery, Tonsillectomy, Tubal Ligation Additional Past Surgical History / Comment(s): Abdominal surgery/adhesions removed, skin cancer removals, L mastectomy, total hysterectomy, surgery for kidney stones, total L knee arthroplasty, bilateral feet bunionectomies, c olonoscopies, several L ear surgeries/myringtotomies/tubes/patch, R ear myringotomy/tube,lazy eye repair as child, Right knee 11/01/2022. Past Anesthesia/Blood Transfusion Reactions: No Reported Reaction, Previous Problems w/ Anesthesia Additional Past Anesthesia/Blood Transfusion Reaction / Comment(s): HAD HEMORRHAGING IN THROAT W/ INTUBATION FOR EAR SURGERY-SURGERY WAS CANCELLED AT THAT TIME; POSS DIFF INTUBATING. was in ICU for 3 days. pt states her PCP has been unable to get anesthesia record from [facility]. Past Psychological History: Anxiety, Depression Smoking Status: Former smoker Past Alcohol Use History: None Reported Past Drug Use History: None Reported - Past Family History Father Family Medical History: Cancer Mother Family Medical History: Cancer Additional Family Medical History / Comment(s): Mother had lung cancer. Mother Brother(s) Family Medical History: Cancer Brother(s) Family Medical History: Cancer General Exam Limitations: no limitations General appearance: alert, in no apparent distress ENT exam: Present: normal exam, mucous membranes moist Neck exam: Present: normal inspection. Absent: tenderness, meningismus, lymphadenopathy Respiratory exam: Present: normal lung sounds bilaterally. Absent: respiratory distress, wheezes, rales, rhonchi, stridor Cardiovascular Exam: Present: regular rate, normal rhythm, normal heart sounds. Absent: systolic murmur, diastolic murmur, rubs, gallop, clicks GI/Abdominal exam: Present: soft, normal bowel sounds. Absent: distended, tenderness, guarding, rebound, rigid Left Knee exam: Present: tenderness, swelling, laceration (6 inch laceration horizontal over the anterior knee) Neurovascular tendon exam: Present: no vascular compromise Back exam: Present: normal inspection Skin exam: Present: warm, dry, intact, normal color. Absent: rash Course Vital Signs 10/13/24 10/13/24 18:07 20:38 Temperature 98 F Pulse Rate 86 81 Respiratory 20 17 Rate Blood Pressure 175/75 158/72 O2 Sat by Pulse 97 95 Oximetry Procedures - Laceration Laceration #1 Consent Obtained: verbal consent Indication: laceration Site: lower extremity Size (cm): 16 Description: linear Depth: simple, single layer Anesthetic Used: lidocaine 1% Anesthesia Technique: local infiltration Amount (mls): 8 Pre-repair: wound explored, irrigated extensively, deep structures intact Type of Sutures: nylon Size of Sutures: 3-0 Number of Sutures: 12 Technique: simple, interrupted Patient Tolerated Procedure: well, no complications Medical Decision Making - Medical Decision Making Was pt. sent in by a medical professional or institution (KELSIE Garcia, DRAWBENCH OPERATOR HELPER, urgent care, hospital, or longterm...) When possible be specific @ -No Did you speak to anyone other than the patient for history (EMS, parent, family, police, friend...)? What history was obtained from this source @ -No Did you review nursing and triage notes (agree or disagree)? Why? @ -I reviewed and agree with nursing and triage notes Were old charts reviewed (outside hosp., previous admission, EMS record, old EKG, old radiological studies, urgent care reports/EKG's, longterm records)? Report findings @ -No old charts were reviewed Differential Diagnosis (chest pain, altered mental status, abdominal pain women, abdominal pain men, vaginal bleeding, weakness, fever, dyspnea, syncope, headache, dizziness, GI bleed, back pain, seizure, CVA, palpatations, mental health, musculoskeletal)? @ -Differential Musculoskeletal Muscular strain, contusion, ligament sprain, fracture, arthritis, septic arthritis, bursitis, cellulitis, muscle spasm, nerve compression, DVT, arterial occlusion, herpes zoster, electrolyte abnormality, tumor.... This is not meant to be in all inclusive list EKG interpreted by me (3pts min.). @ -None X-rays interpreted by me (1pt min.). @ -X-ray of the left knee completed reveals no osseous pathology with postsurgical changes in the left knee with hardware appearing intact CT interpreted by me (1pt min.). @ -None done U/S interpreted by me (1pt. min.). @ -None done What testing was considered but not performed or refused? (CT, X-rays, U/S, labs)? Why? @ -None What meds were considered but not given or refused? Why? @ -None Did you discuss the management of the patient with other professionals (professionals i.e. Dr., PA, DRAWBENCH OPERATOR HELPER, lab, RT, psych nurse, high school social science teacher, spice mixer, teacher, ecological technical officer, correctional counselor/case manager)? Give summary @ -No Was smoking cessation discussed for >3mins.? @ -No Was critical care preformed (if so, how long)? @ -No Were there social determinants of health that impacted care today? How? (Homelessness, low income, unemployed, alcoholism, drug addiction, transportation, low edu. Level, literacy, decrease access to med. care, long-term, rehab)? @ -No Was there de-escalation of care discussed even if they declined (Discuss DNR or withdrawal of care, Hospice)? DNR status @ -No What co-morbidities impacted this encounter? (DM, HTN, Smoking, COPD, CAD, Cancer, CVA, ARF, Chemo, Hep., AIDS, mental health diagnosis, sleep apnea, morbid obesity)? @ -None Was patient admitted / discharged? Hospital course, mention meds given and route, prescriptions, significant lab abnormalities, going to OR and other pertinent info. @ -Discharge. 89-year-old female presenting to the emergency department via EMS after a fall. There is a 6 inch laceration over the anterior left knee. Bleeding is controlled. Patient has full range of motion of the left knee and sensation is intact. X-ray reveals no acute osseous pathology with left knee hardware is intact on xray. Laceration was thoroughly cleansed with sterile water and Betadine solution. Deep structures are intact. 12 simple interrupted sutures were placed with 3-0 nylon. Patient is placed in a knee immobilizer. Return to emergency department or to PCP in 7 to 10 days for suture removal. Case discussed with Dr. Maciel Undiagnosed new problem with uncertain prognosis? @ -No Drug Therapy requiring intensive monitoring for toxicity (Heparin, Nitro, Insulin, Cardizem)? @ -No Were any procedures done? @ -No Diagnosis/symptom? @ -knee laceration, fall Acute, or Chronic, or Acute on Chronic? @ -acute Uncomplicated (without systemic symptoms) or Complicated (systemic symptoms)? @ -uncomplicated Side effects of treatment? @ -No Exacerbation, Progression, or Severe Exacerbation? @ -No Poses a threat to life or bodily function? How? (Chest pain, USA, [place], pneumonia, PE, COPD, DKA, ARF, appy, cholecystitis, CVA, Diverticulitis, Homicidal, Suicidal, threat to staff... and all critical care pts) @ -No Disposition Clinical Impression: Fall, Laceration Disposition: HOME SELF-CARE Condition: Good Instructions (If sedation given, give patient instructions): Care For Your Stitches (ED), Fall Prevention for Older Adults (ED) Additional Instructions: Please return to the Emergency Department if symptoms worsen or any other concerns. Return to the emergency department department care provider in 7 to 10 days for suture removal Is patient prescribed a controlled substance at d/c from ED?: No Referrals: Maribeth Campo MD [Primary Care Provider] - 1-2 days Time of Disposition: 19:47
[2024-10-13] MEDS: LIDOCAINE 1% INJ 10MG/ML (20 ML MDV) SQ ONE (18:35)
--- NOTE | 2024-10-13 18:41 | XR ---
EXAMINATION TYPE: XR knee complete LT DATE OF EXAM: 10/13/2024 6:37 PM INDICATION: Patient age:Female; 89 years old; Reason for study: fall, hx replacement, laceration; PHH. pain COMPARISON: None. TECHNIQUE: The Left knee(s) was examined in Frontal, lateral and oblique projections. FINDINGS: Postsurgical changes from left knee arthroplasty with distal femur and proximal tibial com ponents. Hardware appears intact. No acute fracture or dislocation. No soft tissue edema or joint eff usion. Vascular sclerosis identified. IMPRESSION: 1. No acute osseous pathology. 2. Postsurgical changes from left knee arthroplasty. Hardware appears intact. [facility], , 10/13/2024 6:39 PM
[2024-10-13 20:39] VITALS: BP 158/72; PULSE 81; RESP 17
== END 2024-10-13 20:39 | disposition home or self-care (01) ==
LOC: EC 18:04
DX: S81.012A Laceration without foreign body, left knee, initial encounter (principal); Z87.891 Personal history of nicotine dependence; Z88.0 Allergy status to penicillin; Z88.2 Allergy status to sulfonamides; W03.XXXA Other fall on same level due to collision with another person, initial encounter
CPT/HCPCS: 73562; 99283; 12005; L1830; J2003

== ENCOUNTER 2024-10-16 16:34 | Emergency (ER) | payer MEDICARE ==
[2024-10-16 16:40] VITALS: PULSE 78; TEMP 98
--- NOTE | 2024-10-16 16:44 | ED ---
Recheck HPI - General Chief Complaint: Skin/Abscess/Foreign Body Stated Complaint: L knee pain Time Seen by Provider: 10/16/24 16:43 Source: patient, RN notes reviewed, old records reviewed Mode of arrival: wheelchair Limitations: no limitations - History of Present Illness Initial Comments: This is an 89 female to ER for wound evaluation. Patient had laceration repair of the right knee laceration was repaired a few days ago and the sutures have begun to give out. Patient has no blood thinners no bleeding no fevers no other new complaints and no new injury MD Complaint: wound re-check Returns Today for: wound recheck Symptoms Since Prior Visit: no new symptoms Associated Symptoms: none Treatments Prior to Arrival: other (0) - Related Data Home Medications Medication Instructions Recorded Confirmed Acetaminophen Tab [Tylenol] 500 - 1,000 mg PO Q6HR PRN 06/05/24 06/05/24 Fluticasone Furoate [Arnuity 1 puff INHALATION RT-DAILY 06/05/24 06/05/24 Ellipta] Folic Acid 1 mg PO DAILY 06/05/24 06/05/24 Hydrocortisone Valerate [Westcort 1 applic TOPICAL BID 06/05/24 06/05/24 0.2%] Lansoprazole 30 mg PO DAILY 06/05/24 06/05/24 Multivitamins, Thera [Multivitamin 1 tab PO DAILY 06/05/24 06/05/24 (formulary)] Sertraline HCl [Zoloft] 50 mg PO DAILY 06/05/24 06/05/24 Vaseline 1 applic TOPICAL DAILY 06/05/24 06/05/24 Previous Rx's Medication Instructions Recorded Losartan [Cozaar] 25 mg PO DAILY #30 tab 06/05/24 Allergies Allergy/AdvReac Type Severity Reaction Status Date / Time Penicillins Allergy Rash/Hives Verified 10/13/24 18:10 Sulfa (Sulfonamide Allergy Rash/Hives Verified 10/13/24 18:10 Antibiotics) Review of Systems ROS Statement: Those systems with pertinent positive or pertinent negative responses have been documented in the HPI. ROS Other: All systems not noted in ROS Statement are negative. Past Medical History Past Medical History: Hypertension Additional Past Medical History / Comment(s): L breast cancer with mastectomy, ovarian cancer with total hysterectomy/chemotherapy, skin cancer with removals, bowel obstructions, bronchitis, kidney stones, EDENILSON with Cpap, UTI, aura migraines, varicosities. History of Any Multi-Drug Resistant Organisms: None Reported Past Surgical History: Breast Surgery, Ear Surgery, Hysterectomy, Joint Replacement, Orthopedic Surgery, Tonsillectomy, Tubal Ligation Additional Past Surgical History / Comment(s): Abdominal surgery/adhesions removed, skin cancer removals, L mastectomy, total hysterectomy, surgery for kidney stones, total L knee arthroplasty, bilateral feet bunionectomies, colonoscopies, several L ear surgeries/myringtotomies/tubes/patch, R ear myringotomy/tube,lazy eye repair as child, Right knee 11/01/2022. Past Anesthesia/Blood Transfusion Reactions: No Reported Reaction, Previous Problems w/ Anesthesia Additional Past Anesthesia/Blood Transfusion Reaction / Comment(s): HAD HEMORRHAGING IN THROAT W/ INTUBATION FOR EAR SURGERY-SURGERY WAS CANCELLED AT THAT TIME; POSS DIFF INTUBATING. was in ICU for 3 days. pt states her PCP has been unable to get anesthesia record from [facility]. Past Psychological History: Anxiety, Depression Smoking Status: Former smoker Past Alcohol Use History: None Reported Past Drug Use History: None Reported - Past Family History Father Family Medical History: Cancer Mother Family Medical History: Cancer Additional Family Medical History / Comment(s): Mother had lung cancer. Mother Brother(s) Family Medical History: Cancer Brother(s) Family Medical History: Cancer General Exam - General Exam Comments Initial Comments: New wound does have laceration that was repaired with sutures though sutures have torn open wound is healing by secondary intent not actively bleeding no signs of infection Limitations: no limitations General appearance: alert, in no apparent distress Head exam: Present: atraumatic, normocephalic, normal inspection Eye exam: Present: normal appearance, PERRL, EOMI. Absent: scleral icterus, conjunctival injection, periorbital swelling ENT exam: Present: normal exam, mucous membranes moist Neck exam: Present: normal inspection. Absent: tenderness, meningismus, lymphadenopathy Respiratory exam: Present: normal lung sounds bilaterally. Absent: respiratory distress, wheezes, rales, rhonchi, stridor Cardiovascular Exam: Present: regular rate, normal rhythm, normal heart sounds. Absent: systolic murmur, diastolic murmur, rubs, gallop, clicks GI/Abdominal exam: Present: soft, normal bowel sounds. Absent: distended, tenderness, guarding, rebound, rigid Extremities exam: Present: normal inspection, full ROM, normal capillary refill. Absent: tenderness, pedal edema, joint swelling, calf tenderness Back exam: Present: normal inspection Neurological exam: Present: alert, oriented X3, CN II-XII intact Psychiatric exam: Present: normal affect, normal mood Skin exam: Present: warm, dry, intact, normal color. Absent: rash Course Vital Signs 10/16/24 10/16/24 16:35 18:02 Temperature 98.0 F Pulse Rate 78 78 Respiratory 18 20 Rate Blood Pressure 179/75 171/61 O2 Sat by Pulse 93 L 94 L Oximetry - Reevaluation(s) Reevaluation #1: Medical records reviewed Reevaluation #2: Patient symptoms improved here in the ER Reevaluation #3: Patient informed of results and questions answered Reevaluation #4: Was pt. sent in by a medical professional or institution (, PA, WE[employer]ER [employer]IPPER, urgent care, hospital, or usp...) When possible be specific @ -no Did you speak to anyone other than the patient for history (EMS, parent, family, police, friend...)? What history was obtained from this source @ -no Did you review nursing and triage notes (agree or disagree)? Why? @ -agree Are old charts reviewed (outside hosp., previous admission, EMS record, old EKG, old radiological studies, urgent care reports/EKG's, usp records)? Report findings @ -yes Differential Diagnosis (chest pain, altered mental status, abdominal pain women, abdominal pain men, vaginal bleeding, weakness, fever, dyspnea, syncope, headache, dizziness, GI bleed, back pain, seizure, CVA, palpatations, mental health, musculoskeletal)? @ -prior EKG interpreted by me (3pts min.). @ -no X-rays interpreted by me (1pt min.). @ -no CT interpreted by me (1pt min.). @ -no U/S interpreted by me (1pt. min.). @ -no What testing was considered but not performed or refused? (CT, X-rays, U/S, labs)? Why? @ -none What meds were considered but not given or refused? Why? @ -none Did you discuss the management of the patient with other professionals (professionals i.e. , PA, WE[employer]PER, lab, RT, psych nurse, social media job titles, rocket test fire worker, teacher, labor relations officer, registered nurse hh case manager)? Give summary @ -no Was smoking cessation discussed for >3mins.? @ -no Was critical care preformed (if so, how long)? @ -no Were there social determinants of health that impacted care today? How? (Homelessness, low income, unemployed, alcoholism, drug addiction, transportation, low edu. Level, literacy, decrease access to med. care, care home, rehab)? @ -none Was there de-escalation of care discussed even if they declined (Discuss DNR or withdrawal of care, Hospice)? DNR status @ -no What co-morbidities impacted this encounter? (DM, HTN, Smoking, COPD, CAD, Cancer, CVA, ARF, Chemo, Hep., AIDS, mental health diagnosis, sleep apnea, morbid obesity)? @ -none Was patient admitted / discharged? Hospital course, mention meds given and route, prescriptions, significant lab abnormalities, going to OR and other pertinent info. @ - 89 female to the ER for evaluation of sutures that tore open over laceration on knee, wound is here and healing by secondary intent, sutures removed and patient will continue to keep laceration wrapped Discharge Undiagnosed new problem with uncertain prognosis? @ -no Drug Therapy requiring intensive monitoring for toxicity (Heparin, Nitro, Insulin, Cardizem)? @ -no Were any procedures done? @ -no Diagnosis/symptom? @ - Acute, or Chronic, or Acute on Chronic? @ -Acute Uncomplicated (without systemic symptoms) or Complicated (systemic symptoms)? @ -Complicated Side effects of treatment? @ -no Exacerbation, Progression, or Severe Exacerbation? @ -exacerbation Poses a threat to life or bodily function? How? (Chest pain, [place], [place], pneumonia, PE, COPD, DKA, ARF, appy, cholecystitis, CVA, Diverticulitis, Homicidal, Suicidal, threat to staff... and all critical care pts) @ -no Medical Decision Making - Medical Decision Making 89 female to the ER for evaluation of sutures that tore open over laceration on knee, wound is here and healing by secondary intent, sutures removed and patient will continue to keep laceration wrapped Disposition Clinical Impression: Encounter for wound care Disposition: HOME SELF-CARE Condition: Good Instructions (If sedation given, give patient instructions): Acute Wound Care (ED) Is patient prescribed a controlled substance at d/c from ED?: No Referrals: Maribeth Campo MD [Primary Care Provider] - 1-2 days Time of Disposition: 17:00
[2024-10-16 18:03] VITALS: BP 171/61; RESP 20
== END 2024-10-16 18:03 | disposition home or self-care (01) ==
LOC: EC 16:34
DX: Z48.00 Encounter for change or removal of nonsurgical wound dressing (principal); Z87.891 Personal history of nicotine dependence; Z88.0 Allergy status to penicillin; Z88.1 Allergy status to other antibiotic agents; Z88.2 Allergy status to sulfonamides; Z88.8 Allergy status to other drugs, medicaments and biological substances
CPT/HCPCS: 99283